=== PATIENT | female | born 1990 | race African-American/Black ===

== ENCOUNTER 2020-02-03 15:18 | Inpatient (IN) | payer BC ==
[2020-02-03] MEDS ORDERED: Lidocaine 1% 50 ML MDV INJECT PRN (15:54)
[2020-02-03] MEDS ORDERED: Water For Irrigation,Sterile 1,000 ML Container IRR PRN (15:54)
[2020-02-03] MEDS ORDERED: Tranexamic Acid 1,000 MG in Sodium Chloride 0.9% 100 ML IV PRN (15:54)
[2020-02-03] MEDS ORDERED: Nalbuphine 10 MG/1 ML Vial IVPUSH PRN (15:54)
[2020-02-03] MEDS ORDERED: Methylergonovine 0.2 MG/1 ML Amp IM PRN (15:54)
[2020-02-03] MEDS ORDERED: Misoprostol 200 MCG Tab PO PRN (15:54)
[2020-02-03] MEDS ORDERED: Sodium Chloride 0.9% 10 ML SDV IV PRN (15:54)
[2020-02-03] MEDS ORDERED: Sodium Chloride 0.9% 10 ML Syringe FLUSH PRN (15:54)
[2020-02-03] MEDS ORDERED: Sodium Chloride 0.9% 2.5 ML Syringe FLUSH PRN (15:54)
[2020-02-03] MEDS ORDERED: Butorphanol 1 MG/ML SDV IVPUSH PRN (15:54)
[2020-02-03] MEDS ORDERED: Carboprost Tromethamine 250 MCG/1 ML Amp IM PRN (15:54)
[2020-02-03] MEDS ORDERED: Oxytocin/0.9 % Sodium Chloride 30 UNIT/500 ML BAG IV SCH ×2 (16:00→21:00)
[2020-02-03] MEDS ORDERED: Lactated Ringers 1,000 ML IV SCH (16:00)
[2020-02-03] MEDS ORDERED: Bisacodyl 10 MG Supp RECTAL PRN ×2 (19:21→21:56)
[2020-02-03] MEDS ORDERED: oxyCODONE 5 MG Tab PO PRN ×2 (19:21→21:56)
[2020-02-03] MEDS ORDERED: Benzocaine/Menthol 20%-0.5% Spray 78 GM Cannister TOP PRN ×2 (19:21→21:56)
[2020-02-03] MEDS ORDERED: Acetaminophen 500 MG Tab PO PRN ×2 (19:21→21:56)
[2020-02-03] MEDS ORDERED: Docusate Sodium 100 MG Cap PO PRN ×2 (19:21→21:56)
[2020-02-03] MEDS ORDERED: Lanolin 100% Cream 7 GM Tube TOP PRN ×2 (19:21→21:56)
[2020-02-03] MEDS ORDERED: Witch Hazel Medicated Pads 40/Jar TOP PRN ×2 (19:21→21:56)
[2020-02-03] MEDS ORDERED: Ibuprofen 800 MG Tab PO PRN (19:21)
--- NOTE | 2020-02-03 22:00 | PCM.DEL ---
L & D Note - General Info Date of Service: 02/03/20 Mother's Due Date: 02/17/20 - Delivery Note Labor: Spontaneous Delivery Outcome: Livebirth Infant Delivery Method: Spontaneous Vaginal Delivery-Single Presentation: Vertex Nuchal Cord: None Anesthesia Type: None Amniotic Fluid Description: Clear Episiotomy Type: None Laceration: None Placenta: Intact, Spontaneous Cord: 3 Vessels : Bulb Syringe, Stimulated, [place] Used Score 1 min: 8 Score 5 min: 9 - General Info Date of Service: 02/03/20 - Patient Data Weight - Most Recent: 75.296 kg Lab Results Last 24 Hours: Laboratory Results - last 24 hr 02/03/20 02/03/20 Range/Units 17:08 17:08 WBC 8.67 (4.0-11.0) K/uL RBC 4.08 L (4.30-5.90) M/uL Hgb 11.6 L (12.0-16.0) g/dL Hct 35.8 L (36.0-46.0) % MCV 87.7 (80.0-98.0) fL MCH 28.4 (27.0-32.0) pg MCHC 32.4 (31.0-37.0) g/dL RDW Std Deviation 46.0 (28.0-62.0) fl RDW Coeff of Conchita 14 (11.0-15.0) % Plt Count 235 (150-400) K/uL MPV 12.00 (7.40-12.00) fL Nucleated RBC % 0.2 /100WBC Nucleated RBCs # 0 K/uL Blood Type A POSITIVE Antibody Screen NEGATIVE Med Orders - Current: Current Medications Acetaminophen (Tylenol Extra Strength) 1,000 mg PO Q6H PRN PRN Reason: Pain Benzocaine/Menthol (Dermoplast Pain Relief 20%-0.5% [place]) 78 gm TOP ASDIRECTED PRN PRN Reason: Perineal Comfort Measure Bisacodyl (Dulcolax) 10 mg RECTAL ONETIME PRN PRN Reason: Constipation Butorphanol Tartrate (Stadol) 1 mg IVPUSH Q1H PRN PRN Reason: Pain Last Admin: 02/03/20 21:14 Dose: 1 mg Carboprost Tromethamine (Hemabate Ds) 250 mcg IM ASDIRECTED PRN PRN Reason: Post Hemorrhage Docusate Sodium (Colace) 100 mg PO BID PRN PRN Reason: Constipation Emollient Ointment (Lansinoh Hpa) 0 gm TOP ASDIRECTED PRN PRN Reason: Sore Nipples Tranexamic Acid 1,000 mg/ (Sodium Chloride) 110 mls @ 660 mls/hr IV ONETIME PRN PRN Reason: Bleeding Lactated Ringer's (Ringers, Lactated) 1,000 mls @ 150 mls/hr IV ASDIRECTED MAE Oxytocin/Sodium Chloride (Oxytocin 30 Unit/500 Ml-Ns) 30 unit in 500 mls @ 500 mls/hr IV TITRATE MAE Last Admin: 02/03/20 21:48 Dose: 500 mls/hr Oxytocin/Sodium Chloride (Oxytocin 30 Unit/500 Ml-Ns) 30 unit in 500 mls @ 2 mls/hr IV TITRATE MAE; Protocol Ibuprofen (Motrin) 800 mg PO Q8H PRN PRN Reason: Pain Lidocaine HCl (Xylocaine 1%) 50 ml INJECT ONETIME PRN PRN Reason: Laceration repair Methylergonovine Maleate (Methergine) 0.2 mg IM ASDIRECTED PRN PRN Reason: Post Hemorrhage Misoprostol (Cytotec) 200 mcg PO ONETIME PRN PRN Reason: Post Hemorrhage Nalbuphine HCl (Nubain) 10 mg IVPUSH Q1H PRN PRN Reason: Pain (severe 7-10) Oxycodone HCl (Oxycodone) 5 mg PO Q2H PRN PRN Reason: Pain Sodium Chloride (Saline Flush) 10 ml FLUSH ASDIRECTED PRN PRN Reason: Keep Vein Open Sodium Chloride (Saline Flush) 2.5 ml FLUSH ASDIRECTED PRN PRN Reason: Keep Vein Open Sodium Chloride (Normal Saline) 10 ml IV ASDIRECTED PRN PRN Reason: IV Use Sterile Water (Sterile Water For Irrigation) 1,000 ml IRR ASDIRECTED PRN PRN Reason: delivery Last Admin: 02/03/20 21:48 Dose: 1,000 ml Witch Nayeli (Tucks) 1 pad TOP ASDIRECTED PRN PRN Reason: comfort care Discontinued Medications Acetaminophen (Tylenol Extra Strength) 1,000 mg PO Q6H PRN PRN Reason: Pain Benzocaine/Menthol (Dermoplast Pain Relief 20%-0.5% [place]) 78 gm TOP ASDIRECTED PRN PRN Reason: Perineal Comfort Measure Bisacodyl (Dulcolax) 10 mg RECTAL ONETIME PRN PRN Reason: Constipation Docusate Sodium (Colace) 100 mg PO BID PRN PRN Reason: Constipation Emollient Ointment (Lansinoh Hpa) 0 gm TOP ASDIRECTED PRN PRN Reason: Sore Nipples Ibuprofen (Motrin) 800 mg PO Q8H PRN PRN Reason: Pain Oxycodone HCl (Oxycodone) 5 mg PO Q2H PRN PRN Reason: Pain Witch Nayeli (Tucks) 1 pad TOP ASDIRECTED PRN PRN Reason: comfort care - Problem List & Annotations (1) Vaginal delivery SNOMED Code(s): 326122475 Code(s): O80 - ENCOUNTER FOR FULL-TERM UNCOMPLICATED DELIVERY Status: Acute Current Visit: Yes - Problem List Review Problem List Initiated/Reviewed/Updated: Yes - My Orders Last 24 Hours: My Active Orders 02/03/20 15:27 Up ad Jina [RC] ASDIRECTED Vital Signs [RC] PER UNIT ROUTINE Resuscitation Status Routine 02/03/20 15:54 Patient Status [ADT] Routine May Shower [RC] ASDIRECTED Notify Provider [RC] PRN Butorphanol [Stadol] 1 mg IVPUSH Q1H PRN Carboprost Tromethamine [Hemabate DS] 250 mcg IM ASDIRECTED PRN Lidocaine 1% [Xylocaine 1%] 50 ml INJECT ONETIME PRN Methylergonovine [Methergine] 0.2 mg IM ASDIRECTED PRN Nalbuphine [Nubain] 10 mg IVPUSH Q1H PRN Sodium Chloride 0.9% [Normal Saline] 10 ml IV ASDIRECTED PRN Sodium Chloride 0.9% [Saline Flush] 10 ml FLUSH ASDIRECTED PRN Sodium Chloride 0.9% [Saline Flush] 2.5 ml FLUSH ASDIRECTED PRN Tranexamic Acid [Cyklokapron] 1,000 mg Sodium Chloride 0.9% [Normal Saline] 100 ml IV ONETIME Water For Irrigation,Sterile [Sterile Water for Irrigation] 1,000 ml IRR ASDIRECTED PRN miSOPROStoL [Cytotec] 200 mcg PO ONETIME PRN Scalp Electrode [WOMSER] Per Unit Routine Peripheral IV Insertion Adult [OM.PC] Routine 02/03/20 16:00 Lactated Ringers [Ringers, Lactated] 1,000 ml IV ASDIRECTED Oxytocin/0.9 % Sodium Chloride [Oxytocin 30 Unit/500 ML-NS] 30 unit in 500 ml IV TITRATE 02/03/20 17:08 RPR (SYPHILIS SERO) W/ RFLX [REF] Routine 02/03/20 19:21 May Shower [RC] ASDIRECTED Notify Provider Vital Signs [RC] ASDIRECTED Up ad Jina [RC] ASDIRECTED Vital Signs [RC] PER UNIT ROUTINE 02/03/20 19:22 Cooling Warming Measures [RC] ASDIRECTED 02/03/20 21:00 Oxytocin/0.9 % Sodium Chloride [Oxytocin 30 Unit/500 ML-NS] 30 unit in 500 ml IV TITRATE 02/03/20 21:56 Patient Status [ADT] Routine Cooling Warming Measures [RC] ASDIRECTED May Shower [RC] ASDIRECTED Notify Provider Vital Signs [RC] ASDIRECTED Up ad Jina [RC] ASDIRECTED Vital Signs [RC] PER UNIT ROUTINE Acetaminophen [Tylenol Extra Strength] 1,000 mg PO Q6H PRN Benzocaine/Menthol [Dermoplast Pain Relief 20%-0.5% [place]] 78 gm TOP ASDIRECTED PRN Docusate Sodium [Colace] 100 mg PO BID PRN Ibuprofen [Motrin] 800 mg PO Q8H PRN Lanolin [Lansinoh HPA] See Dose Instructions TOP ASDIRECTED PRN bisacodyL [Dulcolax] 10 mg RECTAL ONETIME PRN oxyCODONE 5 mg PO Q2H PRN witch Nayeli [Tucks] 1 pad TOP ASDIRECTED PRN Assess Lochia [WOMSER] Per Unit Routine Assess Uterine Involution [WOMSER] Per Unit Routine Breast Pump [WOMSER] Per Unit Routine Ice Therapy [OM.PC] Per Unit Routine Perineal Care [OM.PC] Per Unit Routine Peripheral IV Discontinue [OM.PC] Routine Sitz Bath [OM.PC] Per Unit Routine 02/03/20 Dinner Clear Liquid Diet [DIET] Regular Diet [DIET] 02/04/20 05:11 HEMOGLOBIN/HEMATOCRIT,HH [HEME] Timed - Assessment Assessment:: 29yo s/p at 38w0d. - Plan Plan:: Admit to unit for routine care.
--- NOTE | 2020-02-03 22:59 | OR ---
SURGEON: Margot Dumont MD DATE OF PROCEDURE: 02/03/2020 PREOPERATIVE DIAGNOSES: 1. A 29-year-old G3, P2-0-0-2 at 38 weeks and 0 days' gestation. 2. Spontaneous rupture of membranes. 3. GBS negative. POSTOPERATIVE DIAGNOSES: 1. A 29-year-old G3, P2-0-0-2, status post spontaneous vaginal delivery at 38 weeks and 0 days' gestation. 2. GBS negative. PROCEDURE: Spontaneous vaginal delivery. PRIMARY SURGEON: Margot Dumont MD ANESTHESIA: None. FINDINGS: Live male in cephalic presentation. score of 8 and 9 at one and five minutes respectively. Weight pending. Placenta intact with three-vessel cord. No perineal lacerations. INDICATIONS: This is a 29-year-old G3, P2-0-0-2, who presented at 38 weeks and 0 days' gestation complaining of spontaneous rupture of membranes at roughly 2 p.m. Upon presentation, her cervix was found to be 1 cm dilated, but she was bud. She progressed to 3 cm dilated and remained for 3 hours. At this time, a decision was made to start Pitocin, however, before the Pitocin could be started, the patient progressed to 6 cm, and shortly thereafter became complete. I was called to the room. DESCRIPTION OF PROCEDURE: The patient progressed to complete cervical dilation. She began pushing. The head delivered, followed quickly by the shoulders and the remainder of the body. The infant was placed on the maternal abdomen. After approximately 60 seconds, the cord was clamped and cut. The placenta then delivered intact and with three- vessel cord via the Lei-Mulligan maneuver. The perineum was inspected and no lacerations were noted. Estimated blood loss was 200 mL. The fundus was firm with minimal lochia. The infant and the patient tolerated the delivery well. [id number] / MODL /[id number]
[2020-02-04] MEDS: Ibuprofen 800 MG Tab PO PRN ×2 (01:17→19:27)
--- NOTE | 2020-02-04 12:19 | PCM.PNPP ---
- General Info Date of Service: 02/04/20 Admission Dx/Problem (Free Text): Patient doing well. Minimal lochia. Pain controlled. Voiding, ambulating, and tolerating oral intake. going well. Functional Status: Reports: Pain Controlled, Tolerating Diet, Ambulating, Urinating - Review of Systems General: Reports: No Symptoms HEENT: Reports: No Symptoms Pulmonary: Reports: No Symptoms Cardiovascular: Reports: No Symptoms Gastrointestinal: Reports: No Symptoms Genitourinary: Reports: No Symptoms Musculoskeletal: Reports: No Symptoms Skin: Reports: No Symptoms Neurological: Reports: No Symptoms Psychiatric: Reports: No Symptoms - Patient Data Vital Signs - Most Recent: Last Vital Signs Temp 36.1 C 02/04/20 08:30 Pulse 73 02/04/20 08:30 Resp 16 02/04/20 08:30 BP 122/89 02/04/20 08:30 Pulse Ox 100 02/04/20 08:30 Weight - Most Recent: 75.296 kg Lab Results - Last 24 Hours: Laboratory Results - last 24 hr 02/03/20 02/03/20 02/04/20 Range/Units 17:08 17:08 05:55 WBC 8.67 (4.0-11.0) K/uL RBC 4.08 L (4.30-5.90) M/uL Hgb 11.6 L 11.4 L (12.0-16.0) g/dL Hct 35.8 L 35.3 L (36.0-46.0) % MCV 87.7 (80.0-98.0) fL MCH 28.4 (27.0-32.0) pg MCHC 32.4 (31.0-37.0) g/dL RDW Std Deviation 46.0 (28.0-62.0) fl RDW Coeff of Conchita 14 (11.0-15.0) % Plt Count 235 (150-400) K/uL MPV 12.00 (7.40-12.00) fL Nucleated RBC % 0.2 /100WBC Nucleated RBCs # 0 K/uL Blood Type A POSITIVE Antibody Screen NEGATIVE Med Orders - Current: Current Medications Acetaminophen (Tylenol Extra Strength) 1,000 mg PO Q6H PRN PRN Reason: Pain Last Admin: 02/04/20 08:38 Dose: 1,000 mg Benzocaine/Menthol (Dermoplast Pain Relief 20%-0.5% [place]) 78 gm TOP ASDIRECTED PRN PRN Reason: Perineal Comfort Measure Bisacodyl (Dulcolax) 10 mg RECTAL ONETIME PRN PRN Reason: Constipation Butorphanol Tartrate (Stadol) 1 mg IVPUSH Q1H PRN PRN Reason: Pain Last Admin: 02/03/20 21:14 Dose: 1 mg Carboprost Tromethamine (Hemabate Ds) 250 mcg IM ASDIRECTED PRN PRN Reason: Post Hemorrhage Docusate Sodium (Colace) 100 mg PO BID PRN PRN Reason: Constipation Last Admin: 02/04/20 08:37 Dose: 100 mg Emollient Ointment (Lansinoh Hpa) 0 gm TOP ASDIRECTED PRN PRN Reason: Sore Nipples Tranexamic Acid 1,000 mg/ (Sodium Chloride) 110 mls @ 660 mls/hr IV ONETIME PRN PRN Reason: Bleeding Lactated Ringer's (Ringers, Lactated) 1,000 mls @ 150 mls/hr IV ASDIRECTED MAE Oxytocin/Sodium Chloride (Oxytocin 30 Unit/500 Ml-Ns) 30 unit in 500 mls @ 500 mls/hr IV TITRATE MAE Last Admin: 02/03/20 21:48 Dose: 500 mls/hr Oxytocin/Sodium Chloride (Oxytocin 30 Unit/500 Ml-Ns) 30 unit in 500 mls @ 2 mls/hr IV TITRATE MAE; Protocol Ibuprofen (Motrin) 800 mg PO Q8H PRN PRN Reason: Pain Last Admin: 02/04/20 01:17 Dose: 800 mg Lidocaine HCl (Xylocaine 1%) 50 ml INJECT ONETIME PRN PRN Reason: Laceration repair Methylergonovine Maleate (Methergine) 0.2 mg IM ASDIRECTED PRN PRN Reason: Post Hemorrhage Misoprostol (Cytotec) 200 mcg PO ONETIME PRN PRN Reason: Post Hemorrhage Nalbuphine HCl (Nubain) 10 mg IVPUSH Q1H PRN PRN Reason: Pain (severe 7-10) Oxycodone HCl (Oxycodone) 5 mg PO Q2H PRN PRN Reason: Pain Sodium Chloride (Saline Flush) 10 ml FLUSH ASDIRECTED PRN PRN Reason: Keep Vein Open Sodium Chloride (Saline Flush) 2.5 ml FLUSH ASDIRECTED PRN PRN Reason: Keep Vein Open Sodium Chloride (Normal Saline) 10 ml IV ASDIRECTED PRN PRN Reason: IV Use Sterile Water (Sterile Water For Irrigation) 1,000 ml IRR ASDIRECTED PRN PRN Reason: delivery Last Admin: 02/03/20 21:48 Dose: 1,000 ml Witch Nayeli (Tucks) 1 pad TOP ASDIRECTED PRN PRN Reason: comfort care Discontinued Medications Acetaminophen (Tylenol Extra Strength) 1,000 mg PO Q6H PRN PRN Reason: Pain Benzocaine/Menthol (Dermoplast Pain Relief 20%-0.5% [place]) 78 gm TOP ASDIRECTED PRN PRN Reason: Perineal Comfort Measure Bisacodyl (Dulcolax) 10 mg RECTAL ONETIME PRN PRN Reason: Constipation Docusate Sodium (Colace) 100 mg PO BID PRN PRN Reason: Constipation Emollient Ointment (Lansinoh Hpa) 0 gm TOP ASDIRECTED PRN PRN Reason: Sore Nipples Ibuprofen (Motrin) 800 mg PO Q8H PRN PRN Reason: Pain Oxycodone HCl (Oxycodone) 5 mg PO Q2H PRN PRN Reason: Pain Witch Nayeli (Tucks) 1 pad TOP ASDIRECTED PRN PRN Reason: comfort care - Infant Interaction Disposition, : [place] to Nursery Feeding: Attempted ; Nursed Fair/Poor Support Person: - Recovery Exam Fundal Tone: Firm Fundal Level: 2 Fingerbreadths Below Umbilicus Fundal Placement: Midline Lochia Amount: Scant Lochia Color: Rubra/Red Bladder Status: Voiding Urinary Elimination: Voided - Exam General: Alert Neck: Supple Lungs: Clear to Auscultation, Normal Respiratory Effort Cardiovascular: Regular Rate, Regular Rhythm GI/Abdominal Exam: Soft, Non-Tender Extremities: Non-Tender, No Pedal Edema Skin: Warm, Dry, Intact Neurological: No New Focal Deficit Psy/Mental Status: Alert, Normal Affect, Normal Mood - Problem List & Annotations (1) Vaginal delivery SNOMED Code(s): 895037726 Code(s): O80 - ENCOUNTER FOR FULL-TERM UNCOMPLICATED DELIVERY Status: Acute Current Visit: Yes - Problem List Review Problem List Initiated/Reviewed/Updated: Yes - My Orders Last 24 Hours: My Active Orders 02/03/20 15:27 Vital Signs [RC] PER UNIT ROUTINE Resuscitation Status Routine 02/03/20 15:54 Patient Status [ADT] Routine Notify Provider [RC] PRN Butorphanol [Stadol] 1 mg IVPUSH Q1H PRN Carboprost Tromethamine [Hemabate DS] 250 mcg IM ASDIRECTED PRN Lidocaine 1% [Xylocaine 1%] 50 ml INJECT ONETIME PRN Methylergonovine [Methergine] 0.2 mg IM ASDIRECTED PRN Nalbuphine [Nubain] 10 mg IVPUSH Q1H PRN Sodium Chloride 0.9% [Normal Saline] 10 ml IV ASDIRECTED PRN Sodium Chloride 0.9% [Saline Flush] 10 ml FLUSH ASDIRECTED PRN Sodium Chloride 0.9% [Saline Flush] 2.5 ml FLUSH ASDIRECTED PRN Tranexamic Acid [Cyklokapron] 1,000 mg Sodium Chloride 0.9% [Normal Saline] 100 ml IV ONETIME Water For Irrigation,Sterile [Sterile Water for Irrigation] 1,000 ml IRR ASDIRECTED PRN miSOPROStoL [Cytotec] 200 mcg PO ONETIME PRN Scalp Electrode [WOMSER] Per Unit Routine Peripheral IV Insertion Adult [OM.PC] Routine 02/03/20 16:00 Lactated Ringers [Ringers, Lactated] 1,000 ml IV ASDIRECTED Oxytocin/0.9 % Sodium Chloride [Oxytocin 30 Unit/500 ML-NS] 30 unit in 500 ml IV TITRATE 02/03/20 17:08 RPR (SYPHILIS SERO) W/ RFLX [REF] Routine 02/03/20 19:21 May Shower [RC] ASDIRECTED Notify Provider Vital Signs [RC] ASDIRECTED Up ad Jina [RC] ASDIRECTED Vital Signs [RC] PER UNIT ROUTINE 02/03/20 19:22 Cooling Warming Measures [RC] ASDIRECTED 02/03/20 21:00 Oxytocin/0.9 % Sodium Chloride [Oxytocin 30 Unit/500 ML-NS] 30 unit in 500 ml IV TITRATE 02/03/20 21:56 Patient Status [ADT] Routine May Shower [RC] ASDIRECTED Notify Provider Vital Signs [RC] ASDIRECTED Up ad Jina [RC] ASDIRECTED Acetaminophen [Tylenol Extra Strength] 1,000 mg PO Q6H PRN Benzocaine/Menthol [Dermoplast Pain Relief 20%-0.5% [place]] 78 gm TOP ASDIRECTED PRN Docusate Sodium [Colace] 100 mg PO BID PRN Ibuprofen [Motrin] 800 mg PO Q8H PRN Lanolin [Lansinoh HPA] See Dose Instructions TOP ASDIRECTED PRN bisacodyL [Dulcolax] 10 mg RECTAL ONETIME PRN oxyCODONE 5 mg PO Q2H PRN witch Nayeli [Tucks] 1 pad TOP ASDIRECTED PRN Assess Lochia [WOMSER] Per Unit Routine Assess Uterine Involution [WOMSER] Per Unit Routine Breast Pump [WOMSER] Per Unit Routine Ice Therapy [OM.PC] Per Unit Routine Perineal Care [OM.PC] Per Unit Routine Peripheral IV Discontinue [OM.PC] Routine Sitz Bath [OM.PC] Per Unit Routine 02/03/20 Dinner Clear Liquid Diet [DIET] Regular Diet [DIET] 02/04/20 12:17 Ready for Discharge [RC] PER UNIT ROUTINE - Assessment Assessment:: 29yo s/p at 38w0d, PPD#1. - Plan Plan:: Patient desires discharge home today. Reviewed discharge instructions. All questions answered.
--- NOTE | 2020-02-05 07:26 | PCM.PNPP ---
- General Info Date of Service: 02/05/20 Admission Dx/Problem (Free Text): Patient doing well. Minimal lochia. Pain controlled. Voiding, ambulating, and tolerating oral intake. going well. Functional Status: Reports: Pain Controlled, Tolerating Diet, Ambulating, Urinating - Review of Systems General: Reports: No Symptoms HEENT: Reports: No Symptoms Pulmonary: Reports: No Symptoms Cardiovascular: Reports: No Symptoms Gastrointestinal: Reports: No Symptoms Genitourinary: Reports: No Symptoms Musculoskeletal: Reports: No Symptoms Skin: Reports: No Symptoms Neurological: Reports: No Symptoms Psychiatric: Reports: No Symptoms - Patient Data Vital Signs - Most Recent: Last Vital Signs Temp 36.6 C 02/05/20 04:22 Pulse 75 02/05/20 04:22 Resp 18 02/05/20 04:22 BP 112/73 02/05/20 04:22 Pulse Ox 98 02/05/20 04:22 Weight - Most Recent: 75.296 kg Med Orders - Current: Current Medications Acetaminophen (Tylenol Extra Strength) 1,000 mg PO Q6H PRN PRN Reason: Pain Last Admin: 02/04/20 08:38 Dose: 1,000 mg Benzocaine/Menthol (Dermoplast Pain Relief 20%-0.5% [place]) 78 gm TOP ASDIRECTED PRN PRN Reason: Perineal Comfort Measure Bisacodyl (Dulcolax) 10 mg RECTAL ONETIME PRN PRN Reason: Constipation Butorphanol Tartrate (Stadol) 1 mg IVPUSH Q1H PRN PRN Reason: Pain Last Admin: 02/03/20 21:14 Dose: 1 mg Carboprost Tromethamine (Hemabate Ds) 250 mcg IM ASDIRECTED PRN PRN Reason: Post Hemorrhage Docusate Sodium (Colace) 100 mg PO BID PRN PRN Reason: Constipation Last Admin: 02/04/20 08:37 Dose: 100 mg Emollient Ointment (Lansinoh Hpa) 0 gm TOP ASDIRECTED PRN PRN Reason: Sore Nipples Tranexamic Acid 1,000 mg/ (Sodium Chloride) 110 mls @ 660 mls/hr IV ONETIME PRN PRN Reason: Bleeding Lactated Ringer's (Ringers, Lactated) 1,000 mls @ 150 mls/hr IV ASDIRECTED MAE Oxytocin/Sodium Chloride (Oxytocin 30 Unit/500 Ml-Ns) 30 unit in 500 mls @ 500 mls/hr IV TITRATE MAE Last Admin: 02/03/20 21:48 Dose: 500 mls/hr Oxytocin/Sodium Chloride (Oxytocin 30 Unit/500 Ml-Ns) 30 unit in 500 mls @ 2 mls/hr IV TITRATE MAE; Protocol Ibuprofen (Motrin) 800 mg PO Q8H PRN PRN Reason: Pain Last Admin: 02/04/20 19:27 Dose: 800 mg Lidocaine HCl (Xylocaine 1%) 50 ml INJECT ONETIME PRN PRN Reason: Laceration repair Methylergonovine Maleate (Methergine) 0.2 mg IM ASDIRECTED PRN PRN Reason: Post Hemorrhage Misoprostol (Cytotec) 200 mcg PO ONETIME PRN PRN Reason: Post Hemorrhage Nalbuphine HCl (Nubain) 10 mg IVPUSH Q1H PRN PRN Reason: Pain (severe 7-10) Oxycodone HCl (Oxycodone) 5 mg PO Q2H PRN PRN Reason: Pain Sodium Chloride (Saline Flush) 10 ml FLUSH ASDIRECTED PRN PRN Reason: Keep Vein Open Sodium Chloride (Saline Flush) 2.5 ml FLUSH ASDIRECTED PRN PRN Reason: Keep Vein Open Sodium Chloride (Normal Saline) 10 ml IV ASDIRECTED PRN PRN Reason: IV Use Sterile Water (Sterile Water For Irrigation) 1,000 ml IRR ASDIRECTED PRN PRN Reason: delivery Last Admin: 02/03/20 21:48 Dose: 1,000 ml Witch Nayeli (Tucks) 1 pad TOP ASDIRECTED PRN PRN Reason: comfort care Discontinued Medications Acetaminophen (Tylenol Extra Strength) 1,000 mg PO Q6H PRN PRN Reason: Pain Benzocaine/Menthol (Dermoplast Pain Relief 20%-0.5% [place]) 78 gm TOP ASDIRECTED PRN PRN Reason: Perineal Comfort Measure Bisacodyl (Dulcolax) 10 mg RECTAL ONETIME PRN PRN Reason: Constipation Docusate Sodium (Colace) 100 mg PO BID PRN PRN Reason: Constipation Emollient Ointment (Lansinoh Hpa) 0 gm TOP ASDIRECTED PRN PRN Reason: Sore Nipples Ibuprofen (Motrin) 800 mg PO Q8H PRN PRN Reason: Pain Oxycodone HCl (Oxycodone) 5 mg PO Q2H PRN PRN Reason: Pain Witch Nayeli (Tucks) 1 pad TOP ASDIRECTED PRN PRN Reason: comfort care - Interaction Disposition, : [place] in Room with Family Infant Interaction: Holding Infant Infant Feeding: Attempted ; Nursed Fair/Poor Support Person: - Recovery Exam Fundal Tone: Firm Fundal Level: 2 Fingerbreadths Below Umbilicus Fundal Placement: Midline Lochia Amount: Scant Lochia Color: Rubra/Red Bladder Status: Voiding Urinary Elimination: Voided - Exam General: Alert, Oriented Neck: Supple Lungs: Clear to Auscultation, Normal Respiratory Effort Cardiovascular: Regular Rate, Regular Rhythm GI/Abdominal Exam: Soft, Non-Tender Extremities: Non-Tender Skin: Warm, Dry, Intact Neurological: No New Focal Deficit Psy/Mental Status: Alert, Normal Affect, Normal Mood - Problem List & Annotations (1) Vaginal delivery SNOMED Code(s): 922145900 Code(s): O80 - ENCOUNTER FOR FULL-TERM UNCOMPLICATED DELIVERY Status: Acute Current Visit: Yes - Problem List Review Problem List Initiated/Reviewed/Updated: Yes - My Orders Last 24 Hours: My Active Orders 02/04/20 12:17 Ready for Discharge [RC] PER UNIT ROUTINE 02/05/20 07:17 Ready for Discharge [RC] PER UNIT ROUTINE - Assessment Assessment:: 29yo s/p at 38w0d, PPD#2. - Plan Plan:: Patient desires discharge home today. Reviewed discharge instructions. All questions answered.
[2020-02-05 10:04] VITALS: BP 109/84; PULSE 90
== END 2020-02-05 11:55 | disposition home or self-care (01) | DRG 560 ==
LOC: MW.OBCHECK 15:18 → MW.OB 15:20 → MW.OBCHECK 15:54 → OBSVTOIN 19:21 → MW.OB 02-04 06:47
PROVIDERS: ADMIT Obstetrics & Gynecology; ATTEND Obstetrics & Gynecology
PROC: 10E0XZZ Delivery of Products of Conception, External Approach (ICD-10-PCS; principal; 2020-02-03)
DX: O76 Abnormality in fetal heart rate and rhythm complicating labor and delivery (principal); Z3A.38 38 weeks gestation of pregnancy; Z37.0 Single live birth
CPT/HCPCS: 36415; 59025; 59300; 59409; 84112; 85014; 85018; 85027; 86592; 86593; 86850; 86900; 86901; A9270-GY; J0595; J2590

== ENCOUNTER 2020-04-02 13:42 | Emergency (ER) | payer BC ==
--- NOTE | 2020-04-02 14:21 | EDM.PDOC ---
ED HPI GENERAL MEDICAL PROBLEM - General Chief Complaint: Back Pain or Injury Stated Complaint: BACK PAIN Time Seen by Provider: 04/02/20 13:57 Source of Information: Reports: Patient History Limitations: Reports: No Limitations - History of Present Illness INITIAL COMMENTS - FREE TEXT/NARRATIVE: Presents reporting right back pain just next to the spine. The patient states that she had the same pain in the ribs below the axilla a day or 2 ago but that went away. It had awoken her during the night as did this pain. The pain increases with a deep breath or cough. No dysuria, fever, shortness of breath, cough or injury. She did not take anything for it. She is otherwise healthy without chronic medical problems. Status post normal spontaneous vaginal delivery in early January and is nursing. Sexually active not on control. She does not smoke. Right Upper Back Pain Score (Numeric/FACES): 10 - Related Data Allergies Allergy/AdvReac Type Severity Reaction Status Date / Time No Known Allergies Allergy Verified 04/02/20 13:57 Home Meds: Home Meds Apixaban [Eliquis] 5 mg PO BID #74 tablet 04/02/20 [Rx] Past Medical History - Past Health History Medical/Surgical History: Denies Medical/Surgical History [employer] History: Reports: Social & Family History - Family History Family Medical History: Noncontributory - Tobacco Use Smoking Status *Q: Never Smoker Second Hand Smoke Exposure: No - Caffeine Use Caffeine Use: Reports: Soda - Recreational Drug Use Recreational Drug Use: No ED ROS GENERAL - Review of Systems Review Of Systems: Comprehensive ROS is negative, except as noted in HPI. ED EXAM, UPPER BACK/NECK PAIN - Physical Exam Exam: See Below Exam Limited By: No Limitations General Appearance: Alert, No Apparent Distress Ears Exam: Normal External Exam Nose Exam: Normal Inspection Throat/Mouth Exam: Normal Inspection Head Exam: Atraumatic, Normocephalic Neck Exam: Non-Tender, Full Range of Motion Cardiovascular/Respiratory: Regular Rate, Rhythm, Normal Breath Sounds, No Respiratory Distress Back Exam: Normal Inspection, Full Range of Motion, Other (Patient indicates pain at the costovertebral angle at T5-7). No: CVA Tenderness (L), Paraspinal Tenderness, Vertebral Tenderness Extremities: Normal Inspection Neurologic: No Motor/Sensory Deficits Psychiatric: Normal Affect, Normal Mood Skin Exam: Normal Color Course - Vital Signs Last Recorded V/S: Last Vital Signs Temp 36.6 C 04/02/20 13:57 Pulse 92 04/02/20 18:43 Resp 16 04/02/20 18:43 BP 137/93 H 04/02/20 18:43 Pulse Ox 97 04/02/20 18:43 - Orders/Labs/Meds Orders: Active Orders 24 hr Category Date Time Status EKG 12 Lead [EKG Documentation Completion] [RC] ROUTINE Care 04/02/20 16:45 Ordered Labs: Laboratory Tests 04/02/20 04/02/20 04/02/20 Range/Units 14:27 14:27 16:32 WBC (4.0-11.0) K/uL RBC (4.30-5.90) M/uL Hgb (12.0-16.0) g/dL Hct (36.0-46.0) % MCV (80.0-98.0) fL MCH (27.0-32.0) pg MCHC (31.0-37.0) g/dL RDW Std Deviation (28.0-62.0) fl RDW Coeff of Conchita (11.0-15.0) % Plt Count (150-400) K/uL MPV (7.40-12.00) fL Neut % (Auto) (48.0-80.0) % Lymph % (Auto) (16.0-40.0) % Roane % (Auto) (0.0-15.0) % Eos % (Auto) (0.0-7.0) % Baso % (Auto) (0.0-1.5) % Neut # (Auto) (1.4-5.7) K/uL Lymph # (Auto) (0.6-2.4) K/uL [place] # (Auto) (0.0-0.8) K/uL Eos # (Auto) (0.0-0.7) K/uL Baso # (Auto) (0.0-0.1) K/uL Nucleated RBC % /100WBC Nucleated RBCs # K/uL ESR 31 H (0-19) mm/hr D-Dimer, Quantitative (0.0-0.50) mg/L FEU Sodium (136-145) mmol/L Potassium (3.5-5.1) mmol/L Chloride (98-107) mmol/L Carbon Dioxide (21.0-32.0) mmol/L BUN (7.0-18.0) mg/dL Creatinine (0.6-1.0) mg/dL Est Cr Clr Drug Dosing mL/min Estimated GFR (MDRD) ml/min Glucose (74-106) mg/dL Calcium (8.5-10.1) mg/dL Total Bilirubin (0.2-1.0) mg/dL AST (15-37) IU/L ALT (14-63) IU/L Alkaline Phosphatase (46-116) U/L C-Reactive Protein (0.00-0.90) mg/dL Total Protein (6.4-8.2) g/dL Albumin (3.4-5.0) g/dL Globulin (2.6-4.0) g/dL Albumin/Globulin Ratio (0.9-1.6) Urine Color YELLOW Urine Appearance SLT CLOUDY Urine pH 6.0 (5.0-8.0) Ur Specific [place] >= 1.030 (1.001-1.035) Urine Protein 30 H (NEGATIVE) mg/dL Urine Glucose (UA) NEGATIVE (NEGATIVE) mg/dL Urine Ketones TRACE H (NEGATIVE) mg/dL Urine Occult Blood TRACE-INTACT H (NEGATIVE) Urine Nitrite NEGATIVE (NEGATIVE) Urine Bilirubin SMALL H (NEGATIVE) Urine Ictotest NEGATIVE Urine Urobilinogen 0.2 (<2.0) EU/dL Ur Leukocyte Esterase NEGATIVE (NEGATIVE) Urine RBC 0-2 (0-2/HPF) Urine WBC 0-2 (0-5/HPF) Ur Epithelial Cells MODERATE (NONE-FEW) Urine Bacteria FEW (NEGATIVE) Urine Mucus MODERATE (NONE-MOD) Urine HCG, Qual NEGATIVE (NEGATIVE) 04/02/20 04/02/20 04/02/20 Range/Units 16:32 16:32 16:32 WBC 9.54 (4.0-11.0) K/uL RBC 4.93 (4.30-5.90) M/uL Hgb 13.7 (12.0-16.0) g/dL Hct 42.6 (36.0-46.0) % MCV 86.4 (80.0-98.0) fL MCH 27.8 (27.0-32.0) pg MCHC 32.2 (31.0-37.0) g/dL RDW Std Deviation 43.8 (28.0-62.0) fl RDW Coeff of Conchita 14 (11.0-15.0) % Plt Count 435 H (150-400) K/uL MPV 10.40 (7.40-12.00) fL Neut % (Auto) 67.1 (48.0-80.0) % Lymph % (Auto) 24.4 (16.0-40.0) % Roane % (Auto) 6.6 (0.0-15.0) % Eos % (Auto) 1.6 (0.0-7.0) % Baso % (Auto) 0.3 (0.0-1.5) % Neut # (Auto) 6.4 H (1.4-5.7) K/uL Lymph # (Auto) 2.3 (0.6-2.4) K/uL [place] # (Auto) 0.6 (0.0-0.8) K/uL Eos # (Auto) 0.2 (0.0-0.7) K/uL Baso # (Auto) 0.0 (0.0-0.1) K/uL Nucleated RBC % 0.0 /100WBC Nucleated RBCs # 0 K/uL ESR (0-19) mm/hr D-Dimer, Quantitative 2.06 H (0.0-0.50) mg/L FEU Sodium 139 (136-145) mmol/L Potassium 3.8 (3.5-5.1) mmol/L Chloride 102 (98-107) mmol/L Carbon Dioxide 25.8 (21.0-32.0) mmol/L BUN 16 (7.0-18.0) mg/dL Creatinine 0.7 (0.6-1.0) mg/dL Est Cr Clr Drug Dosing 101.48 mL/min Estimated GFR (MDRD) > 60.0 ml/min Glucose 78 (74-106) mg/dL Calcium 9.4 (8.5-10.1) mg/dL Total Bilirubin 0.5 (0.2-1.0) mg/dL AST 17 (15-37) IU/L ALT 15 (14-63) IU/L Alkaline Phosphatase 107 (46-116) U/L C-Reactive Protein 15.70 H (0.00-0.90) mg/dL Total Protein 8.4 H (6.4-8.2) g/dL Albumin 3.9 (3.4-5.0) g/dL Globulin 4.5 H (2.6-4.0) g/dL Albumin/Globulin Ratio 0.9 (0.9-1.6) Urine Color Urine Appearance Urine pH (5.0-8.0) Ur Specific [place] (1.001-1.035) Urine Protein (NEGATIVE) mg/dL Urine Glucose (UA) (NEGATIVE) mg/dL Urine Ketones (NEGATIVE) mg/dL Urine Occult Blood (NEGATIVE) Urine Nitrite (NEGATIVE) Urine Bilirubin (NEGATIVE) Urine Ictotest Urine Urobilinogen (<2.0) EU/dL Ur Leukocyte Esterase (NEGATIVE) Urine RBC (0-2/HPF) Urine WBC (0-5/HPF) Ur Epithelial Cells (NONE-FEW) Urine Bacteria (NEGATIVE) Urine Mucus (NONE-MOD) Urine HCG, Qual (NEGATIVE) Meds: Medications Discontinued Medications Generic Name Dose Route Start Last Admin Trade Name Freq PRN Reason Stop Dose Admin Iopamidol 50 ml 04/02/20 18:20 04/02/20 18:20 Isovue Multipack-370 (76%) IVPUSH 04/02/20 18:21 50 ml ONETIME STA Administration - Re-Assessments/Exams Free Text/Narrative Re-Assessment/Exam: 04/02/20 19:36 Dr. Prieto was consulted regarding management of this patient. Departure - Departure Time of Disposition: 19:27 Disposition: Home, Self-Care 01 Condition: Good Clinical Impression: Pulmonary embolism - Discharge Information Prescriptions: Apixaban [Eliquis] 5 mg PO BID #74 tablet Referrals: PCP,None [Primary Care Provider] - Forms: ED Department Discharge Additional Instructions: The following information is given to patients seen in the emergency department who are being discharged to home. This information is to outline your options for follow-up care. We provide all patients seen in our emergency department with a follow-up referral. The need for follow-up, as well as the timing and circumstances, are variable depending upon the specifics of your emergency department visit. If you don't have a primary care physician on staff, we will provide you with a referral. We always advise you to contact your personal physician following an emergency department visit to inform them of the circumstance of the visit and for follow-up with them and/or the need for any referrals to a consulting specialist. The emergency department will also refer you to a specialist when appropriate. This referral assures that you have the opportunity for follow-up care with a specialist. All of these measure are taken in an effort to provide you with optimal care, which includes your follow-up. Under all circumstances we always encourage you to contact your private physician who remains a resource for coordinating your care. When calling for follow-up care, please make the office aware that this follow-up is from your recent emergency room visit. If for any reason you are refused follow-up, please contact the [facility] Emergency Department at and asked to speak to the emergency department charge nurse. 1. You must follow-up in primary care. You will get a phone call about your appointment. 2. Eliquis 5m tabs twice daily for 7 days then 1 tab twice daily. Start tonight. This is a blood thinner. 3. Return promptly for breathing problems. Sepsis Event Note - Evaluation Sepsis Screening Result: No Definite Risk - Focused Exam Vital Signs: Vital Signs Temp Pulse Resp BP Pulse Ox 04/02/20 18:43 92 16 137/93 H 97 04/02/20 17:18 144/98 H 04/02/20 15:51 101 H 16 134/98 H 98 04/02/20 13:57 36.6 C 120 H 16 143/110 H 98 Date Exam was Performed: 04/02/20 Time Exam was Performed: 19:25 - My Orders Last 24 Hours: My Active Orders 04/02/20 16:45 EKG 12 Lead [EKG Documentation Completion] [RC] ROUTINE - Assessment/Plan Last 24 Hours: My Active Orders 04/02/20 16:45 EKG 12 Lead [EKG Documentation Completion] [RC] ROUTINE
--- NOTE | 2020-04-02 15:56 | CR ---
Chest: 2 views of the chest were obtained. Comparison: No prior chest imaging is available. Heart is enlarged. Hazy density within both lung bases most likely due to small pleural effusions. Lungs otherwise are clear. Bony structures are unremarkable. Impression: 1. Cardiomegaly and probable small bilateral pleural effusions. Diagnostic code #3 This report was dictated in MDT
[2020-04-02 17:04] LABS: BLOOD UREA NITROGEN,BUN 16 mg/dL (7.0-18.0); CARBON DIOXIDE,CO2 25.8 mmol/L (21.0-32.0); CHLORIDE,CL 102 mmol/L (98-107); GLUCOSE RANDOM 78 mg/dL (74-106); POTASSIUM,K 3.8 mmol/L (3.5-5.1); SODIUM,NA 139 mmol/L (136-145)
[2020-04-02] MEDS ORDERED: Iopamidol 755 MG/ML 200 ML Multipack Bottle IVPUSH STA (18:20)
--- NOTE | 2020-04-02 19:17 | CT ---
INDICATION: Cardiomegaly. Right-sided chest pain near the costovertebral angle. Two months COMPARISON: A chest radiograph from April 02, 2020 TECHNIQUE: : CT examination of the chest was performed with the uneventful intravenous administration of 50 cc of Isovue 370 while thin axial sections were obtained from above the apices of the lungs to the lung bases. Please note that all CT scans at this facility use dose modulation, iterative reconstruction, and/or weight-based dosing when appropriate to reduce radiation dose to as low as reasonably achievable. FINDINGS: : HEART and MEDIASTINUM: The heart size is normal. There is no mediastinal or hilar adenopathy or mass. There is no pericardial effusion.The heart size is top normal. The right heart is somewhat prominent but there is no leftward septal shaft to suggest right heart strain. No mediastinal or hilar adenopathy or mass PULMONARY ARTERIAL CIRCULATION: Extensive embolization of the right lower lobe pulmonary arterial system. No definite embolus elsewhere LUNGS: Minimal atelectasis at the left base. Wedge-shaped consolidation at the right costophrenic angle consistent with a pulmonary infarct. PLEURAL SPACES: Trace right effusion VISUALIZED UPPER ABDOMEN: Hepatic steatosis OSSEOUS STRUCTURES: Age-appropriate appearance. No acute fracture or destructive process. TUBES and LINES: None. IMPRESSION: Extensive pulmonary embolus of the right lower lobe with associated pulmonary infarct at of the lateral basal and posterior basal segments. Small right effusion. No definite right heart strain. No definite embolization except to the right lower lobe. I discussed the above findings with Milvia Mendoza at 7:15 p.m. on April 02, [address] all [address] scans at this facility use dose modulation, iterative reconstruction, and/or weight-based dosing when appropriate to reduce radiation dose to as low as reasonably achievable. Dictated by Brent Jones MD @ Apr 02 2020 7:03PM Signed by Dr. Brent Jones @ Apr 02 2020 7:17PM
[2020-04-02 21:52] VITALS: BP 159/102; PULSE 103
== END 2020-04-02 20:00 | disposition home or self-care (01) ==
LOC: MW.ED 13:42
DX: I26.99 Other pulmonary embolism without acute cor pulmonale (principal); Z79.01 Long term (current) use of anticoagulants
CPT/HCPCS: 36415; 71046; 71275; 80053; 81001; 81025; 85025; 85379; 85652; 86140; 93005; 99284; Q9967

== ENCOUNTER 2020-11-07 08:59 | Day surgery (SDC) | payer MEDICAID ==
[~2020-11-07 08:59] MED LIST: Lactated Ringers 1,000 ML IV SCH; Sodium Chloride 0.9% 10 ML SDV IV PRN; Sodium Chloride 0.9% 10 ML Syringe FLUSH PRN; Sodium Chloride 0.9% 2.5 ML Syringe FLUSH PRN
--- NOTE | 2020-11-07 09:44 | PCM.PREANE ---
Preanesthetic Assessment - Anesthesia/Transfusion/Family Hx Anesthesia History: No Prior Anesthesia Family History of Anesthesia Reaction: No Transfusion History: No Prior Transfusion(s) Intubation History: Unknown - Review of Systems General: No Symptoms Pulmonary: No Symptoms Cardiovascular: No Symptoms Gastrointestinal: No Symptoms Neurological: No Symptoms Other: Reports: None - Physical Assessment Vital Signs: Last Vital Signs Temp 36.1 C 11/07/20 09:30 Pulse 116 H 11/07/20 09:30 Resp 16 11/07/20 09:30 BP 115/75 11/07/20 09:30 Pulse Ox 99 11/07/20 09:30 Height: 5 ft 4 in Weight: 73.028 kg ASA Class: 2 Mental Status: Alert & Oriented x3 Airway Class: Mallampati = 2 Dentition: Reports: Normal Dentition Thyro-Mental Finger Breadths: 3 Mouth Opening Finger Breadths: 3 ROM/Head Extension: Full Lungs: Clear to Auscultation, Normal Respiratory Effort Cardiovascular: Regular Rate, Regular Rhythm - Allergies Allergies/Adverse Reactions: Allergies Allergy/AdvReac Type Severity Reaction Status Date / Time No Known Allergies Allergy Verified 11/07/20 09:29 - Blood Blood Available: No - Anesthesia Plan Pre-Op Medication Ordered: None - Acknowledgements Anesthesia Type Planned: Spinal Pt an Appropriate Candidate for the Planned Anesthesia: Yes Alternatives and Risks of Anesthesia Discussed w Pt/Guardian: Yes Pt/Guardian Understands and Agrees with Anesthesia Plan: Yes PreAnesthesia Questionnaire - Past Health History Medical/Surgical History: Denies Medical/Surgical History HEENT History: Reports: None Cardiovascular History: Reports: Hypertension, Other (See Below) (cardiomegaly on CXR) Respiratory History: Reports: PE Other Respiratory History: 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) Musculoskeletal History: Reports: None Neurological History: Reports: None Psychiatric History: Reports: None Endocrine/Metabolic History: Reports: None Hematologic History: Reports: Anticoagulation Therapy Immunologic History: Reports: None Oncologic (Cancer) History: Reports: None Dermatologic History: Reports: None - Infectious Disease History Infectious Disease History: Reports: None - Past Surgical History Head Surgeries/Procedures: Reports: None HEENT Surgical History: Reports: None Cardiovascular Surgical History: Reports: None Respiratory Surgical History: Reports: None GI Surgical History: Reports: None Female Surgical History: Reports: None Endocrine Surgical History: Reports: None Neurological Surgical History: Reports: None Musculoskeletal Surgical History: Reports: None Oncologic Surgical History: Reports: None Dermatological Surgical History: Reports: None - SUBSTANCE USE Tobacco Use Status *Q: Never Tobacco User - HOME MEDS Home Medications: Home Meds Enoxaparin Sodium [Lovenox] 1 injection SUBCUT DAILY 11/01/20 [History] Pnv No.95/Ferrous Fum/Folic AC [ Vitamin Tablet] 1 tab PO DAILY 11/01/20 [History] - CURRENT (IN HOUSE) MEDS Current Meds: Current Medications Lactated Ringer's (Ringers, Lactated) 1,000 mls @ 125 mls/hr IV ASDIRECTED [facility]E Last Admin: 11/07/20 09:34 Dose: 125 mls/hr Documented by: Sodium Chloride (Saline Flush) 10 ml FLUSH ASDIRECTED PRN PRN Reason: Keep Vein Open Sodium Chloride (Saline Flush) 2.5 ml FLUSH ASDIRECTED PRN PRN Reason: Keep Vein Open Sodium Chloride (Normal Saline) 10 ml IV ASDIRECTED PRN PRN Reason: IV Use
[2020-11-07] MEDS ORDERED: Ondansetron 4 MG/2 ML SDV ONE (10:41)
--- NOTE | 2020-11-07 11:06 | PCM.OPNOTE ---
- General Post-Op/Procedure Note Date of Surgery/Procedure: 11/07/20 Operative Procedure(s): Woodson Cereclage Pre Op Diagnosis: Twin Short Cerviex. Post-Op Diagnosis: Same Anesthesia Technique: Spinal Primary Surgeon: Derick Loja EBL in mLs: 50 Complications: None Condition: Good
--- NOTE | 2020-11-07 11:07 | PCM.DCSUM1 ---
Discharge Summary - Hospital Course Diagnosis: Stroke: No - Discharge Data Discharge Date: 11/07/20 Discharge Disposition: Home, Self-Care 01 Condition: Good - Referral to Home Health Primary Care Physician: Juventino Westfall MD - Patient Summary/Data Operative Procedure(s) Performed: Woodson Cereclage - Patient Instructions Diet: Usual Diet as Tolerated - Discharge Plan Home Medications: Home Meds Enoxaparin Sodium [Lovenox] 1 injection SUBCUT DAILY 11/01/20 [History] Pnv No.95/Ferrous Fum/Folic AC [ Vitamin Tablet] 1 tab PO DAILY 11/01/20 [History] - Discharge Summary/Plan Comment DC Time >30 min.: Yes - General Info Date of Service: 11/07/20 Functional Status: Reports: Pain Controlled - Review of Systems General: Reports: No Symptoms HEENT: Reports: No Symptoms Pulmonary: Reports: No Symptoms Cardiovascular: Reports: No Symptoms Gastrointestinal: Reports: No Symptoms Genitourinary: Reports: No Symptoms Musculoskeletal: Reports: No Symptoms Skin: Reports: No Symptoms Neurological: Reports: No Symptoms Psychiatric: Reports: No Symptoms - Patient Data Vitals - Most Recent: Last Vital Signs Temp 36.2 C 11/07/20 10:58 Pulse 93 11/07/20 11:03 Resp 22 H 11/07/20 11:03 BP 101/60 11/07/20 11:03 Pulse Ox 100 11/07/20 11:03 Weight - Most Recent: 73.028 kg Med Orders - Current: Current Medications Lactated Ringer's (Ringers, Lactated) 1,000 mls @ 125 mls/hr IV ASDIRECTED [facility] Last Admin: 11/07/20 09:34 Dose: 125 mls/hr Documented by: Sodium Chloride (Saline Flush) 10 ml FLUSH ASDIRECTED PRN PRN Reason: Keep Vein Open Sodium Chloride (Saline Flush) 2.5 ml FLUSH ASDIRECTED PRN PRN Reason: Keep Vein Open Sodium Chloride (Normal Saline) 10 ml IV ASDIRECTED PRN PRN Reason: IV Use Discontinued Medications Ondansetron HCl (Zofran) Confirm Administered Dose 4 mg .ROUTE .STK-MED ONE Stop: 11/07/20 10:42 - Exam General: Reports: Alert, Oriented HEENT: Reports: Pupils Equal, Pupils Reactive, EOMI, Mucous Membr. Moist/[place] Neck: Reports: Supple Lungs: Reports: Clear to Auscultation, Normal Respiratory Effort Cardiovascular: Reports: Regular Rate, Regular Rhythm GI/Abdominal Exam: Normal Bowel Sounds, Soft, Non-Tender, No Organomegaly, No Distention, No Abnormal Bruit, No Mass, Pelvis Stable (Female) Exam: Normal External Exam, Normal Speculum Exam, Normal Bimanual Exam Rectal (Female) Exam: Normal Exam, Normal Rectal Tone Back Exam: Reports: Normal Inspection, Full Range of Motion Extremities: Normal Inspection, Normal Range of Motion, Non-Tender, No Pedal Edema, Normal Capillary Refill Skin: Reports: Warm, Dry, Intact Wound/Incisions: Reports: Healing Well Neurological: Reports: No New Focal Deficit Psy/Mental Status: Reports: Alert, Normal Affect, Normal Mood
--- NOTE | 2020-11-07 11:21 | PCM.POSTAN ---
POST ANESTHESIA ASSESSMENT - MENTAL STATUS Mental Status: Alert, Oriented - VITAL SIGNS Vital Signs: Last Vital Signs Temp 36.2 C 11/07/20 10:58 Pulse 101 H 11/07/20 11:14 Resp 25 H 11/07/20 11:14 BP 109/65 11/07/20 11:14 Pulse Ox 100 11/07/20 11:14 - RESPIRATORY Respiratory Status: Respiratory Rate WNL, Airway Patent, O2 Saturation Stable - CARDIOVASCULAR CV Status: Pulse Rate WNL, Blood Pressure Stable - GASTROINTESTINAL GI Status: No Symptoms - PAIN Pain Score: 0 - POST OP HYDRATION Hydration Status: Adequate & Stable - OBSERVATIONS Free Text/Narrative:: The patient has no complaints at this time. There were no apparent anesthetic complications at this time. Discharge from phase one per criteria.
--- NOTE | 2020-11-07 13:31 | OR ---
SURGEON: Derick Loja MD DATE OF PROCEDURE: 11/07/2020 PREOPERATIVE DIAGNOSES: Intrauterine , twin, 24 weeks, short cervix with funneling of the amniotic fluid. POSTOPERATIVE DIAGNOSES: Intrauterine , twin, 24 weeks, short cervix with funneling of the amniotic fluid. OPERATION PERFORMED: Woodson cerclage. PRIMARY SURGEON: Derick Loja MD. POLICEMAN: OR tech. ANESTHESIA: Spinal, Chava Pisano and Dr. Rudd. ESTIMATED BLOOD LOSS: Less than 50 mL. COMPLICATIONS: None. INDICATION FOR SURGERY: This patient is with twins. She is 24 weeks. During her anatomy ultrasound she was found to have a short cervix, measuring 1.8 to 1.9 with mild funneling of the amniotic fluid. The patient is at high risk for premature labor because of twin , and because of the short cervix and funneling, and after discussion with the patient explaining her options, she elected to have a Woodson cerclage. PROCEDURE IN DETAIL: The patient was brought to the OR, properly identified, and after adequate level of spinal anesthesia, straight catheter was used to empty the bladder and the patient was prepped and draped in sterile fashion as usual. Weighted speculum placed in the vagina. Two ring forceps applied to the anterior and posterior wall of the cervix, side retractor was used and then using Mersilene band a circular incision around the top of the cervix was done and tied with due amount of tension without strangulating the cervix. The patient tolerated the procedure well, and the instrument and sponge count was correct. The patient went to recovery room in stable general condition. BOONE / EB /[id number]
[2020-11-07] MEDS ORDERED: NIFEdipine 30 MG Tab.ER PO ONE (13:49)
--- NOTE | 2020-11-07 14:15 | PCM48HPAN ---
Post Anesthesia Note - EVALUATION WITHIN 48HRS OF ANESTHETIC Vital Signs in Normal Range: Yes Patient Participated in Evaluation: Yes Respiratory Function Stable: Yes Airway Patent: Yes Cardiovascular Function Stable: Yes Hydration Status Stable: Yes Pain Control Satisfactory: Yes Nausea and Vomiting Control Satisfactory: Yes Mental Status Recovered: Yes Vital Signs: Last Vital Signs Temp 36.2 C 11/07/20 10:58 Pulse 101 H 11/07/20 11:14 Resp 25 H 11/07/20 11:14 BP 112/64 11/07/20 14:02 Pulse Ox 100 11/07/20 11:14 - COMMENTS/OBSERVATIONS Free Text/Narrative:: The patient has no complaints other than "cramping" which is controlled by the medications. She wants to go home. There were no apparent anesthetic complications at this time. Discharge per criteria.
[2020-11-07 14:30] VITALS: BP 105/57; PULSE 97
== END 2020-11-07 14:35 | disposition home or self-care (01) ==
LOC: MW.SDS 08:59
PROVIDERS: ATTEND Obstetrics & Gynecology
DX: O26.872 Cervical shortening, second trimester (principal); I10 Essential (primary) hypertension; Z3A.24 24 weeks gestation of pregnancy; Z79.899 Other long term (current) drug therapy
CPT/HCPCS: 59320; A9270; J2405; J7120; 00948

== ENCOUNTER 2021-01-24 04:59 | Inpatient (IN) | payer MEDICAID ==
[2021-01-24] MEDS ORDERED: Lidocaine 1% 50 ML MDV INJECT PRN (05:34)
[2021-01-24] MEDS ORDERED: Sodium Chloride 0.9% 10 ML Syringe FLUSH PRN (05:34)
[2021-01-24] MEDS ORDERED: Misoprostol 200 MCG Tab PO PRN (05:34)
[2021-01-24] MEDS ORDERED: Sodium Chloride 0.9% 10 ML SDV IV PRN (05:34)
[2021-01-24] MEDS ORDERED: Ondansetron 4 MG/2 ML SDV IVPUSH PRN (05:34)
[2021-01-24] MEDS ORDERED: Butorphanol 1 MG/ML SDV IVPUSH PRN (05:34)
[2021-01-24] MEDS ORDERED: Sodium Chloride 0.9% 2.5 ML Syringe FLUSH PRN (05:34)
[2021-01-24] MEDS ORDERED: Nalbuphine 10 MG/1 ML Vial IVPUSH PRN (05:34)
[2021-01-24] MEDS ORDERED: Tranexamic Acid 1,000 MG in Sodium Chloride 0.9% 100 ML IV PRN (05:34)
[2021-01-24] MEDS ORDERED: Methylergonovine 0.2 MG/1 ML Amp IM PRN (05:34)
[2021-01-24] MEDS ORDERED: Water For Irrigation,Sterile 1,000 ML Container IRR PRN (05:34)
[2021-01-24] MEDS ORDERED: Carboprost Tromethamine 250 MCG/1 ML Amp IM PRN (05:34)
[2021-01-24] MEDS ORDERED: Oxytocin/0.9 % Sodium Chloride 30 UNIT/500 ML BAG IV SCH ×2 (05:45→10:45)
[2021-01-24] MEDS: Lactated Ringers 1,000 ML IV SCH ×3 (07:40→08:37)
--- NOTE | 2021-01-24 07:46 | PCM.LDHP ---
L&D History of Present Illness - General Date of Service: 01/24/21 Admit Problem/Dx: Patient Status Order with Admit Dx/Problem 01/24/21 05:34 Patient Status [ADT] Routine Admission Diagnosis/Problem Admission Diagnosis/Problem Twin 01/24/21 07:36 with dichorionic/diamniotic twin at 36 weeks ([place]: 02/21/21 by LMP and early ultrasound) presenting to L&D for removal of cerclage under epidural anesthesia. Cerclage placed on 11/07/20 due to short cervix (1.18cm) with funneling of membranes into cervical canal. She has been followed in our clinic, primarily by Dr. Loja. She has diet controlled gestational diabetes. For the last month, she has had weekly BPP with NST. A+, Rubella immune, GBS negative. Most recent BPP on 01/22/21 noted 8/8 scoring for both twins. She was instructed to discontinue Lovenox 24 hrs prior to presenting to L&D for procedure. Source of Information: Patient History Limitations: Reports: No Limitations - Related Data Allergies/Adverse Reactions: Allergies Allergy/AdvReac Type Severity Reaction Status Date / Time No Known Allergies Allergy Verified 01/23/21 11:06 Home Medications: Home Meds Enoxaparin Sodium [Lovenox] 1 injection SUBCUT BEDTIME 11/01/20 [History] Pnv No.95/Ferrous Fum/Folic AC [ Vitamin Tablet] 1 tab PO BEDTIME 11/01/20 [History] Past Medical History - Past Health History Medical/Surgical History: Denies Medical/Surgical History HEENT History: Reports: None Cardiovascular History: Reports: Hypertension, Other (See Below) (cardiomegaly on CXR) Respiratory History: Reports: PE Other Respiratory History: 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) Musculoskeletal History: Reports: None Neurological History: Reports: None Psychiatric History: Reports: None Endocrine/Metabolic History: Reports: None Hematologic History: Reports: Anticoagulation Therapy Immunologic History: Reports: None Oncologic (Cancer) History: Reports: None Dermatologic History: Reports: None - Infectious Disease History Infectious Disease History: Reports: None - Past Surgical History Head Surgeries/Procedures: Reports: None HEENT Surgical History: Reports: None Cardiovascular Surgical History: Reports: None Respiratory Surgical History: Reports: None GI Surgical History: Reports: None Female Surgical History: Reports: None Endocrine Surgical History: Reports: None Neurological Surgical History: Reports: None Musculoskeletal Surgical History: Reports: None Oncologic Surgical History: Reports: None Dermatological Surgical History: Reports: None Social & Family History - Family History Family Medical History: No Pertinent Family History - Caffeine Use Caffeine Use: Reports: Soda H&P Review of Systems - Review of Systems: Review Of Systems: See Below General: Reports: No Symptoms HEENT: Reports: No Symptoms Pulmonary: Reports: No Symptoms Cardiovascular: Reports: No Symptoms Gastrointestinal: Reports: No Symptoms Genitourinary: Reports: No Symptoms Musculoskeletal: Reports: No Symptoms Skin: Reports: No Symptoms Psychiatric: Reports: No Symptoms Neurological: Reports: No Symptoms Hematologic/Lymphatic: Reports: No Symptoms Immunologic: Reports: No Symptoms L&D Exam - Exam Exam: See Below - Vital Signs Weight: 160 lb 6.4 oz - OB Specific Movement: Active Heart Tones: Present - Exam General: Alert, Oriented, Cooperative Lungs: Normal Respiratory Effort Cardiovascular: Regular Rate, Regular Rhythm GI/Abdominal Exam: Soft, Non-Tender Rectal Exam: Deferred Genitourinary: Deferred Back Exam: Normal Inspection, Full Range of Motion Extremities: Normal Inspection, Normal Range of Motion, Non-Tender, Normal Capillary Refill Skin: Warm, Dry, Intact Neurological: Strength Equal Bilateral, Normal Speech, Normal Tone, Sensation Intact Psychiatric: Alert, Normal Affect, Normal Mood - Patient Data Lab Results Last 24 hrs: Laboratory Results - last 24 hr 01/24/21 01/24/21 Range/Units 06:00 06:00 WBC 6.79 (4.0-11.0) K/uL RBC 3.75 L (4.30-5.90) M/uL Hgb 10.0 L (12.0-16.0) g/dL Hct 32.0 L (36.0-46.0) % MCV 85.3 (80.0-98.0) fL MCH 26.7 L (27.0-32.0) pg MCHC 31.3 (31.0-37.0) g/dL RDW Std Deviation 48.6 (28.0-62.0) fl RDW Coeff of Conchita 16 H (11.0-15.0) % Plt Count 192 (150-400) K/uL MPV 12.10 H (7.40-12.00) fL Nucleated RBC % 1.5 /100WBC Nucleated RBCs # 0 K/uL Blood Type A POSITIVE Antibody Screen NEGATIVE Result Diagrams: 01/24/21 06:00 - Problem List (1) Twin , dichorionic/diamniotic, third trimester SNOMED Code(s): 243766771 ICD Code: O30.043 - TWIN , DICHORIONIC/DIAMNIOTIC, THIRD TRIMESTER Status: Acute Priority: High Current Visit: Yes (2) Cervical cerclage suture present SNOMED Code(s): 53516402 ICD Code: O34.30 - MATERNAL CARE FOR CERVICAL INCOMPETENCE, UNSP TRIMESTER Status: Acute Priority: High Current Visit: Yes Qualifiers: Trimester: third trimester Qualified Code(s): O34.33 - Maternal care for cervical incompetence, third trimester Problem List Initiated/Reviewed/Updated: Yes Orders Last 24hrs: Active Orders 24 hr Category Date Time Status Patient Status [ADT] Routine ADT 01/24/21 05:34 Active Heart Tones [RC] CONTINUOUS Care 01/24/21 05:34 Active Non Stress Test [RC] PER UNIT ROUTINE Care 01/24/21 05:34 Active May Shower [RC] ASDIRECTED Care 01/24/21 05:34 Active Notify Provider [RC] PRN Care 01/24/21 05:34 Active Up ad Jina [RC] ASDIRECTED Care 01/24/21 05:34 Active Vaginal Exam [RC] PRN Care 01/24/21 05:34 Active Vital Signs [RC] PER UNIT ROUTINE Care 01/24/21 05:34 Active RPR (SYPHILIS SERO) W/ RFLX [REF] Routine Lab 01/24/21 06:00 Received Butorphanol [Stadol] Med 01/24/21 05:34 Active 1 mg IVPUSH Q1H PRN Carboprost Tromethamine [Hemabate DS] Med 01/24/21 05:34 Active 250 mcg IM ASDIRECTED PRN Lactated Ringers [Ringers, Lactated] 1,000 ml Med 01/24/21 05:45 Active IV ASDIRECTED Lidocaine 1% [Xylocaine 1%] Med 01/24/21 05:34 Active 50 ml INJECT ONETIME PRN Methylergonovine [Methergine] Med 01/24/21 05:34 Active 0.2 mg IM ASDIRECTED PRN Nalbuphine [Nubain] Med 01/24/21 05:34 Active 10 mg IVPUSH Q1H PRN Ondansetron [Zofran] Med 01/24/21 05:34 Active 4 mg IVPUSH Q6H PRN Oxytocin/0.9 % Sodium Chloride [Oxytocin 30 Unit/500 ML Med 01/24/21 05:45 Active -NS] 30 unit in 500 ml IV TITRATE Sodium Chloride 0.9% [Normal Saline] Med 01/24/21 05:34 Active 10 ml IV ASDIRECTED PRN Sodium Chloride 0.9% [Saline Flush] Med 01/24/21 05:34 Active 10 ml FLUSH ASDIRECTED PRN Sodium Chloride 0.9% [Saline Flush] Med 01/24/21 05:34 Active 2.5 ml FLUSH ASDIRECTED PRN Tranexamic Acid [Cyklokapron] 1,000 mg Med 01/24/21 05:34 Active Sodium Chloride 0.9% [Normal Saline] 100 ml IV ONETIME Water For Irrigation,Sterile [Sterile Water for Med 01/24/21 05:34 Active Irrigation] 1,000 ml IRR ASDIRECTED PRN miSOPROStoL [Cytotec] Med 01/24/21 05:34 Active 200 mcg PO ONETIME PRN Scalp Electrode [WOMSER] Per Unit Routine Oth 01/24/21 05:34 Ordered Peripheral IV Insertion Adult [OM.PC] Routine Oth 01/24/21 05:34 Ordered Resuscitation Status Routine Resus Stat 01/24/21 05:34 Ordered Medication Orders Butorphanol Tartrate (Stadol) 1 mg IVPUSH Q1H PRN PRN Reason: Pain Carboprost Tromethamine (Hemabate Ds) 250 mcg IM ASDIRECTED PRN PRN Reason: Post Hemorrhage Oxytocin/Sodium Chloride (Oxytocin 30 Unit/500 Ml-Ns) 30 unit in 500 mls @ 500 mls/hr IV TITRATE MAE Tranexamic Acid 1,000 mg/ (Sodium Chloride) 110 mls @ 660 mls/hr IV ONETIME PRN PRN Reason: Bleeding Lactated Ringer's (Ringers, Lactated) 1,000 mls @ 150 mls/hr IV ASDIRECTED MAE Lidocaine HCl (Xylocaine 1%) 50 ml INJECT ONETIME PRN PRN Reason: Laceration repair Methylergonovine Maleate (Methergine) 0.2 mg IM ASDIRECTED PRN PRN Reason: Post Hemorrhage Misoprostol (Cytotec) 200 mcg PO ONETIME PRN PRN Reason: Post Hemorrhage Nalbuphine HCl (Nubain) 10 mg IVPUSH Q1H PRN PRN Reason: Pain (severe 7-10) Ondansetron HCl (Zofran) 4 mg IVPUSH Q6H PRN PRN Reason: Nausea/Vomiting Sodium Chloride (Saline Flush) 10 ml FLUSH ASDIRECTED PRN PRN Reason: Keep Vein Open Sodium Chloride (Saline Flush) 2.5 ml FLUSH ASDIRECTED PRN PRN Reason: Keep Vein Open Sodium Chloride (Normal Saline) 10 ml IV ASDIRECTED PRN PRN Reason: IV Use Sterile Water (Sterile Water For Irrigation) 1,000 ml IRR ASDIRECTED PRN PRN Reason: delivery Assessment/Plan Comment:: Admit A: with dichorionic/diamniotic twin at 36 weeks ([place]: 02/21/21 by LMP and early ultrasound) presenting to L&D for removal of cerclage under epidural anesthesia. Cerclage placed on 11/07/20 due to short cervix (1.18cm) with funneling of membranes into cervical canal. She has been followed in our clinic, primarily by Dr. Loja. She has diet controlled gestational diabetes. For the last month, she has had weekly BPP with NST. A+, Rubella immune, GBS negative. Most recent BPP on 01/22/21 noted 8/8 scoring for both twins. She was instructed to discontinue Lovenox 24 hrs prior to presenting to L&D for procedure. P: Plan for removal of cervical cerclage by Dr. Loja under epidural anesthesia. Anticipate .
[2021-01-24] MEDS ORDERED: fentaNYL 100 MCG/2 ML SDV ONE (07:53)
[2021-01-24] MEDS ORDERED: Ropivacaine HCl/PF 100 ML ONE (07:53)
--- NOTE | 2021-01-24 08:24 | PCM.PREANE ---
Preanesthetic Assessment - Anesthesia/Transfusion/Family Hx Anesthesia History: Prior Anesthesia Without Reaction Family History of Anesthesia Reaction: No Transfusion History: No Prior Transfusion(s) Intubation History: Unknown - Review of Systems General: No Symptoms Pulmonary: Other (HX PE. Patient was on Lovenox. This was stopped 01/22/21) - Physical Assessment NPO Status Date: 01/24/21 NPO Status Time: 00:05 Height: 1.6 m Weight: 72.756 kg ASA Class: 2 - Lab Values: Laboratory Last Values WBC 6.79 K/uL (4.0-11.0) 01/24/21 06:00 RBC 3.75 M/uL (4.30-5.90) L 01/24/21 06:00 Hgb 10.0 g/dL (12.0-16.0) L 01/24/21 06:00 Hct 32.0 % (36.0-46.0) L 01/24/21 06:00 MCV 85.3 fL (80.0-98.0) 01/24/21 06:00 MCH 26.7 pg (27.0-32.0) L 01/24/21 06:00 MCHC 31.3 g/dL (31.0-37.0) 01/24/21 06:00 RDW Std Deviation 48.6 fl (28.0-62.0) 01/24/21 06:00 RDW Coeff of Conchita 16 % (11.0-15.0) H 01/24/21 06:00 Plt Count 192 K/uL (150-400) 01/24/21 06:00 MPV 12.10 fL (7.40-12.00) H 01/24/21 06:00 Nucleated RBC % 1.5 /100WBC 01/24/21 06:00 Nucleated RBCs # 0 K/uL 01/24/21 06:00 Blood Type A POSITIVE 01/24/21 06:00 Antibody Screen NEGATIVE 01/24/21 06:00 - Allergies Allergies/Adverse Reactions: Allergies Allergy/AdvReac Type Severity Reaction Status Date / Time No Known Allergies Allergy Verified 01/23/21 11:06 - Acknowledgements Anesthesia Type Planned: Epidural Pt an Appropriate Candidate for the Planned Anesthesia: Yes Alternatives and Risks of Anesthesia Discussed w Pt/Guardian: Yes Pt/Guardian Understands and Agrees with Anesthesia Plan: Yes PreAnesthesia Questionnaire - Past Health History Medical/Surgical History: Denies Medical/Surgical History HEENT History: Reports: None Cardiovascular History: Reports: Hypertension, Other (See Below) (cardiomegaly on CXR) Respiratory History: Reports: PE Other Respiratory History: 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) Musculoskeletal History: Reports: None Neurological History: Reports: None Psychiatric History: Reports: None Endocrine/Metabolic History: Reports: None Hematologic History: Reports: Anticoagulation Therapy Immunologic History: Reports: None Oncologic (Cancer) History: Reports: None Dermatologic History: Reports: None - Infectious Disease History Infectious Disease History: Reports: None - Past Surgical History Head Surgeries/Procedures: Reports: None HEENT Surgical History: Reports: None Cardiovascular Surgical History: Reports: None Respiratory Surgical History: Reports: None GI Surgical History: Reports: None Female Surgical History: Reports: None Endocrine Surgical History: Reports: None Neurological Surgical History: Reports: None Musculoskeletal Surgical History: Reports: None Oncologic Surgical History: Reports: None Dermatological Surgical History: Reports: None - HOME MEDS Home Medications: Home Meds Enoxaparin Sodium [Lovenox] 1 injection SUBCUT BEDTIME 11/01/20 [History] Pnv No.95/Ferrous Fum/Folic AC [ Vitamin Tablet] 1 tab PO BEDTIME 11/01/20 [History] - CURRENT (IN HOUSE) MEDS Current Meds: Current Medications Butorphanol Tartrate (Stadol) 1 mg IVPUSH Q1H PRN PRN Reason: Pain Carboprost Tromethamine (Hemabate Ds) 250 mcg IM ASDIRECTED PRN PRN Reason: Post Hemorrhage Oxytocin/Sodium Chloride (Oxytocin 30 Unit/500 Ml-Ns) 30 unit in 500 mls @ 500 mls/hr IV TITRATE MAE Tranexamic Acid 1,000 mg/ (Sodium Chloride) 110 mls @ 660 mls/hr IV ONETIME PRN PRN Reason: Bleeding Lactated Ringer's (Ringers, Lactated) 1,000 mls @ 150 mls/hr IV ASDIRECTED [facility] Lidocaine HCl (Xylocaine 1%) 50 ml INJECT ONETIME PRN PRN Reason: Laceration repair Methylergonovine Maleate (Methergine) 0.2 mg IM ASDIRECTED PRN PRN Reason: Post Hemorrhage Misoprostol (Cytotec) 200 mcg PO ONETIME PRN PRN Reason: Post Hemorrhage Nalbuphine HCl (Nubain) 10 mg IVPUSH Q1H PRN PRN Reason: Pain (severe 7-10) Ondansetron HCl (Zofran) 4 mg IVPUSH Q6H PRN PRN Reason: Nausea/Vomiting Sodium Chloride (Saline Flush) 10 ml FLUSH ASDIRECTED PRN PRN Reason: Keep Vein Open Sodium Chloride (Saline Flush) 2.5 ml FLUSH ASDIRECTED PRN PRN Reason: Keep Vein Open Sodium Chloride (Normal Saline) 10 ml IV ASDIRECTED PRN PRN Reason: IV Use Sterile Water (Sterile Water For Irrigation) 1,000 ml IRR ASDIRECTED PRN PRN Reason: delivery Discontinued Medications Fentanyl (Sublimaze) Confirm Administered Dose 100 mcg .ROUTE .STK-MED ONE Stop: 01/24/21 07:54 Ropivacaine (Naropin 0.2%) Confirm Administered Dose 100 mls @ as directed .ROUTE .STK-MED ONE Stop: 01/24/21 07:54
--- NOTE | 2021-01-24 08:29 | PCM.PRNOTE ---
- Free Text/Narrative Note: Anes Note Patient requests epidural for L&D. Sitting Position, level L3-L4 midline approach. Sterile technique. Chloraprep scrub to lumbar area. Sterile fenestrated drape applied. Epidural space easily achieved single attempt with ease using ZAID technique. ZAID at 3 cm. Cath threaded 5 cm with ease. Cath secured at skin using sterile clear adhesive dressing. Test 0812 3 cc 1.5% lido with epi negative. 0815 LOad 10 cc 0.2% ropiviciane with 1 mcg cc fentanyl in slow divided doses. 020 Pumps started wtih 90 cc same solution. Rate is 8 cc hr with 6 cc q 20 min prn bolus. Kelly well. Time with amador [id number] Josue Emerson NET LEAD DEVELOPER
--- NOTE | 2021-01-24 10:07 | US ---
INDICATION: Check position of twins TECHNIQUE: Ultrasound OB pelvis transabdominal. Real-time waters-scale imaging of the fetus was performed without stress testing. COMPARISON: Biophysical profile January 22, 2021 FINDINGS: Sonographic imaging demonstrates a living twin gestation. Fetus a demonstrates a heart rate of 118 beats per minute. heart rate of fetus B is 139 beats per minute. Fetus a is cephalic and maternal right. Fetus B is maternal left and slightly anterior. IMPRESSION: Demonstration of live twin gestation with both fetuses in cephalic position as described above. Dictated by Olivier Vaughn MD @ Jan 24 2021 10:03AM Signed by Dr. Olivier Vaughn @ Jan 24 2021 10:05AM
--- NOTE | 2021-01-24 15:05 | US ---
INDICATION: Check position of twins TECHNIQUE: Ultrasound OB pelvis transabdominal. Real-time waters-scale imaging of the fetus was performed without stress testing. COMPARISON: Biophysical profile January 22, 2021 FINDINGS: Sonographic imaging demonstrates a living twin gestation. Fetus a demonstrates a heart rate of 118 beats per minute. heart rate of fetus B is 139 beats per minute. Fetus a is cephalic and maternal right. Fetus B is maternal left and slightly anterior. IMPRESSION: Demonstration of live twin gestation with both fetuses in cephalic position as described above. Dictated by Olivier Vaughn MD @ Jan 24 2021 10:03AM Signed by: Olivier Vaughn MD @01/24/2021 10:05:54 AM (Electronic Signature) [email or web address]
[2021-01-24] MEDS ORDERED: Lanolin 100% Cream 7 GM Tube TOP PRN (15:14)
[2021-01-24] MEDS ORDERED: Acetaminophen 500 MG Tab PO PRN (15:14)
[2021-01-24] MEDS ORDERED: Witch Hazel Medicated Pads 40/Jar TOP PRN (15:14)
[2021-01-24] MEDS ORDERED: Ibuprofen 400 MG Tab PO PRN (15:14)
[2021-01-24] MEDS ORDERED: oxyCODONE 5 MG Tab PO PRN (15:14)
[2021-01-24] MEDS ORDERED: Benzocaine/Menthol 20%-0.5% Spray 78 GM Cannister TOP PRN (15:14)
[2021-01-24] MEDS ORDERED: Docusate Sodium 100 MG Cap PO PRN (15:14)
[2021-01-24] MEDS ORDERED: Bisacodyl 10 MG Supp RECTAL PRN (15:14)
[2021-01-24] MEDS: Ibuprofen 800 MG Tab PO PRN (17:10)
--- NOTE | 2021-01-24 17:39 | PCM.DEL ---
L & D Note - General Info Date of Service: 01/24/21 Mother's Due Date: 02/21/21 - Delivery Note Labor: Augmented by ARM, Augmented by Oxytocin, Induced by ARM Delivery Outcome: Livebirth Infant Delivery Method: Spontaneous Vaginal Delivery-Twins Infant Delivery Mode: Spontaneous Presentation: Vertex (Baby A: GUILLE. Baby B: AMARILIS) Nuchal Cord: None (Baby B: no nuchal present), Present (Baby A: loose nuchal x1) Anesthesia Type: Epidural Amniotic Fluid Description: Clear Episiotomy Type: None Laceration: None Placenta: Intact, Spontaneous (Placenta x2 delivered Harper, intact, 3VC. ) Cord: 3 Vessels Estimated Blood Loss: 300 Resuscitation Needed: No Second Stage Interventions: Reports: Encouragement Given, Pushing Effectively, Pushing, Stirrups/Leg Supports, Other (see below) (Supine in OR, feet in leg supports) Delivery Comments (Free Text/Narrative):: Jami is a 30 yo at 36+0 weeks (MARLIN: 02/21/21 by LMP and early ultrasound) S/P of viable, pre-term twin di/di neonates S/P removal of cerclage with AROM (Baby A) at ~0850 epidural anesthesia. Adequate epidural analgesia. A pos, Ab neg, RI, GBS negative. setting in L&D OR with Dr. Loja, JAMSHID, OR staff, anesthesia staff, RT + lockstitch zipper setter on-call, Baby RN x2, maternal RN, radiology at bedside. Baby "A" confirmed vertex via TAUS and SVE prior to AROM and again immediately prior to . NBF "A" delivered GUILLE with body following closely with next push without complication, loose nuchal x1, somersaulted through. Warmed, dried, stimulated by RN with weak spontaneous cries. Umbilical cord clamped x 2, cut by CNM. NBF "A" brought to warmer for evaluation. Radiology at bedside to confirm vertex presentation of Baby "B". Gentle downward fundal pressure performed by Dr. Loja to guide Baby "B" into pelvis with cephalic presentation. AROM performed by CNVicky, clear moderate to large fluid. No prolapse of parts or umbilical cord noted by CNVicky and Dr. Loja via SVE. Baby "B" maintained vertex via TAUS and SVE. NBF "B" delivered AMARILIS with body following closely with next push without complication, no nuchal. Warmed, dried, stimulated by RN with weak spontaneous cries. Umbilical cord clamped x 2, cut by FOB. NBF "B" brought to warmer for evaluation. Pitoci n bolus commenced for active third stage management. Placenta x2 delivered intact, Meredith, 3VC. EBL 300. Uterus firm U+1, small rubra lochia, no clots. Perineum intact. Baby "A": Apgars: 8/9, Weight 5 lb 9 oz. Baby "B": Apgars: 7/9, Weight 5 lb 13 oz. Induction Criteria - Briggs Score Briggs Score Dilation: > 5 cm Briggs Score Effacement: >80% Briggs Score Infant's Station: -1 ,0 Briggs Score Consistency: Soft Briggs Score Cervix Position: Midposition Briggs Score Total: 11 Briggs Score Presenting Part: Reports: Cephalic - Induction Gestational Age >/= 39 wks: No Estimated Pelvis: Reports: Adequate - Augmentation Estimated Pelvis: Reports: Adequate Reassuring Monitoring Strip: Yes - General Info Date of Service: 01/24/21 Admission Dx/Problem (Free Text): Patient Status Order with Admit Dx/Problem 01/24/21 05:34 Patient Status [ADT] Routine Admission Diagnosis/Problem Admission Diagnosis/Problem Twin 01/24/21 07:36 with dichorionic/diamniotic twin at 36 weeks (MARLIN: 02/21/21 by LMP and early ultrasound) presenting to L&D for removal of cerclage under epidural anesthesia. Cerclage placed on 11/07/20 due to short cervix (1.18cm) with funneling of membranes into cervical canal. She has been followed in our clinic, primarily by Dr. Loja. She has diet controlled gestational diabetes. For the last month, she has had weekly BPP with NST. A+, Rubella immune, GBS negative. Most recent BPP on 01/22/21 noted 8/8 scoring for both twins. She was instructed to discontinue Lovenox 24 hrs prior to presenting to L&D for procedure. Functional Status: Reports: Pain Controlled - Review of Systems General: Reports: No Symptoms HEENT: Reports: No Symptoms Pulmonary: Reports: No Symptoms Cardiovascular: Reports: No Symptoms Gastrointestinal: Reports: No Symptoms Genitourinary: Reports: No Symptoms Musculoskeletal: Reports: No Symptoms Skin: Reports: No Symptoms Neurological: Reports: No Symptoms Psychiatric: Reports: No Symptoms - Patient Data Vitals - Most Recent: VSS, afebrile. See flowsheet. Weight - Most Recent: 160 lb 6.4 oz Lab Results Last 24 Hours: Laboratory Results - last 24 hr 01/24/21 01/24/21 Range/Units 06:00 06:00 WBC 6.79 (4.0-11.0) K/uL RBC 3.75 L (4.30-5.90) M/uL Hgb 10.0 L (12.0-16.0) g/dL Hct 32.0 L (36.0-46.0) % MCV 85.3 (80.0-98.0) fL MCH 26.7 L (27.0-32.0) pg MCHC 31.3 (31.0-37.0) g/dL RDW Std Deviation 48.6 (28.0-62.0) fl RDW Coeff of Conchita 16 H (11.0-15.0) % Plt Count 192 (150-400) K/uL MPV 12.10 H (7.40-12.00) fL Nucleated RBC % 1.5 /100WBC Nucleated RBCs # 0 K/uL Blood Type A POSITIVE Antibody Screen NEGATIVE Med Orders - Current: Current Medications Acetaminophen (Tylenol Extra Strength) 500 mg PO Q4H PRN PRN Reason: Pain Acetaminophen (Tylenol Extra Strength) 1,000 mg PO Q4H PRN PRN Reason: Pain Benzocaine/Menthol (Dermoplast Pain Relief 20%-0.5% [place]) 78 gm TOP ASDIRECTED PRN PRN Reason: Perineal Comfort Measure Bisacodyl (Dulcolax) 10 mg RECTAL ONETIME PRN PRN Reason: Constipation Docusate Sodium (Colace) 100 mg PO BID PRN PRN Reason: Constipation Emollient Ointment (Lansinoh Hpa) 0 gm TOP ASDIRECTED PRN PRN Reason: Sore Nipples Enoxaparin Sodium (Lovenox) 40 mg SUBCUT Q24H MAE Stop: 02/01/21 09:01 Ibuprofen (Motrin) 400 mg PO Q4H PRN PRN Reason: Pain Ibuprofen (Motrin) 800 mg PO Q6H PRN PRN Reason: Pain Last Admin: 01/24/21 17:10 Dose: 800 mg Documented by: Oxycodone HCl (Oxycodone) 5 mg PO Q2H PRN PRN Reason: Pain Polysaccharide Iron Complex (Ferrex 150) 150 mg PO DAILY [facility] Nilaykonstantin Tyler (Tucks) 1 pad TOP ASDIRECTED PRN PRN Reason: comfort care Discontinued Medications Butorphanol Tartrate (Stadol) 1 mg IVPUSH Q1H PRN PRN Reason: Pain Carboprost Tromethamine (Hemabate Ds) 250 mcg IM ASDIRECTED PRN PRN Reason: Post Hemorrhage Fentanyl (Sublimaze) Confirm Administered Dose 100 mcg .ROUTE .STK-MED ONE Stop: 01/24/21 07:54 Last Admin: 01/24/21 10:06 Dose: Not Given Documented by: Oxytocin/Sodium Chloride (Oxytocin 30 Unit/500 Ml-Ns) 30 unit in 500 mls @ 500 mls/hr IV TITRATE [facility] Tranexamic Acid 1,000 mg/ (Sodium Chloride) 110 mls @ 660 mls/hr IV ONETIME PRN PRN Reason: Bleeding Lactated Ringer's (Ringers, Lactated) 1,000 mls @ 150 mls/hr IV ASDIRECTED [facility] Last Admin: 01/24/21 08:37 Dose: 150 mls/hr Documented by: Ropivacaine (Naropin 0.2%) Confirm Administered Dose 100 mls @ as directed .ROU MIS .STK-MED ONE Stop: 01/24/21 07:54 Last Admin: 01/24/21 10:06 Dose: Not Given Documented by: Oxytocin/Sodium Chloride (Oxytocin 30 Unit/500 Ml-Ns) 30 unit in 500 mls @ 2 mls/hr IV TITRATE [facility]; Protocol Last Infusion: 01/24/21 13:35 Dose: 8 munits/min, 8 mls/hr Documented by: Lidocaine HCl (Xylocaine 1%) 50 ml INJECT ONETIME PRN PRN Reason: Laceration repair Methylergonovine Maleate (Methergine) 0.2 mg IM ASDIRECTED PRN PRN Reason: Post Hemorrhage Misoprostol (Cytotec) 200 mcg PO ONETIME PRN PRN Reason: Post Hemorrhage Nalbuphine HCl (Nubain) 10 mg IVPUSH Q1H PRN PRN Reason: Pain (severe 7-10) Ondansetron HCl (Zofran) 4 mg IVPUSH Q6H PRN PRN Reason: Nausea/Vomiting Sodium Chloride (Saline Flush) 10 ml FLUSH ASDIRECTED PRN PRN Reason: Keep Vein Open Sodium Chloride (Saline Flush) 2.5 ml FLUSH ASDIRECTED PRN PRN Reason: Keep Vein Open Sodium Chloride (Normal Saline) 10 ml IV ASDIRECTED PRN PRN Reason: IV Use Sterile Water (Sterile Water For Irrigation) 1,000 ml IRR ASDIRECTED PRN PRN Reason: delivery - Exam General: Alert, Oriented, Cooperative, No Acute Distress HEENT: Pupils Equal, Pupils Reactive Neck: Supple Lungs: Clear to Auscultation, Normal Respiratory Effort Cardiovascular: Regular Rate, Regular Rhythm GI/Abdominal Exam: Normal Bowel Sounds, Soft, Non-Tender, No Organomegaly, No Distention (Female) Exam: Normal External Exam Back Exam: Normal Inspection, Full Range of Motion Extremities: Normal Inspection, Normal Range of Motion, Non-Tender, No Pedal Edema, Normal Capillary Refill Skin: Warm, Dry, Intact Neurological: No New Focal Deficit (BLE epidural analgesia) Psy/Mental Status: Alert, Normal Affect, Normal Mood - Problem List & Annotations (1) Twin SNOMED Code(s): 89977980 Code(s): Z37.9 - OUTCOME OF DELIVERY, UNSPECIFIED Status: Acute Priority: High Current Visit: Yes (2) Dichorionic diamniotic twin gestation SNOMED Code(s): 913992091 Code(s): O30.049 - TWIN , DICHORIONIC/DIAMNIOTIC, UNSP TRIMESTER Status: Acute Priority: High Current Visit: Yes Qualifiers: Trimester: third trimester Qualified Code(s): O30.043 - Twin , dichorionic/diamniotic, third trimester (3) 36 weeks gestation of SNOMED Code(s): 43631905 Code(s): Z3A.36 - 36 WEEKS GESTATION OF Status: Acute Priority: High Current Visit: Yes - Problem List Review Problem List Initiated/Reviewed/Updated: Yes - My Orders Last 24 Hours: My Active Orders 01/24/21 15:14 Patient Status [ADT] Routine May Shower [RC] ASDIRECTED Up ad Jina [RC] ASDIRECTED Vital Signs [RC] PER UNIT ROUTINE Acetaminophen [Tylenol Extra Strength] 1,000 mg PO Q4H PRN Acetaminophen [Tylenol Extra Strength] 500 mg PO Q4H PRN Benzocaine/Menthol [Dermoplast Pain Relief 20%-0.5% [place]] 78 gm TOP ASDIRECTED PRN Docusate Sodium [Colace] 100 mg PO BID PRN Ibuprofen [Motrin] 400 mg PO Q4H PRN Ibuprofen [Motrin] 800 mg PO Q6H PRN Lanolin [Lansinoh HPA] See Dose Instructions TOP ASDIRECTED PRN bisacodyL [Dulcolax] 10 mg RECTAL ONETIME PRN oxyCODONE 5 mg PO Q2H PRN witch Lizzette [Tucks] 1 pad TOP ASDIRECTED PRN Assess Lochia [WOMSER] Per Unit Routine Assess Uterine Involution [WOMSER] Per Unit Routine Ice Therapy [OM.PC] Per Unit Routine Perineal Care [OM.PC] Per Unit Routine Peripheral IV Discontinue [OM.PC] Routine Sitz Bath [OM.PC] Per Unit Routine Resuscitation Status Routine 01/24/21 15:16 Cooling Warming Measures [RC] ASDIRECTED 01/24/21 Dinner Regular Diet [DIET] 01/25/21 05:11 HEMOGLOBIN/HEMATOCRIT,HH [HEME] Timed 01/25/21 09:00 Enoxaparin [Lovenox] 40 mg SUBCUT Q24H Iron Polysaccharides Complex [Ferrex 150] 150 mg PO DAILY - Plan Plan:: Admit to inpatient unit S/P of viable pre-term di/di twins (NBF x2) at 36+0 weeks gestation. D/C epidural now. May ambulate with assistance in 2-4 hours when desired. If patient has not voided within 6 hours , may I/O cath and notify provider. Start iron supplementation re: anemia in am. Start lovenox 40 mg subq in am to be administered q 24 hours x [address] Loja. Plan to monitor outpatient anticoagulant therapy with F/U in office 7 days . See new orders. Dr. Loja agreeable with POC.
[2021-01-24] MEDS: Acetaminophen 500 MG Tab PO PRN (20:48)
[2021-01-25] MEDS: Acetaminophen 500 MG Tab PO PRN (02:45)
[2021-01-25] MEDS: Iron Polysaccharides Complex 150 MG Cap PO SCH (09:18)
[2021-01-25] MEDS: Enoxaparin 40 MG/0.4 ML Syringe SUBCUT SCH (09:19)
[2021-01-25] MEDS: Ibuprofen 800 MG Tab PO PRN (09:24)
--- NOTE | 2021-01-25 10:16 | PCM48HPAN ---
Post Anesthesia Note - EVALUATION WITHIN 48HRS OF ANESTHETIC Vital Signs in Normal Range: Yes Patient Participated in Evaluation: Yes Respiratory Function Stable: Yes Airway Patent: Yes Cardiovascular Function Stable: Yes Hydration Status Stable: Yes Pain Control Satisfactory: Yes Nausea and Vomiting Control Satisfactory: Yes Mental Status Recovered: Yes Vital Signs: Last Vital Signs Temp 36.9 C 01/25/21 09:10 Pulse 80 01/25/21 09:10 Resp 20 01/25/21 09:10 BP 119/78 01/25/21 09:10 Pulse Ox 99 01/25/21 09:10
--- NOTE | 2021-01-25 10:32 | PCM.DCSUM1 ---
Discharge Summary - Hospital Course Free Text/Narrative:: Jami is a 30 yo s/p of viable, pre-term twin di/di neonates at 36+0 weeks ([place]LIN: 02/21/21 by LMP and early ultrasound) S/P removal of cerclage with AROM IOL. A pos, Ab neg, RI, GBS negative. Antibiotic prophylaxis not completed intrapartum. Patient denies any complaints or concerns at this time. VSS, afebrile. Bottle feeding, eating, hydrating, ambulating, and urinating independently and without issue. Uterus firm, U-2. Light to moderate rubra lochia, no clots. Mild to moderate uterine cramping somewhat relieved with ibuprofen. Patient expresses desire to be discharged home today. Hgb 9.3, continue iron supplementation daily x 4-12 weeks. D/C metformin now. warning S/Ss, when to call for help discussed. Patient has no questions or concerns at this time. - Discharge Data Discharge Disposition: Home, Self-Care 01 Condition: Good - Referral to Home Health Primary Care Physician: PCP None - Discharge Diagnosis/Problem(s) (1) Twin SNOMED Code(s): 56933176 ICD Code: Z37.9 - OUTCOME OF DELIVERY, UNSPECIFIED Status: Acute Priority: High Current Visit: Yes (2) Dichorionic diamniotic twin gestation SNOMED Code(s): 746330606 ICD Code: O30.049 - TWIN , DICHORIONIC/DIAMNIOTIC, UNSP TRIMESTER Status: Acute Priority: High Current Visit: Yes Qualifiers: Trimester: third trimester Qualified Code(s): O30.043 - Twin , dichorionic/diamniotic, third trimester (3) 36 weeks gestation of SNOMED Code(s): 66114095 ICD Code: Z3A.36 - 36 WEEKS GESTATION OF Status: Acute Priority: High Current Visit: Yes - Discharge Plan Home Medications: Home Meds Enoxaparin Sodium [Lovenox] 1 injection SUBCUT BEDTIME 11/01/20 [History] Pnv No.95/Ferrous Fum/Folic AC [ Vitamin Tablet] 1 tab PO BEDTIME 11/01/20 [History] - Patient Data Vitals - Most Recent: Last Vital Signs Temp 98.4 F 01/25/21 09:10 Pulse 80 01/25/21 09:10 Resp 20 01/25/21 09:10 BP 119/78 01/25/21 09:10 Pulse Ox 99 01/25/21 09:10 Weight - Most Recent: 160 lb 6.4 oz Lab Results - Last 24 hrs: Laboratory Results - last 24 hr 01/25/21 Range/Units 06:30 Hgb 9.3 L (12.0-16.0) g/dL Hct 29.4 L (36.0-46.0) % Med Orders - Current: Current Medications Acetaminophen (Tylenol Extra Strength) 500 mg PO Q4H PRN PRN Reason: Pain Acetaminophen (Tylenol Extra Strength) 1,000 mg PO Q4H PRN PRN Reason: Pain Last Admin: 01/25/21 02:45 Dose: 1,000 mg Documented by: Benzocaine/Menthol (Dermoplast Pain Relief 20%-0.5% [place]) 78 gm TOP ASDIRECTED PRN PRN Reason: Perineal Comfort Measure Bisacodyl (Dulcolax) 10 mg RECTAL ONETIME PRN PRN Reason: Constipation Docusate Sodium (Colace) 100 mg PO BID PRN PRN Reason: Constipation Emollient Ointment (Lansinoh Hpa) 0 gm TOP ASDIRECTED PRN PRN Reason: Sore Nipples Enoxaparin Sodium (Lovenox) 40 mg SUBCUT Q24H [facility] Stop: 02/01/21 09:01 Last Admin: 01/25/21 09:19 Dose: 40 mg Documented by: Ibuprofen (Motrin) 400 mg PO Q4H PRN PRN Reason: Pain Ibuprofen (Motrin) 800 mg PO Q6H PRN PRN Reason: Pain Last Admin: 01/25/21 09:24 Dose: 800 mg Documented by: Oxycodone HCl (Oxycodone) 5 mg PO Q2H PRN PRN Reason: Pain Polysaccharide Iron Complex (Ferrex 150) 150 mg PO DAILY [facility] Last Admin: 01/25/21 09:18 Dose: 150 mg Documented by: Mariel Moy) 1 pad TOP ASDIRECTED PRN PRN Reason: comfort care Discontinued Medications Butorphanol Tartrate (Stadol) 1 mg IVPUSH Q1H PRN PRN Reason: Pain Carboprost Tromethamine (Hemabate Ds) 250 mcg IM ASDIRECTED PRN PRN Reason: Post Hemorrhage Fentanyl (Sublimaze) Confirm Administered Dose 100 mcg .ROUTE .STK-[place] ONE Stop: 01/24/21 07:54 Last Admin: 01/24/21 10:06 Dose: Not Given Documented by: Oxytocin/Sodium Chloride (Oxytocin 30 Unit/500 Ml-Ns) 30 unit in 500 mls @ 500 mls/hr IV TITRATE MAE Tranexamic Acid 1,000 mg/ (Sodium Chloride) 110 mls @ 660 mls/hr IV ONETIME PRN PRN Reason: Bleeding Lactated Ringer's (Ringers, Lactated) 1,000 mls @ 150 mls/hr IV ASDIRECTED MAE Last Admin: 01/24/21 08:37 Dose: 150 mls/hr Documented by: Ropivacaine (Naropin 0.2%) Confirm Administered Dose 100 mls @ as directed .ROUTE .[employer] ONE Stop: 01/24/21 07:54 Last Admin: 01/24/21 10:06 Dose: Not Given Documented by: Oxytocin/Sodium Chloride (Oxytocin 30 Unit/500 Ml-Ns) 30 unit in 500 mls @ 2 mls/hr IV TITRATE MAE; Protocol Last Infusion: 01/24/21 13:35 Dose: 8 munits/min, 8 mls/hr Documented by: Lidocaine HCl (Xylocaine 1%) 50 ml INJECT ONETIME PRN PRN Reason: Laceration repair Methylergonovine Maleate (Methergine) 0.2 mg IM ASDIRECTED PRN PRN Reason: Post Hemorrhage Misoprostol (Cytotec) 200 mcg PO ONETIME PRN PRN Reason: Post Hemorrhage Nalbuphine HCl (Nubain) 10 mg IVPUSH Q1H PRN PRN Reason: Pain (severe 7-10) Ondansetron HCl (Zofran) 4 mg IVPUSH Q6H PRN PRN Reason: Nausea/Vomiting Sodium Chloride (Saline Flush) 10 ml FLUSH ASDIRECTED PRN PRN Reason: Keep Vein Open Sodium Chloride (Saline Flush) 2.5 ml FLUSH ASDIRECTED PRN PRN Reason: Keep Vein Open Sodium Chloride (Normal Saline) 10 ml IV ASDIRECTED PRN PRN Reason: IV Use Sterile Water (Sterile Water For Irrigation) 1,000 ml IRR ASDIRECTED PRN PRN Reason: delivery
--- NOTE | 2021-01-25 10:49 | PCM.PNPP ---
- General Info Date of Service: 01/25/21 Admission Dx/Problem (Free Text): Patient Status Order with Admit Dx/Problem 01/24/21 05:34 Patient Status [ADT] Routine Admission Diagnosis/Problem Admission Diagnosis/Problem Twin 01/24/21 07:36 Jami is a 30 yo s/p of viable, twin di/di neonates at 36+0 weeks (MARLIN(LMP) 02/21/21) S/P removal of cerclage with AROM IOL. A pos, Ab neg, RI, GBS negative. Antibiotic prophylaxis not completed intrapartum. Patient denies any complaints or concerns at this time. VSS, afebrile. Bottle feeding, eating, hydrating, ambulating, and urinating independently and without issue. Uterus firm, U-2. Light to moderate rubra lochia, no clots. Mild to moderate uterine cramping somewhat relieved with ibuprofen. Hx: h/o PE, A1GDM. Functional Status: Reports: Pain Controlled, Tolerating Diet, Ambulating, Urinating - Review of Systems General: Reports: No Symptoms HEENT: Reports: No Symptoms Pulmonary: Reports: No Symptoms Cardiovascular: Reports: No Symptoms Gastrointestinal: Reports: No Symptoms Genitourinary: Reports: No Symptoms Musculoskeletal: Reports: No Symptoms Skin: Reports: No Symptoms Neurological: Reports: No Symptoms Psychiatric: Reports: No Symptoms - General Info Date of Service: 01/25/21 - Patient Data Vital Signs - Most Recent: Last Vital Signs Temp 98.4 F 01/25/21 09:10 Pulse 80 01/25/21 09:10 Resp 20 01/25/21 09:10 BP 119/78 01/25/21 09:10 Pulse Ox 99 01/25/21 09:10 Weight - Most Recent: 160 lb 6.4 oz Lab Results - Last 24 Hours: Laboratory Results - last 24 hr 01/25/21 Range/Units 06:30 Hgb 9.3 L (12.0-16.0) g/dL Hct 29.4 L (36.0-46.0) % Med Orders - Current: Current Medications Acetaminophen (Tylenol Extra Strength) 500 mg PO Q4H PRN PRN Reason: Pain Acetaminophen (Tylenol Extra Strength) 1,000 mg PO Q4H PRN PRN Reason: Pain Last Admin: 01/25/21 02:45 Dose: 1,000 mg Documented by: Benzocaine/Menthol (Dermoplast Pain Relief 20%-0.5% [place]) 78 gm TOP ASDIRECTED PRN PRN Reason: Perineal Comfort Measure Bisacodyl (Dulcolax) 10 mg RECTAL ONETIME PRN PRN Reason: Constipation Docusate Sodium (Colace) 100 mg PO BID PRN PRN Reason: Constipation Emollient Ointment (Lansinoh Hpa) 0 gm TOP ASDIRECTED PRN PRN Reason: Sore Nipples Enoxaparin Sodium (Lovenox) 40 mg SUBCUT Q24H [facility] Stop: 02/01/21 09:01 Last Admin: 01/25/21 09:19 Dose: 40 mg Documented by: Ibuprofen (Motrin) 400 mg PO Q4H PRN PRN Reason: Pain Ibuprofen (Motrin) 800 mg PO Q6H PRN PRN Reason: Pain Last Admin: 01/25/21 09:24 Dose: 800 mg Documented by: Oxycodone HCl (Oxycodone) 5 mg PO Q2H PRN PRN Reason: Pain Polysaccharide Iron Complex (Ferrex 150) 150 mg PO DAILY [facility] Last Admin: 01/25/21 09:18 Dose: 150 mg Documented by: Mariel Moy) 1 pad TOP ASDIRECTED PRN PRN Reason: comfort care Discontinued Medications Butorphanol Tartrate (Stadol) 1 mg IVPUSH Q1H PRN PRN Reason: Pain Carboprost Tromethamine (Hemabate Ds) 250 mcg IM ASDIRECTED PRN PRN Reason: Post Hemorrhage Fentanyl (Sublimaze) Confirm Administered Dose 100 mcg .ROUTE .STK-MED ONE Stop: 01/24/21 07:54 Last Admin: 01/24/21 10:06 Dose: Not Given Documented by: Oxytocin/Sodium Chloride (Oxytocin 30 Unit/500 Ml-Ns) 30 unit in 500 mls @ 500 mls/hr IV TITRATE [facility] Tranexamic Acid 1,000 mg/ (Sodium Chloride) 110 mls @ 660 mls/hr IV ONETIME PRN PRN Reason: Bleeding Lactated Ringer's (Ringers, Lactated) 1,000 mls @ 150 mls/hr IV ASDIRECTED [facility] Last Admin: 01/24/21 08:37 Dose: 150 mls/hr Documented by: Ropivacaine (Naropin 0.2%) Confirm Administered Dose 100 mls @ as directed .ROUTE .STK-MED ONE Stop: 01/24/21 07:54 Last Admin: 01/24/21 10:06 Dose: Not Given Documented by: Oxytocin/Sodium Chloride (Oxytocin 30 Unit/500 Ml-Ns) 30 unit in 500 mls @ 2 mls/hr IV TITRATE [facility]; Protocol Last Infusion: 01/24/21 13:35 Dose: 8 munits/min, 8 mls/hr Documented by: Lidocaine HCl (Xylocaine 1%) 50 ml INJECT ONETIME PRN PRN Reason: Laceration repair Methylergonovine Maleate (Methergine) 0.2 mg IM ASDIRECTED PRN PRN Reason: Post Hemorrhage Misoprostol (Cytotec) 200 mcg PO ONETIME PRN PRN Reason: Post Hemorrhage Nalbuphine HCl (Nubain) 10 mg IVPUSH Q1H PRN PRN Reason: Pain (severe 7-10) Ondansetron HCl (Zofran) 4 mg IVPUSH Q6H PRN PRN Reason: Nausea/Vomiting Sodium Chloride (Saline Flush) 10 ml FLUSH ASDIRECTED PRN PRN Reason: Keep Vein Open Sodium Chloride (Saline Flush) 2.5 ml FLUSH ASDIRECTED PRN PRN Reason: Keep Vein Open Sodium Chloride (Normal Saline) 10 ml IV ASDIRECTED PRN PRN Reason: IV Use Sterile Water (Sterile Water For Irrigation) 1,000 ml IRR ASDIRECTED PRN PRN Reason: delivery - Infant Interaction Disposition, : at Bedside Interaction: Holding Feeding: Bottle Fed Infant Support Person: - Recovery Exam Fundal Tone: Firm Fundal Level: 2 Fingerbreadths Below Umbilicus Fundal Placement: Midline Lochia Amount: Small Lochia Color: Rubra/Red Perineum Description: Intact, Minimal Bruising/Swelling Episiotomy/Laceration: None Bladder Status: Voiding Urinary Elimination: Voided - Exam General: Alert, Oriented, Cooperative, No Acute Distress HEENT: Pupils Equal, Pupils Reactive, Mucous Membr. Moist/[place] Neck: Supple Lungs: Clear to Auscultation, Normal Respiratory Effort Cardiovascular: Regular Rate, Regular Rhythm GI/Abdominal Exam: Normal Bowel Sounds, Soft, Non-Tender, No Organomegaly, No Distention Extremities: Normal Inspection, Normal Range of Motion, Non-Tender, No Pedal Edema, Normal Capillary Refill Skin: Warm, Dry, Intact Neurological: No New Focal Deficit Psy/Mental Status: Alert, Normal Affect, Normal Mood - Problem List & Annotations (1) Twin SNOMED Code(s): 96300182 Code(s): Z37.9 - OUTCOME OF DELIVERY, UNSPECIFIED Status: Acute Priority: High Current Visit: Yes (2) Dichorionic diamniotic twin gestation SNOMED Code(s): 905100520 Code(s): O30.049 - TWIN , DICHORIONIC/DIAMNIOTIC, UNSP TRIMESTER Status: Acute Priority: High Current Visit: Yes Qualifiers: Trimester: third trimester Qualified Code(s): O30.043 - Twin , dichorionic/diamniotic, third trimester (3) 36 weeks gestation of SNOMED Code(s): 11856751 Code(s): Z3A.36 - 36 WEEKS GESTATION OF Status: Acute Priority: High Current Visit: Yes - Problem List Review Problem List Initiated/Reviewed/Updated: Yes - My Orders Last 24 Hours: My Active Orders 01/24/21 15:14 Patient Status [ADT] Routine May Shower [RC] ASDIRECTED Up ad Jina [RC] ASDIRECTED Vital Signs [RC] PER UNIT ROUTINE Acetaminophen [Tylenol Extra Strength] 1,000 mg PO Q4H PRN Acetaminophen [Tylenol Extra Strength] 500 mg PO Q4H PRN Benzocaine/Menthol [Dermoplast Pain Relief 20%-0.5% [place]] 78 gm TOP ASDIRECTED PRN Docusate Sodium [Colace] 100 mg PO BID PRN Ibuprofen [Motrin] 400 mg PO Q4H PRN Ibuprofen [Motrin] 800 mg PO Q6H PRN Lanolin [Lansinoh HPA] See Dose Instructions TOP ASDIRECTED PRN bisacodyL [Dulcolax] 10 mg RECTAL ONETIME PRN oxyCODONE 5 mg PO Q2H PRN witch Lizzette [Tucks] 1 pad TOP ASDIRECTED PRN Assess Lochia [WOMSER] Per Unit Routine Assess Uterine Involution [WOMSER] Per Unit Routine Ice Therapy [OM.PC] Per Unit Routine Perineal Care [OM.PC] Per Unit Routine Peripheral IV Discontinue [OM.PC] Routine Sitz Bath [OM.PC] Per Unit Routine Resuscitation Status Routine 01/24/21 Dinner Regular Diet [DIET] 01/25/21 09:00 Enoxaparin [Lovenox] 40 mg SUBCUT Q24H Iron Polysaccharides Complex [Ferrex 150] 150 mg PO DAILY - Plan Plan:: Continue inpatient unit S/P of viable pre-term di/di twins (NBF x2) at 36+0 weeks gestation. Continue ambulation 3-5 times daily. Continue independently eating, hydrating, voiding, and bottle feeding NBF x2. Hgb 9.3, continue daily iron supplementation daily x 4-12 weeks. Start lovenox 40 mg subq to be administered q 24 hours x [address] Loja. Plan to monitor outpatient anticoagulant therapy with F/U in office 7 days . See new orders. Dr. Loja agreeable with POC.
--- NOTE | 2021-01-26 08:29 | PCM.DCSUM1 ---
Discharge Summary - Hospital Course Free Text/Narrative:: Jami is a 30 yo PPD 2 s/p of viable, twin di/di neonates at 36+0 weeks ([facility](LMP) 02/21/21) S/P removal of cerclage with AROM IOL. A pos, Ab neg, RI, GBS negative. Antibiotic prophylaxis not completed intrapartum. Patient denies any complaints or concerns at this time. VSS, afebrile. Bottle feeding, eating, hydrating, ambulating, and urinating independently and without issue. Uterus firm, U-2. Moderate rubra lochia, no clots. Mild to moderate uterine cramping somewhat relieved with acetaminophen. Hx: h/o PE, A1GDM. Diagnosis: Stroke: No - Discharge Data Discharge Date: 01/26/21 Discharge Disposition: Home, Self-Care 01 Condition: Good - Referral to Home Health Primary Care Physician: PCP None - Discharge Diagnosis/Problem(s) (1) Twin SNOMED Code(s): 37178790 ICD Code: Z37.9 - OUTCOME OF DELIVERY, UNSPECIFIED Status: Acute Priority: High Current Visit: Yes (2) Dichorionic diamniotic twin gestation SNOMED Code(s): 243673375 ICD Code: O30.049 - TWIN , DICHORIONIC/DIAMNIOTIC, UNSP TRIMESTER Status: Acute Priority: High Current Visit: Yes Qualifiers: Trimester: third trimester Qualified Code(s): O30.043 - Twin , dichorionic/diamniotic, third trimester (3) 36 weeks gestation of SNOMED Code(s): 95235013 ICD Code: Z3A.36 - 36 WEEKS GESTATION OF Status: Acute Priority: High Current Visit: Yes - Patient Instructions Diet: Usual Diet as Tolerated, Regular Diet as Tolerated, Drink 8-10+ Glasses/Day, No Alcoholic Beverages Activity: As Tolerated, No Strenuous Activities, Rest and Relax Today Driving: May Drive Today Showering/Bathing: May Shower Showering/Bathing, Other: May sitz bath for perineal comfort Notify Provider of: Fever, Increased Pain, Swelling and Redness, Drainage, Nausea and/or Vomiting - Discharge Plan *PRESCRIPTION DRUG MONITORING PROGRAM REVIEWED*: No *COPY OF PRESCRIPTION DRUG MONITORING REPORT IN PATIENT MADELYN: No Prescriptions/Med Rec: Docusate Sodium [Colace] 100 mg PO BID PRN #60 cap PRN Reason: Constipation Iron Polysaccharides Complex [Ferrex 150] 150 mg PO DAILY #30 cap Enoxaparin [Lovenox] 40 mg SUBCUT Q24H #5 syringe Acetaminophen [Tylenol Extra Strength] 1,000 mg PO Q6H PRN #60 tablet PRN Reason: Pain Home Medications: Home Meds Pnv No.95/Ferrous Fum/Folic AC [ Vitamin Tablet] 1 tab PO BEDTIME 11/01/20 [History] Acetaminophen [Tylenol Extra Strength] 1,000 mg PO Q6H PRN #60 tablet 01/26/21 [Rx] Docusate Sodium [Colace] 100 mg PO BID PRN #60 cap 01/26/21 [Rx] Enoxaparin [Lovenox] 40 mg SUBCUT Q24H #5 syringe 01/26/21 [Rx] Iron Polysaccharides Complex [Ferrex 150] 150 mg PO DAILY #30 cap 01/26/21 [Rx] Oxygen Therapy Mode: Room Air - Discharge Summary/Plan Comment DC Time >30 min.: Yes Discharge Summary/Plan Comment: Plan to D/C home today. Continue 40 mg lovenox subq q24 hrs x 5 days (last dose 01/31/2021), then plan to return to oral anticoagulant therapy thereafter. Hgb 9.3, may continue daily iron supplementation if desired. Continue bottle-feeding. Warning S/Ss, when to call for help discussed, no questions or concerns at this time. Office staff will call patient this week with F/U appointment day and time. - General Info Date of Service: 01/26/21 Admission Dx/Problem (Free Text: Patient Status Order with Admit Dx/Problem 01/24/21 05:34 Patient Status [ADT] Routine Admission Diagnosis/Problem Admission Diagnosis/Problem Twin 01/24/21 07:36 Jami is a 30 yo s/p of viable, twin di/di neonates at 36+0 weeks ([facility](LMP) 02/21/21) S/P removal of cerclage with AROM IOL. A pos, Ab neg, RI, GBS negative. Antibiotic prophylaxis not completed intrapartum. Patient denies any complaints or concerns at this time. VSS, afebrile. Bottle feeding, eating, hydrating, ambulating, and urinating independently and without issue. Uterus firm, U-2. Light to moderate rubra lochia, no clots. Mild to moderate uterine cramping somewhat relieved with ibuprofen. Hx: h/o PE, A1GDM. Functional Status: Reports: Pain Controlled, Tolerating Diet, Ambulating, Urinating - Review of Systems General: Reports: No Symptoms HEENT: Reports: No Symptoms Pulmonary: Reports: No Symptoms Cardiovascular: Reports: No Symptoms Gastrointestinal: Reports: No Symptoms Genitourinary: Reports: No Symptoms Musculoskeletal: Reports: No Symptoms Skin: Reports: No Symptoms Neurological: Reports: No Symptoms Psychiatric: Reports: No Symptoms - Patient Data Vitals - Most Recent: Last Vital Signs Temp 97.4 F 01/26/21 04:00 Pulse 71 01/26/21 04:00 Resp 16 01/26/21 04:00 BP 134/87 01/26/21 04:00 Pulse Ox 99 01/26/21 04:00 Weight - Most Recent: 160 lb 6.4 oz Med Orders - Current: Current Medications Acetaminophen (Tylenol Extra Strength) 500 mg PO Q4H PRN PRN Reason: Pain Acetaminophen (Tylenol Extra Strength) 1,000 mg PO Q4H PRN PRN Reason: Pain Last Admin: 01/25/21 02:45 Dose: 1,000 mg Documented by: Benzocaine/Menthol (Dermoplast Pain Relief 20%-0.5% [place]) 78 gm TOP ASDIRECTED PRN PRN Reason: Perineal Comfort Measure Bisacodyl (Dulcolax) 10 mg RECTAL ONETIME PRN PRN Reason: Constipation Docusate Sodium (Colace) 100 mg PO BID PRN PRN Reason: Constipation Emollient Ointment (Lansinoh Hpa) 0 gm TOP ASDIRECTED PRN PRN Reason: Sore Nipples Enoxaparin Sodium (Lovenox) 40 mg SUBCUT Q24H [facility] Stop: 02/01/21 09:01 Last Admin: 01/25/21 09:19 Dose: 40 mg Documented by: Ibuprofen (Motrin) 400 mg PO Q4H PRN PRN Reason: Pain Ibuprofen (Motrin) 800 mg PO Q6H PRN PRN Reason: Pain Last Admin: 01/25/21 09:24 Dose: 800 mg Documented by: Oxycodone HCl (Oxycodone) 5 mg PO Q2H PRN PRN Reason: Pain Polysaccharide Iron Complex (Ferrex 150) 150 mg PO DAILY [facility] Last Admin: 01/25/21 09:18 Dose: 150 mg Documented by: Mariel Porter) 1 pad TOP ASDIRECTED PRN PRN Reason: comfort care Discontinued Medications Butorphanol Tartrate (Stadol) 1 mg IVPUSH Q1H PRN PRN Reason: Pain Carboprost Tromethamine (Hemabate Ds) 250 mcg IM ASDIRECTED PRN PRN Reason: Post Hemorrhage Fentanyl (Sublimaze) Confirm Administered Dose 100 mcg .ROUTE .[facility] ONE Stop: 01/24/21 07:54 Last Admin: 01/24/21 10:06 Dose: Not Given Documented by: Oxytocin/Sodium Chloride (Oxytocin 30 Unit/500 Ml-Ns) 30 unit in 500 mls @ 500 mls/hr IV TITRATE [facility] Tranexamic Acid 1,000 mg/ (Sodium Chloride) 110 mls @ 660 mls/hr IV ONETIME PRN PRN Reason: Bleeding Lactated Ringer's (Ringers, Lactated) 1,000 mls @ 150 mls/hr IV ASDIRECTED [facility] Last Admin: 01/24/21 08:37 Dose: 150 mls/hr Documented by: Ropivacaine (Naropin 0.2%) Confirm Administered Dose 100 mls @ as directed [facility] Stop: 01/24/21 07:54 Last Admin: 01/24/21 10:06 Dose: Not Given Documented by: Oxytocin/Sodium Chloride (Oxytocin 30 Unit/500 Ml-Ns) 30 unit in 500 mls @ 2 mls/hr IV TITRATE [facility]; Protocol Last Infusion: 01/24/21 13:35 Dose: 8 munits/min, 8 mls/hr Documented by: Lidocaine HCl (Xylocaine 1%) 50 ml INJECT ONETIME PRN PRN Reason: Laceration repair Methylergonovine Maleate (Methergine) 0.2 mg IM ASDIRECTED PRN PRN Reason: Post Hemorrhage Misoprostol (Cytotec) 200 mcg PO ONETIME PRN PRN Reason: Post Hemorrhage Nalbuphine HCl (Nubain) 10 mg IVPUSH Q1H PRN PRN Reason: Pain (severe 7-10) Ondansetron HCl (Zofran) 4 mg IVPUSH Q6H PRN PRN Reason: Nausea/Vomiting Sodium Chloride (Saline Flush) 10 ml FLUSH ASDIRECTED PRN PRN Reason: Keep Vein Open Sodium Chloride (Saline Flush) 2.5 ml FLUSH ASDIRECTED PRN PRN Reason: Keep Vein Open Sodium Chloride (Normal Saline) 10 ml IV ASDIRECTED PRN PRN Reason: IV Use Sterile Water (Sterile Water For Irrigation) 1,000 ml IRR ASDIRECTED PRN PRN Reason: delivery - Exam General: Reports: Alert, Oriented, Cooperative, No Acute Distress HEENT: Reports: Pupils Equal, Pupils Reactive, Mucous Membr. Moist/[place] Neck: Reports: Supple Lungs: Reports: Clear to Auscultation, Normal Respiratory Effort Cardiovascular: Reports: Regular Rate, Regular Rhythm GI/Abdominal Exam: Normal Bowel Sounds, Soft, Non-Tender, No Organomegaly, No Distention (Female) Exam: Normal External Exam, Enlarged Uterus ( uterus, firm U-2), Vaginal Bleeding ( Moderate rubra lochia, no clots.) Rectal (Female) Exam: Deferred Back Exam: Reports: Normal Inspection, Full Range of Motion Extremities: Normal Inspection, Normal Range of Motion, Non-Tender, No Pedal Edema, Normal Capillary Refill Skin: Reports: Warm, Dry, Intact Neurological: Reports: No New Focal Deficit Psy/Mental Status: Reports: Alert, Normal Affect, Normal Mood
[2021-01-26] MEDS: Iron Polysaccharides Complex 150 MG Cap PO SCH (09:03)
[2021-01-26] MEDS: Enoxaparin 40 MG/0.4 ML Syringe SUBCUT SCH (09:03)
[2021-01-26 09:43] VITALS: BP 122/72; PULSE 81
== END 2021-01-26 13:10 | disposition home or self-care (01) | DRG 805 ==
LOC: MW.OB 04:59 → OBSVTOIN 05:34 → MW.OB 05:34
PROVIDERS: ADMIT Obstetrics & Gynecology; ATTEND Obstetrics & Gynecology
PROC: 10E0XZZ Delivery of Products of Conception, External Approach (ICD-10-PCS; principal; 2021-01-24)
PROC: 10907ZC Drainage of Amniotic Fluid, Therapeutic from Products of Conception, Via Natural or Artificial Opening (ICD-10-PCS; 2021-01-24)
PROC: 3E0R3BZ Introduction of Anesthetic Agent into Spinal Canal, Percutaneous Approach (ICD-10-PCS; 2021-01-24)
DX: O30.043 Twin pregnancy, dichorionic/diamniotic, third trimester (principal); O34.33 Maternal care for cervical incompetence, third trimester; Z37.2 Twins, both liveborn; Z3A.36 36 weeks gestation of pregnancy; O24.420 Gestational diabetes mellitus in childbirth, diet controlled; O69.81X1 Labor and delivery complicated by cord around neck, without compression, fetus 1
CPT/HCPCS: 36415; 59025; 59409; 76815; 76815-26; 76816; 76998; 85014; 85018; 85027; 86592; 86850; 86900; 86901; A9270-GY; J1650; J2590; J7120

== ENCOUNTER 2021-01-29 16:44 | Observation (INO) | payer MEDICAID ==
[2021-01-29] MEDS ORDERED: Sodium Chloride 0.9% 2.5 ML Syringe FLUSH PRN (17:20)
[2021-01-29] MEDS ORDERED: Sodium Chloride 0.9% 10 ML Syringe FLUSH PRN (17:20)
--- NOTE | 2021-01-29 17:54 | EDM.PDOC ---
<Henok Quinn - Last Filed: 01/29/21 19:09> ED HPI GENERAL MEDICAL PROBLEM - General Chief Complaint: Respiratory Problem Stated Complaint: BACK PAIN, SHORT OF BREATH Time Seen by Provider: 01/29/21 17:12 Source of Information: Reports: Patient History Limitations: Reports: No Limitations - History of Present Illness INITIAL COMMENTS - FREE TEXT/NARRATIVE: 30-year-old female history of pulmonary embolism, status post twin 01/24 presents with her pleuritic dyspnea and upper back pain that started today. She denies hemoptysis, fever, chills, chest pain, vaginal bleeding or clots. She does admit to a dry cough. ROS: A 10-point review of systems, other than pertinent positives and negatives as stated per HPI, is otherwise negative Past medical history: No additional pertinent history Past Surgical history: No additional pertinent history Social history: No additional pertinent history Family history: No additional pertinent history PHYSICAL EXAM General: AOx4, GCS = 15, No distress HEENT: dry mucous membrane Neck: supple, no meningismus, no Kernig or Brudzinski Cardiac: S1S2 RRR Respiratory: CTAB, no crackles or rales, no wheezing Abdomen: Soft, nontender, no rebound or guarding, nondistended, no pulsatile mass. Back: nontender Musculoskeletal: NVI distally, no deformity Neuro: No focal deficits, CN 2 - 12 WNL. 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: Reports: Musculoskeletal History: Reports: None Neurological History: Reports: None Psychiatric History: Reports: None Endocrine/Metabolic History: Reports: Diabetes, Gestational Hematologic History: Reports: Anticoagulation Therapy Immunologic History: Reports: None Oncologic (Cancer) History: Reports: None Dermatologic History: Reports: None - Infectious Disease History Infectious Disease History: Reports: None - Past Surgical History Head Surgeries/Procedures: Reports: None HEENT Surgical History: Reports: None Cardiovascular Surgical History: Reports: None Respiratory Surgical History: Reports: None GI Surgical History: Reports: None Female Surgical History: Reports: None Endocrine Surgical History: Reports: None Neurological Surgical History: Reports: None Musculoskeletal Surgical History: Reports: None Oncologic Surgical History: Reports: None Dermatological Surgical History: Reports: None Social & Family History - Family History Family Medical History: No Pertinent Family History OBGYN: Reports: - Tobacco Use Tobacco Use Status *Q: Never Tobacco User - Caffeine Use Caffeine Use: Reports: None - Recreational Drug Use Recreational Drug Use: No ED ROS GENERAL - Review of Systems Review Of Systems: See Below (see dictation) ED EXAM, GENERAL - Physical Exam Exam: See Below (see dictation) #1 Interpretation EKG Interpretation Comments: Heart rate = 67 bpm, normal sinus rhythm, normal QRS interval, no STEMI. EKG and rhythm strip interpreted by me at 1739 Course - Re-Assessments/Exams Free Text/Narrative Re-Assessment/Exam: 01/29/21 19:10 Case signed out to Dr. Prater for ultimate disposition. Departure - Departure Disposition: Refer to Observation Clinical Impression: Cardiomegaly - Discharge Information Sepsis Event Note (ED) - Evaluation Sepsis Screening Result: No Definite Risk <Reed Prater - Last Filed: 01/30/21 02:46> ED HPI GENERAL MEDICAL PROBLEM - History of Present Illness INITIAL COMMENTS - FREE TEXT/NARRATIVE: Patient was signed out to me by Dr. Quinn pending CT angiogram at 7PM I did reevaluate the patient and patient continued to remain stable. Her vitals were normal on my evaluation. Labs reviewed which did reveal a CBC with a normocytic anemia with a hemoglobin of 10.6 hematocrit of 33.8 which is up from prior at 9.3 and 29.4. INR is normal. CMP reveals hypokalemia at 3.4 mild elevation in alkaline phosphatase 184 and hypoalbuminemia 2.7. Troponin x2 is negative. BN P is elevated at 218. Urinalysis did show large blood with small leukocyte esterase. There is trace proteinuria. The radiological images were viewed by myself along with reading the report from the radiologist. CT a of the chest reveals poor opacification in the right lower lobe pulmonary arterial tree with apparent stenosis of the proximal and distal branches. This appearance is favored to be secondary to residual chronic thrombus from prior occlusive right lower lobe thromboembolus. Cannot exclude superimposed small pulmonary emboli. The remainder of the pulmonary tree is patent. There is an irregular nodular opacity in the posterior and lateral right costophrenic angle this is decreased in size since prior and may represent residual changes from prior pulmonary infarct 10 months ago. There is stable cardiomegaly with bilateral small pleural effusions Given that the patient is recently and is hypertensive there is still concern for preeclampsia versus cardiomyopathy given the small effusions and cardiomegaly on CTA. I did have a discussion with the patient at this time regarding admission. She was amenable to this plan. I contacted Dr. Bowman who accepted the patient for admission. DISPOSITION: Patient was admitted to telemetry in stable condition CONDITION: Fair PROCEDURES: None FINAL IMPRESSION(S)/DIAGNOSES: 1. Acute right-sided pleuritic chest pain likely secondary to resolving pulmonary infarct 2. Acute bilateral small pleural effusions, possible cardiomyopathy 3. Acute hypertension, possible preeclampsia Reed Prater M.D. Course - Vital Signs Last Recorded V/S: Last Vital Signs Temp 36.1 C 01/29/21 21:12 Pulse 70 01/30/21 00:38 Resp 16 01/30/21 00:38 BP 132/78 01/30/21 00:38 Pulse Ox 99 01/30/21 00:38 - Orders/Labs/Meds Orders: Active Orders 24 hr Category Date Time Status Cardiac Monitoring [RC] . DIRECTED Care 01/29/21 17:20 Active EKG Documentation Completion [RC] STAT Care 01/29/21 17:21 Active CULTURE URINE [RM] Stat Lab 01/29/21 20:46 Received Sodium Chloride 0.9% [Saline Flush] Med 01/29/21 17:20 Active 10 ml FLUSH ASDIRECTED PRN Sodium Chloride 0.9% [Saline Flush] Med 01/29/21 17:20 Active 2.5 ml FLUSH ASDIRECTED PRN Saline Lock Insert [OM.PC] Stat Oth 01/29/21 17:20 Ordered Medication Orders Acetaminophen (Tylenol) 650 mg PO Q4H PRN PRN Reason: Pain (Mild 1-3)/fever Albuterol/Ipratropium (Duoneb 3.0-0.5 Mg/3 Ml) 3 ml NEB Q4HRRT PRN PRN Reason: Shortness Of Breath/wheezing Enoxaparin Sodium (Lovenox) 40 mg SUBCUT Q24H [facility] Last Admin: 01/29/21 22:44 Dose: 40 mg Documented by: DAYANA Ceftriaxone Sodium/Dextrose 1 (gm/ Premix) 50 mls @ 100 mls/hr IV Q24H [facility] Last Admin: 01/30/21 01:51 Dose: 100 mls/hr Documented by: LOUIE Polysaccharide Iron Complex (Ferrex 150) 150 mg PO DAILY [facility] Sodium Chloride (Saline Flush) 10 ml FLUSH ASDIRECTED PRN PRN Reason: Keep Vein Open Last Admin: 01/29/21 17:39 Dose: 10 ml Documented by: SUSAN Sodium Chloride (Saline Flush) 2.5 ml FLUSH ASDIRECTED PRN PRN Reason: Keep Vein Open Last Admin: 01/29/21 17:39 Dose: 2.5 ml Documented by: SUSAN Labs: Laboratory Tests 01/29/21 01/29/21 01/29/21 Range/Units 03:36 03:36 17:20 WBC 10.10 (4.0-11.0) K/uL RBC 3.97 L (4.30-5.90) M/uL Hgb 10.6 L (12.0-16.0) g/dL Hct 33.8 L (36.0-46.0) % MCV 85.1 (80.0-98.0) fL MCH 26.7 L (27.0-32.0) pg MCHC 31.4 (31.0-37.0) g/dL RDW Std Deviation 50.0 (28.0-62.0) fl RDW Coeff of Conchita 16 H (11.0-15.0) % Plt Count 327 (150-400) K/uL MPV 10.30 (7.40-12.00) fL Neut % (Auto) 63.7 (48.0-80.0) % Lymph % (Auto) 25.2 (16.0-40.0) % [place] % (Auto) 9.2 (0.0-15.0) % Eos % (Auto) 1.5 (0.0-7.0) % Baso % (Auto) 0.4 (0.0-1.5) % Neut # (Auto) 6.4 H (1.4-5.7) K/uL Lymph # (Auto) 2.6 H (0.6-2.4) K/uL [place] # (Auto) 0.9 H (0.0-0.8) K/uL Eos # (Auto) 0.2 (0.0-0.7) K/uL Baso # (Auto) 0.0 (0.0-0.1) K/uL Nucleated RBC % 0.7 /100WBC Nucleated RBCs # 0 K/uL INR Sodium (136-145) mmol/L Potassium (3.5-5.1) mmol/L Chloride (98-107) mmol/L Carbon Dioxide (21.0-32.0) mmol/L BUN (7.0-18.0) mg/dL Creatinine (0.6-1.0) mg/dL Est Cr Clr Drug Dosing mL/min Estimated GFR (MDRD) ml/min Glucose (74-106) mg/dL Hemoglobin A1c 5.5 (4.5 - 6.2) % Calcium (8.5-10.1) mg/dL Iron (50-175) ug/dL TIBC (250-450) ug/dL % Saturation (20-55) % Total Bilirubin (0.2-1.0) mg/dL AST (15-37) IU/L ALT (14-63) IU/L Alkaline Phosphatase (46-116) U/L Troponin I < 0.050 (0.000-0.056) ng/mL B-Natriuretic Peptide (<100) PG/ML Total Protein (6.4-8.2) g/dL Albumin (3.4-5.0) g/dL Globulin (2.6-4.0) g/dL Albumin/Globulin Ratio (0.9-1.6) Urine Color Urine Appearance Urine pH (5.0-8.0) Ur Specific Dana (1.001-1.035) Urine Protein (NEGATIVE) mg/dL Urine Glucose (UA) (NEGATIVE) mg/dL Urine Ketones (NEGATIVE) mg/dL Urine Occult Blood (NEGATIVE) Urine Nitrite (NEGATIVE) Urine Bilirubin (NEGATIVE) Urine Urobilinogen (<2.0) EU/dL Ur Leukocyte Esterase (NEGATIVE) Urine RBC (0-2/HPF) Urine WBC (0-5/HPF) Ur Epithelial Cells (NONE-FEW) Urine Bacteria (NEGATIVE) SARS-CoV-2 RNA (SUNSHINE) (NEGATIVE) 01/29/21 01/29/21 01/29/21 Range/Units 17:20 17:20 17:20 WBC (4.0-11.0) K/uL RBC (4.30-5.90) M/uL Hgb (12.0-16.0) g/dL Hct (36.0-46.0) % MCV (80.0-98.0) fL MCH (27.0-32.0) pg MCHC (31.0-37.0) g/dL RDW Std Deviation (28.0-62.0) fl RDW Coeff of Conchita (11.0-15.0) % Plt Count (150-400) K/uL MPV (7.40-12.00) fL Neut % (Auto) (48.0-80.0) % Lymph % (Auto) (16.0-40.0) % [place] % (Auto) (0.0-15.0) % Eos % (Auto) (0.0-7.0) % Baso % (Auto) (0.0-1.5) % Neut # (Auto) (1.4-5.7) K/uL Lymph # (Auto) (0.6-2.4) K/uL [place] # (Auto) (0.0-0.8) K/uL Eos # (Auto) (0.0-0.7) K/uL Baso # (Auto) (0.0-0.1) K/uL Nucleated RBC % /100WBC Nucleated RBCs # K/uL INR 0.94 Sodium 143 (136-145) mmol/L Potassium 3.4 L (3.5-5.1) mmol/L Chloride 107 (98-107) mmol/L Carbon Dioxide 22.2 (21.0-32.0) mmol/L BUN 11 (7.0-18.0) mg/dL Creatinine 0.7 (0.6-1.0) mg/dL Est Cr Clr Drug Dosing 100.55 mL/min Estimated GFR (MDRD) > 60.0 ml/min Glucose 79 (74-106) mg/dL Hemoglobin A1c (4.5 - 6.2) % Calcium 8.5 (8.5-10.1) mg/dL Iron (50-175) ug/dL TIBC (250-450) ug/dL % Saturation (20-55) % Total Bilirubin 0.3 (0.2-1.0) mg/dL AST 18 (15-37) IU/L ALT 26 (14-63) IU/L Alkaline Phosphatase 184 H (46-116) U/L Troponin I < 0.050 (0.000-0.056) ng/mL B-Natriuretic Peptide 218 H (<100) PG/ML Total Protein 6.9 (6.4-8.2) g/dL Albumin 2.7 L (3.4-5.0) g/dL Globulin 4.2 H (2.6-4.0) g/dL Albumin/Globulin Ratio 0.6 L (0.9-1.6) Urine Color Urine Appearance Urine pH (5.0-8.0) Ur Specific Dana (1.001-1.035) Urine Protein (NEGATIVE) mg/dL Urine Glucose (UA) (NEGATIVE) mg/dL Urine Ketones (NEGATIVE) mg/dL Urine Occult Blood (NEGATIVE) Urine Nitrite (NEGATIVE) Urine Bilirubin (NEGATIVE) Urine Urobilinogen (<2.0) EU/dL Ur Leukocyte Esterase (NEGATIVE) Urine RBC (0-2/HPF) Urine WBC (0-5/HPF) Ur Epithelial Cells (NONE-FEW) Urine Bacteria (NEGATIVE) SARS-CoV-2 RNA (SUNSHINE) (NEGATIVE) 01/29/21 01/29/21 01/29/21 Range/Units 17:20 20:05 20:33 WBC (4.0-11.0) K/uL RBC (4.30-5.90) M/uL Hgb (12.0-16.0) g/dL Hct (36.0-46.0) % MCV (80.0-98.0) fL MCH (27.0-32.0) pg MCHC (31.0-37.0) g/dL RDW Std Deviation (28.0-62.0) fl RDW Coeff of Conchita (11.0-15.0) % Plt Count (150-400) K/uL MPV (7.40-12.00) fL Neut % (Auto) (48.0-80.0) % Lymph % (Auto) (16.0-40.0) % [place] % (Auto) (0.0-15.0) % Eos % (Auto) (0.0-7.0) % Baso % (Auto) (0.0-1.5) % Neut # (Auto) (1.4-5.7) K/uL Lymph # (Auto) (0.6-2.4) K/uL [place] # (Auto) (0.0-0.8) K/uL Eos # (Auto) (0.0-0.7) K/uL Baso # (Auto) (0.0-0.1) K/uL Nucleated RBC % /100WBC Nucleated RBCs # K/uL INR Sodium (136-145) mmol/L Potassium (3.5-5.1) mmol/L Chloride (98-107) mmol/L Carbon Dioxide (21.0-32.0) mmol/L BUN (7.0-18.0) mg/dL Creatinine (0.6-1.0) mg/dL Est Cr Clr Drug Dosing mL/min Estimated GFR (MDRD) ml/min Glucose (74-106) mg/dL Hemoglobin A1c (4.5 - 6.2) % Calcium (8.5-10.1) mg/dL Iron 37 L (50-175) ug/dL TIBC 478 H (250-450) ug/dL % Saturation 7.74 L (20-55) % Total Bilirubin (0.2-1.0) mg/dL AST (15-37) IU/L ALT (14-63) IU/L Alkaline Phosphatase (46-116) U/L Troponin I < 0.050 (0.000-0.056) ng/mL B-Natriuretic Peptide (<100) PG/ML Total Protein (6.4-8.2) g/dL Albumin (3.4-5.0) g/dL Globulin (2.6-4.0) g/dL Albumin/Globulin Ratio (0.9-1.6) Urine Color Urine Appearance Urine pH (5.0-8.0) Ur Specific [place] (1.001-1.035) Urine Protein (NEGATIVE) mg/dL Urine Glucose (UA) (NEGATIVE) mg/dL Urine Ketones (NEGATIVE) mg/dL Urine Occult Blood (NEGATIVE) Urine Nitrite (NEGATIVE) Urine Bilirubin (NEGATIVE) Urine Urobilinogen (<2.0) EU/dL Ur Leukocyte Esterase (NEGATIVE) Urine RBC (0-2/HPF) Urine WBC (0-5/HPF) Ur Epithelial Cells (NONE-FEW) Urine Bacteria (NEGATIVE) SARS-CoV-2 RNA (SUNSHINE) NEGATIVE (NEGATIVE) 01/29/21 Range/Units 20:46 WBC (4.0-11.0) K/uL RBC (4.30-5.90) M/uL Hgb (12.0-16.0) g/dL Hct (36.0-46.0) % MCV (80.0-98.0) fL MCH (27.0-32.0) pg MCHC (31.0-37.0) g/dL RDW Std Deviation (28.0-62.0) fl RDW Coeff of Conchita (11.0-15.0) % Plt Count (150-400) K/uL MPV (7.40-12.00) fL Neut % (Auto) (48.0-80.0) % Lymph % (Auto) (16.0-40.0) % [place] % (Auto) (0.0-15.0) % Eos % (Auto) (0.0-7.0) % Baso % (Auto) (0.0-1.5) % Neut # (Auto) (1.4-5.7) K/uL Lymph # (Auto) (0.6-2.4) K/uL [place] # (Auto) (0.0-0.8) K/uL Eos # (Auto) (0.0-0.7) K/uL Baso # (Auto) (0.0-0.1) K/uL Nucleated RBC % /100WBC Nucleated RBCs # K/uL INR Sodium (136-145) mmol/L Potassium (3.5-5.1) mmol/L Chloride (98-107) mmol/L Carbon Dioxide (21.0-32.0) mmol/L BUN (7.0-18.0) mg/dL Creatinine (0.6-1.0) mg/dL Est Cr Clr Drug Dosing mL/min Estimated GFR (MDRD) ml/min Glucose (74-106) mg/dL Hemoglobin A1c (4.5 - 6.2) % Calcium (8.5-10.1) mg/dL Iron (50-175) ug/dL TIBC (250-450) ug/dL % Saturation (20-55) % Total Bilirubin (0.2-1.0) mg/dL AST (15-37) IU/L ALT (14-63) IU/L Alkaline Phosphatase (46-116) U/L Troponin I (0.000-0.056) ng/mL B-Natriuretic Peptide (<100) PG/ML Total Protein (6.4-8.2) g/dL Albumin (3.4-5.0) g/dL Globulin (2.6-4.0) g/dL Albumin/Globulin Ratio (0.9-1.6) Urine Color YELLOW Urine Appearance HAZY Urine pH 6.0 (5.0-8.0) Ur Specific [place] 1.015 (1.001-1.035) Urine Protein TRACE H (NEGATIVE) mg/dL Urine Glucose (UA) NEGATIVE (NEGATIVE) mg/dL Urine Ketones TRACE H (NEGATIVE) mg/dL Urine Occult Blood LARGE H (NEGATIVE) Urine Nitrite NEGATIVE (NEGATIVE) Urine Bilirubin NEGATIVE (NEGATIVE) Urine Urobilinogen 1.0 (<2.0) EU/dL Ur Leukocyte Esterase SMALL H (NEGATIVE) Urine RBC 50-60 (0-2/HPF) Urine WBC 10-15 (0-5/HPF) Ur Epithelial Cells OCCASIONAL (NONE-FEW) Urine Bacteria FEW (NEGATIVE) SARS-CoV-2 RNA (SUNSHINE) (NEGATIVE) Meds: Medications Generic Name Dose Route Start Last Admin Trade Name Freq PRN Reason Stop Dose Admin Acetaminophen 650 mg 01/29/21 22:28 Tylenol PO Q4H PRN Pain (Mild 1-3)/fever Albuterol/Ipratropium 3 ml 01/29/21 22:28 Duoneb 3.0-0.5 Mg/3 Ml NEB Q4HRRT PRN Shortness Of Breath/wheezing Enoxaparin Sodium 40 mg 01/29/21 22:30 01/29/21 22:44 Lovenox SUBCUT 40 mg Q24H [facility] Administration Ceftriaxone Sodium/Dextrose 1 50 mls @ 100 mls/hr 01/30/21 00:30 01/30/21 01:51 gm/ Premix IV 100 mls/hr Q24H [facility] Administration Polysaccharide Iron Complex 150 mg 01/30/21 09:00 Ferrex 150 PO DAILY [facility] Sodium Chloride 10 ml 01/29/21 17:20 01/29/21 17:39 Saline Flush FLUSH 10 ml ASDIRECTED PRN Administration Keep Vein Open Sodium Chloride 2.5 ml 01/29/21 17:20 01/29/21 17:39 Saline Flush FLUSH 2.5 ml ASDIRECTED PRN Administration Keep Vein Open Discontinued Medications Generic Name Dose Route Start Last Admin Trade Name Herbq PRN Reason Stop Dose Admin Furosemide 20 mg 01/29/21 22:34 01/29/21 22:46 Lasix IVPUSH 01/29/21 22:35 20 mg ONETIME ONE Administration Iopamidol 50 ml 01/29/21 19:10 01/29/21 19:11 Isovue-370 (76%) IVPUSH 01/29/21 19:11 50 ml ONETIME STA Administration Potassium Chloride 40 meq 01/29/21 22:37 01/29/21 22:44 Klor-Con M20 PO 01/29/21 22:38 40 meq ONETIME ONE Administration Departure - Departure Time of Disposition: 21:08 Condition: Fair Sepsis Event Note (ED) - Focused Exam Vital Signs: Vital Signs Temp Pulse Resp BP Pulse Ox 01/29/21 17:14 36.4 C 77 17 147/89 H 99 - My Orders Last 24 Hours: My Active Orders 01/29/21 20:46 CULTURE URINE [RM] Stat - Assessment/Plan Last 24 Hours: My Active Orders 01/29/21 20:46 CULTURE URINE [RM] Stat
[2021-01-29 18:19] LABS: BLOOD UREA NITROGEN,BUN 11 mg/dL (7.0-18.0); CARBON DIOXIDE,CO2 22.2 mmol/L (21.0-32.0); CHLORIDE,CL 107 mmol/L (98-107); GLUCOSE RANDOM 79 mg/dL (74-106); POTASSIUM,K 3.4 mmol/L (3.5-5.1); SODIUM,NA 143 mmol/L (136-145)
[2021-01-29] MEDS ORDERED: Iopamidol 755 Mg/ML 100 ML Bottle IVPUSH STA (19:10)
--- NOTE | 2021-01-29 19:44 | CT ---
INDICATION: Dyspnea, right-sided chest pain, status post vaginal delivery, history of PE TECHNIQUE: Contrast enhanced axial CT imaging through the chest, optimized for assessment of the pulmonary arterial tree. 50 mL Isovue 370 contrast agent was administered intravenously. Sagittal and coronal reconstructions are provided. COMPARISON: CTA chest PE protocol 04/02/2020 FINDINGS: There is adequate opacification of the pulmonary arterial tree. There is poor opacification of the right lower lobe pulmonary arterial tree, with apparent stenosis of the proximal and distal branches due to peripheral opacities. There are no central filling defects. Remainder of the pulmonary arterial tree is widely patent. There is stable mild enlargement of the main pulmonary artery, similar to prior. There is irregular subpleural nodular opacity in the right lateral and posterior costophrenic angle. The right upper lobe and left lung are clear. Very small pleural effusions are present bilaterally, slightly worse on the right. There is stable cardiomegaly. There is no pericardial effusion. The thoracic aorta is normal in caliber. There is no mediastinal lymphadenopathy. The thoracic osseous structures are unremarkable. No significant abnormality is demonstrated in the visualized upper abdomen. IMPRESSION: 1. Poor opacification the right lower lobe pulmonary arterial tree with apparent stenosis of the proximal and distal branches. This appearance is favored to be secondary to residual chronic thrombus from prior occlusive right lower lobe thromboembolus. However, superimposed small pulmonary emboli cannot be excluded. Remainder of the pulmonary arterial tree is patent. 2. Irregular nodular opacity in the posterior and lateral right costophrenic angle. This is decreased since prior and may represent residual changes from pulmonary infarct 10 months ago. However, superimposed acute pulmonary infarct cannot be excluded. 6-12 months follow-up chest CT is recommended to monitor resolution. 3. Stable cardiomegaly. Bilateral very small pleural effusions. Please note that all CT scans at this facility use dose modulation, iterative reconstruction, and/or weight-based dosing when appropriate to reduce radiation dose to as low as reasonably achievable. Dictated by Jarod Larson MD @ Jan 29 2021 7:41PM Signed by Dr. Jarod Larson @ Jan 29 2021 7:41PM
[2021-01-29] MEDS ORDERED: Acetaminophen 325 MG Tab PO PRN (22:28)
[2021-01-29] MEDS ORDERED: Albuterol/Ipratropium 3.0-0.5 MG/3 ML Neb Soln NEB PRN (22:28)
[2021-01-29] MEDS ORDERED: Enoxaparin 40 MG/0.4 ML Syringe SUBCUT SCH (22:30)
[2021-01-29] MEDS ORDERED: Furosemide 20 MG/2 ML VIAL IVPUSH ONE (22:34)
[2021-01-29] MEDS ORDERED: Potassium Chloride 20 MEQ Tab.ER PO ONE (22:37)
--- NOTE | 2021-01-29 22:38 | PCM.HP.2 ---
H&P History of Present Illness - General Date of Service: 01/29/21 Admit Problem/Dx: Admission Diagnosis/Problem Admission Diagnosis/Problem Cardiomegaly - History of Present Illness Initial Comments - Free Text/Narative: 30-year-old female history of pulmonary embolism diagnosed on january 2020 on lovenox, HTN, Cardiomegaly, Diet controlled gestational DM, Twin s/p on 01/24, anemia comes in to the ER with pleuritic dyspnea and upper back pain that started today. She denies hemoptysis, fever, chills, chest pain, vaginal bleeding or clots. She does admit to a dry cough. Labs were grossly unremarkable , except for high BNP, elevated Alk phos, and anemia. 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 6-[address] was recommended by radiology b/l small pleural effusions, stable cardiomegaly. Troponin was negative, Patient was admitted for further work up. 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: Musculoskeletal History: Reports: None Neurological History: Reports: None Psychiatric History: Reports: None Endocrine/Metabolic History: Reports: Diabetes, Gestational Hematologic History: Reports: Anticoagulation Therapy Immunologic History: Reports: None Oncologic (Cancer) History: Reports: None Dermatologic History: Reports: None - Infectious Disease History Infectious Disease History: Reports: None - Past Surgical History Head Surgeries/Procedures: Reports: None HEENT Surgical History: Reports: None Cardiovascular Surgical History: Reports: None Respiratory Surgical History: Reports: None GI Surgical History: Reports: None Female Surgical History: Reports: None Endocrine Surgical History: Reports: None Neurological Surgical History: Reports: None Musculoskeletal Surgical History: Reports: None Oncologic Surgical History: Reports: None Dermatological Surgical History: Reports: None Social & Family History - Family History Family Medical History: No Pertinent Family History OBGYN: Reports: - Tobacco Use Tobacco Use Status *Q: Never Tobacco User - Caffeine Use Caffeine Use: Reports: None - Recreational Drug Use Recreational Drug Use: No H&P Review of Systems - Review of Systems: Review Of Systems: See Below General: Denies: Fever, Chills, Malaise Cardiovascular: Reports: Chest Pain. Denies: Palpitations, Dyspnea on Exertion Gastrointestinal: Denies: Abdominal Pain, Anorexia, Black Stool, Bloody Stool Genitourinary: Denies: Dysuria, Frequency, Burning Musculoskeletal: Reports: Back Pain. Denies: Neck Pain, Shoulder Pain, Arm Pain Skin: Denies: Cyanosis, Jaundice, Mottled, Pallor Psychiatric: Denies: Confusion, Depression Neurological: Denies: Confusion, Dizziness, Headache Exam - Exam Exam: See Below - Vital Signs Vital Signs: Last Vital Signs Temp 36.1 C 01/29/21 21:12 Pulse 69 01/29/21 21:12 Resp 16 01/29/21 21:12 BP 138/85 01/29/21 21:12 Pulse Ox 98 01/29/21 21:12 Weight: 67.132 kg - Exam Quality Assessment: Supplemental Oxygen General: Alert Neck: Supple Cardiovascular: Regular Rate, Regular Rhythm GI/Abdominal Exam: Normal Bowel Sounds, Soft Back Exam: Normal Inspection, Full Range of Motion. No: CVA Tenderness (L), CVA Tenderness (R) Extremities: Normal Inspection, Normal Range of Motion, Non-Tender, No Pedal Edema - Patient Data Lab Results Last 24 hrs: Laboratory Results - last 24 hr 01/29/21 01/29/21 01/29/21 Range/Units 17:20 17:20 17:20 WBC 10.10 (4.0-11.0) K/uL RBC 3.97 L (4.30-5.90) M/uL Hgb 10.6 L (12.0-16.0) g/dL Hct 33.8 L (36.0-46.0) % MCV 85.1 (80.0-98.0) fL MCH 26.7 L (27.0-32.0) pg MCHC 31.4 (31.0-37.0) g/dL RDW Std Deviation 50.0 (28.0-62.0) fl RDW Coeff of Conchita 16 H (11.0-15.0) % Plt Count 327 (150-400) K/uL MPV 10.30 (7.40-12.00) fL Neut % (Auto) 63.7 (48.0-80.0) % Lymph % (Auto) 25.2 (16.0-40.0) % [place] % (Auto) 9.2 (0.0-15.0) % Eos % (Auto) 1.5 (0.0-7.0) % Baso % (Auto) 0.4 (0.0-1.5) % Neut # (Auto) 6.4 H (1.4-5.7) K/uL Lymph # (Auto) 2.6 H (0.6-2.4) K/uL [place] # (Auto) 0.9 H (0.0-0.8) K/uL Eos # (Auto) 0.2 (0.0-0.7) K/uL Baso # (Auto) 0.0 (0.0-0.1) K/uL Nucleated RBC % 0.7 /100WBC Nucleated RBCs # 0 K/uL INR 0.94 Sodium 143 (136-145) mmol/L Potassium 3.4 L (3.5-5.1) mmol/L Chloride 107 (98-107) mmol/L Carbon Dioxide 22.2 (21.0-32.0) mmol/L BUN 11 (7.0-18.0) mg/dL Creatinine 0.7 (0.6-1.0) mg/dL Est Cr Clr Drug Dosing 100.55 mL/min Estimated GFR (MDRD) > 60.0 ml/min Glucose 79 (74-106) mg/dL Calcium 8.5 (8.5-10.1) mg/dL Total Bilirubin 0.3 (0.2-1.0) mg/dL AST 18 (15-37) IU/L ALT 26 (14-63) IU/L Alkaline Phosphatase 184 H (46-116) U/L Troponin I < 0.050 (0.000-0.056) ng/mL B-Natriuretic Peptide (<100) PG/ML Total Protein 6.9 (6.4-8.2) g/dL Albumin 2.7 L (3.4-5.0) g/dL Globulin 4.2 H (2.6-4.0) g/dL Albumin/Globulin Ratio 0.6 L (0.9-1.6) Urine Color Urine Appearance Urine pH (5.0-8.0) Ur Specific [place] (1.001-1.035) Urine Protein (NEGATIVE) mg/dL Urine Glucose (UA) (NEGATIVE) mg/dL Urine Ketones (NEGATIVE) mg/dL Urine Occult Blood (NEGATIVE) Urine Nitrite (NEGATIVE) Urine Bilirubin (NEGATIVE) Urine Urobilinogen (<2.0) EU/dL Ur Leukocyte Esterase (NEGATIVE) Urine RBC (0-2/HPF) Urine WBC (0-5/HPF) Ur Epithelial Cells (NONE-FEW) Urine Bacteria (NEGATIVE) SARS-CoV-2 RNA (SUNSHINE) (NEGATIVE) 01/29/21 01/29/21 01/29/21 Range/Units 17:20 20:05 20:33 WBC (4.0-11.0) K/uL RBC (4.30-5.90) M/uL Hgb (12.0-16.0) g/dL Hct (36.0-46.0) % MCV (80.0-98.0) fL MCH (27.0-32.0) pg MCHC (31.0-37.0) g/dL RDW Std Deviation (28.0-62.0) fl RDW Coeff of [place]chita (11.0-15.0) % Plt Count (150-400) K/uL MPV (7.40-12.00) fL Neut % (Auto) (48.0-80.0) % Lymph % (Auto) (16.0-40.0) % [place] % (Auto) (0.0-15.0) % Eos % (Auto) (0.0-7.0) % Baso % (Auto) (0.0-1.5) % Neut # (Auto) (1.4-5.7) K/uL Lymph # (Auto) (0.6-2.4) K/uL [place] # (Auto) (0.0-0.8) K/uL Eos # (Auto) (0.0-0.7) K/uL Baso # (Auto) (0.0-0.1) K/uL Nucleated RBC % /100WBC Nucleated RBCs # K/uL INR Sodium (136-145) mmol/L Potassium (3.5-5.1) mmol/L Chloride (98-107) mmol/L Carbon Dioxide (21.0-32.0) mmol/L BUN (7.0-18.0) mg/dL Creatinine (0.6-1.0) mg/dL Est Cr Clr Drug Dosing mL/min Estimated GFR (MDRD) ml/min Glucose (74-106) mg/dL Calcium (8.5-10.1) mg/dL Total Bilirubin (0.2-1.0) mg/dL AST (15-37) IU/L ALT (14-63) IU/L Alkaline Phosphatase (46-116) U/L Troponin I < 0.050 (0.000-0.056) ng/mL B-Natriuretic Peptide 218 H (<100) PG/ML Total Protein (6.4-8.2) g/dL Albumin (3.4-5.0) g/dL Globulin (2.6-4.0) g/dL Albumin/Globulin Ratio (0.9-1.6) Urine Color Urine Appearance Urine pH (5.0-8.0) Ur Specific [place] (1.001-1.035) Urine Protein (NEGATIVE) mg/dL Urine Glucose (UA) (NEGATIVE) mg/dL Urine Ketones (NEGATIVE) mg/dL Urine Occult Blood (NEGATIVE) Urine Nitrite (NEGATIVE) Urine Bilirubin (NEGATIVE) Urine Urobilinogen (<2.0) EU/dL Ur Leukocyte Esterase (NEGATIVE) Urine RBC (0-2/HPF) Urine WBC (0-5/HPF) Ur Epithelial Cells (NONE-FEW) Urine Bacteria (NEGATIVE) SARS-CoV-2 RNA (SUNSHINE) NEGATIVE (NEGATIVE) 01/29/21 Range/Units 20:46 WBC (4.0-11.0) K/uL RBC (4.30-5.90) M/uL Hgb (12.0-16.0) g/dL Hct (36.0-46.0) % MCV (80.0-98.0) fL MCH (27.0-32.0) pg MCHC (31.0-37.0) g/dL RDW Std Deviation (28.0-62.0) fl RDW Coeff of Conchita (11.0-15.0) % Plt Count (150-400) K/uL MPV (7.40-12.00) fL Neut % (Auto) (48.0-80.0) % Lymph % (Auto) (16.0-40.0) % [place] % (Auto) (0.0-15.0) % Eos % (Auto) (0.0-7.0) % Baso % (Auto) (0.0-1.5) % Neut # (Auto) (1.4-5.7) K/uL Lymph # (Auto) (0.6-2.4) K/uL [place] # (Auto) (0.0-0.8) K/uL Eos # (Auto) (0.0-0.7) K/uL Baso # (Auto) (0.0-0.1) K/uL Nucleated RBC % /100WBC Nucleated RBCs # K/uL INR Sodium (136-145) mmol/L Potassium (3.5-5.1) mmol/L Chloride (98-107) mmol/L Carbon Dioxide (21.0-32.0) mmol/L BUN (7.0-18.0) mg/dL Creatinine (0.6-1.0) mg/dL Est Cr Clr Drug Dosing mL/min Estimated GFR (MDRD) ml/min Glucose (74-106) mg/dL Calcium (8.5-10.1) mg/dL Total Bilirubin (0.2-1.0) mg/dL AST (15-37) IU/L ALT (14-63) IU/L Alkaline Phosphatase (46-116) U/L Troponin I (0.000-0.056) ng/mL B-Natriuretic Peptide (<100) PG/ML Total Protein (6.4-8.2) g/dL Albumin (3.4-5.0) g/dL Globulin (2.6-4.0) g/dL Albumin/Globulin Ratio (0.9-1.6) Urine Color YELLOW Urine Appearance HAZY Urine pH 6.0 (5.0-8.0) Ur Specific [place] 1.015 (1.001-1.035) Urine Protein TRACE H (NEGATIVE) mg/dL Urine Glucose (UA) NEGATIVE (NEGATIVE) mg/dL Urine Ketones TRACE H (NEGATIVE) mg/dL Urine Occult Blood LARGE H (NEGATIVE) Urine Nitrite NEGATIVE (NEGATIVE) Urine Bilirubin NEGATIVE (NEGATIVE) Urine Urobilinogen 1.0 (<2.0) EU/dL Ur Leukocyte Esterase SMALL H (NEGATIVE) Urine RBC 50-60 (0-2/HPF) Urine WBC 10-15 (0-5/HPF) Ur Epithelial Cells OCCASIONAL (NONE-FEW) Urine Bacteria FEW (NEGATIVE) SARS-CoV-2 RNA (SUNSHINE) (NEGATIVE) Result Diagrams: 01/29/21 17:20 01/29/21 17:20 Sepsis Event Note - Evaluation Sepsis Screening Result: No Definite Risk - Focused Exam Vital Signs: Vital Signs Temp Pulse Resp BP Pulse Ox 01/29/21 21:12 36.1 C 69 16 138/85 98 01/29/21 17:14 36.4 C 77 17 147/89 H 99 - Problem List (1) Chest pain SNOMED Code(s): 05379091 ICD Code: R07.9 - CHEST PAIN, UNSPECIFIED Status: Acute Current Visit: Yes (2) Pulmonary embolism SNOMED Code(s): 89515494 ICD Code: I26.99 - OTHER PULMONARY EMBOLISM WITHOUT ACUTE COR PULMONALE Status: Acute Current Visit: No (3) Twin , dichorionic/diamniotic, third trimester SNOMED Code(s): 297297629 ICD Code: O30.043 - TWIN , DICHORIONIC/DIAMNIOTIC, THIRD TRIMESTER Status: Acute Priority: High Current Visit: No (4) Anemia SNOMED Code(s): 255096575 ICD Code: D64.9 - ANEMIA, UNSPECIFIED Status: Resolved Current Visit: Yes Problem List Initiated/Reviewed/Updated: Yes Orders Last 24hrs: Active Orders 24 hr Category Date Time Status Admission Status [Patient Status] [ADT] Stat ADT 01/29/21 21:08 Active Ambulate [RC] ASDIRECTED Care 01/29/21 22:28 Active Cardiac Monitoring [RC] . DIRECTED Care 01/29/21 17:20 Active EKG Documentation Completion [RC] STAT Care 01/29/21 17:21 Active Oxygen Therapy [RC] PRN Care 01/29/21 22:29 Active Pulse Oximetry [RC] PRN Care 01/29/21 22:29 Active RT Aerosol Therapy [RC] ASDIRECTED Care 01/29/21 22:30 Active VTE/DVT Education [RC] PER UNIT ROUTINE Care 01/29/21 22:29 Active Vital Signs [RC] Q4H Care 01/29/21 22:29 Active Heart Healthy Diet [DIET] Diet 01/30/21 Breakfast Active Echo Comp wo Cont [US] Routine Exams 01/29/21 22:34 Ordered CULTURE URINE [RM] Stat Lab 01/29/21 20:46 Received GLYCOSYLATED HEMOGLOBIN,HGBA1C [CHEM] Routine Lab 01/29/21 22:36 Ordered IRON/TIBC [CHEM] Routine Lab 01/29/21 22:31 Ordered TROPONIN I [CHEM] Routine Lab 01/29/21 23:30 Ordered Acetaminophen [TylenoL] Med 01/29/21 22:28 Active 650 mg PO Q4H PRN Albuterol/Ipratropium [DuoNeb 3.0-0.5 MG/3 ML] Med 01/29/21 22:28 Active 3 ml NEB Q4HRRT PRN Enoxaparin [Lovenox] Med 01/29/21 22:30 Active 40 mg SUBCUT Q24H Sodium Chloride 0.9% [Saline Flush] Med 01/29/21 17:20 Active 10 ml FLUSH ASDIRECTED PRN Sodium Chloride 0.9% [Saline Flush] Med 01/29/21 17:20 Active 2.5 ml FLUSH ASDIRECTED PRN Saline Lock Insert [OM.PC] Stat Oth 01/29/21 17:20 Ordered Resuscitation Status Routine Resus Stat 01/29/21 22:28 Ordered Medication Orders Acetaminophen (Tylenol) 650 mg PO Q4H PRN PRN Reason: Pain (Mild 1-3)/fever Albuterol/Ipratropium (Duoneb 3.0-0.5 Mg/3 Ml) 3 ml NEB Q4HRRT PRN PRN Reason: Shortness Of Breath/wheezing Enoxaparin Sodium (Lovenox) 40 mg SUBCUT Q24H MAE Sodium Chloride (Saline Flush) 10 ml FLUSH ASDIRECTED PRN PRN Reason: Keep Vein Open Last Admin: 01/29/21 17:39 Dose: 10 ml Documented by: SUSAN Sodium Chloride (Saline Flush) 2.5 ml FLUSH ASDIRECTED PRN PRN Reason: Keep Vein Open Last Admin: 01/29/21 17:39 Dose: 2.5 ml Documented by: SUSAN Assessment/Plan Comment:: 30 y/o F admitted for chest pain CTA noted Trend troponin Check HbA1c given h/o gestational DM Check Iron profile secondary to anemia 20 mg Lasix IV given small effusion, cardiomegaly and high BNP Cardiac diet Resume Lovenox obtain 2D ECHO UA noted, IV Rocephin, f/u on culture
[2021-01-29 23:50] LABS: HEMOGLOBIN A1C 5.5 %
[2021-01-30] MEDS ORDERED: cefTRIAXone 1 GM in Premix Bag 1 BAG IV SCH (00:30)
[2021-01-30 06:52] LABS: BLOOD UREA NITROGEN,BUN 10 mg/dL (7.0-18.0); CARBON DIOXIDE,CO2 23.5 mmol/L (21.0-32.0); CHLORIDE,CL 106 mmol/L (98-107); GLUCOSE RANDOM 67 mg/dL (74-106); POTASSIUM,K 3.5 mmol/L (3.5-5.1); SODIUM,NA 142 mmol/L (136-145)
[2021-01-30 07:58] VITALS: BP 120/87; PULSE 74
[2021-01-30] MEDS ORDERED: Iron Polysaccharides Complex 150 MG Cap PO SCH (09:00)
--- NOTE | 2021-01-30 10:34 | PCM.DCSUM1 ---
Discharge Summary - Hospital Course Brief History: 30-year-old female history of pulmonary embolism diagnosed on january 2020 on lovenox, HTN, Cardiomegaly, Diet controlled gestational DM, Twin s/p on 01/24, anemia comes in to the ER with pleuritic dyspnea and upper back pain that started today. She denies hemoptysis, fever, chills, chest pain, vaginal bleeding or clots. She does admit to a dry cough. Labs were grossly unremarkable , except for high BNP, elevated Alk phos, and anemia. CT angiogram was obtained given patient h/o PE and presentation, study showed poor opacification of right lower lobe pulmonary artery favoring RESIDUAL CHRONIC THROMBUS from prior occlusive PE, however superimposed small PE couldn't be excluded, there was also irregular nodular opacity in posterior and right CP angle decreased from prior may represent residual changes fro PE. 6-[address] was recommended by radiology b/l small pleural effusions, stable cardiomegaly. Troponin was negative, Patient was admitted for further work up. Diagnosis: Stroke: No - Discharge Data Discharge Date: 01/30/21 Discharge Disposition: Home, Self-Care 01 Condition: Good - Referral to Home Health Primary Care Physician: Juventino Westfall MD - Discharge Diagnosis/Problem(s) (1) Cardiomegaly SNOMED Code(s): 5402344 ICD Code: I51.7 - CARDIOMEGALY Status: Acute (2) Chest pain SNOMED Code(s): 54740253 ICD Code: R07.9 - CHEST PAIN, UNSPECIFIED Status: Acute (3) Pulmonary embolism SNOMED Code(s): 34857759 ICD Code: I26.99 - OTHER PULMONARY EMBOLISM WITHOUT ACUTE COR PULMONALE Status: Acute - Patient Summary/Data Hospital Course: Admission diagnoses Pleuritic chest pain Cardiomegaly History of PE with possible new PE Discharge diagnoses Pleuritic chest pain Cardiomegaly History of PE with possible new PE Jami was admitted secondary to some pleuritic chest pain. Telemetry was monitored along with troponins which remained negative. Today she is feeling much better she does have some mild right upper back flank pain which could be residual pain and inflammation from chronic PE which is healing. CTA showed chronic residual PE along with possibility of new PE. She has been on Lovenox since giving to her twins on 01/24/2021. She is not breast feeding. She is okay with transitioning back to Eliquis like she was on prior to becoming . We initially ordered Eliquis to be started but pharmacy and her insurance rejected this. We will start her on Xarelto 15 mg twice daily for 21 days and then 20 mg daily after that. PCP and cardiology can determine length of treatment, at this point she may need lifelong treatment. Echo returned after patient was discharged. EF noted at 65 to 70% normal left ventricular systolic function no evidence of left ventricular hypertrophy. Normal pattern of LV diastolic filling normal right ventricular systolic function mild mitral valve regurgitation trace aortic valve regurgitation mild tricuspid valve regurgitation mild to moderate pulmonary valve regurgitation. The right ventricular systolic pressure is normal at 25.3 and no regional wall abnormalities were noted. Will fax this to cardiology as well as PCP further review as well as informing patient. Patient had been discharged prior to rejection of Eliquis prescription. She was telephoned and instructed on Xarelto dosing along with why we had to change the medication. She was appreciative and verbalized understanding of this change. She is to continue follow-up as previous. UTI was noted on admission treated with Rocephin. She will continue with 4 more days of Keflex. She is return to the ER clinic if concerns should arise sooner than follow-up appointments. - Patient Instructions Diet: Regular Diet as Tolerated Activity: No Strenuous Activities Driving: Do Not Drive Showering/Bathing: May Shower Notify Provider of: Fever, Increased Pain, Swelling and Redness, Drainage, Nausea and/or Vomiting - Discharge Plan *PRESCRIPTION DRUG MONITORING PROGRAM REVIEWED*: Not Applicable *COPY OF PRESCRIPTION DRUG MONITORING REPORT IN PATIENT MADELYN: Not Applicable Prescriptions/Med Rec: cephALEXin [Keflex] 500 mg PO Q12H #8 cap Rivaroxaban [Xarelto] 15 mg PO BID #42 tab Rivaroxaban [Xarelto] 20 mg PO DAILY #30 tablet Home Medications: Home Meds Iron Polysaccharides Complex [Ferrex 150] 150 mg PO DAILY #30 cap 01/26/21 [Rx] Rivaroxaban [Xarelto] 15 mg PO BID #42 tab 01/30/21 [Rx] Rivaroxaban [Xarelto] 20 mg PO DAILY #30 tablet 01/30/21 [Rx] cephALEXin [Keflex] 500 mg PO Q12H #8 cap 01/30/21 [Rx] Oxygen Therapy Mode: Room Air Patient Handouts: Nonspecific Chest Pain, Adult, [id number], Cephalexin Tablets or Capsules, Apixaban oral tablets Referrals: Rayne Alcantar MD [Physician] - 04/01/21 3:00 pm Juventino Westfall MD [Primary Care Provider] - 02/10/21 1:00 pm - Discharge Summary/Plan Comment DC Time >30 min.: No - Patient Data Vitals - Most Recent: Last Vital Signs Temp 97.7 F 01/30/21 07:57 Pulse 74 01/30/21 07:57 Resp 15 01/30/21 07:57 BP 120/87 01/30/21 07:57 Pulse Ox 99 01/30/21 07:57 Weight - Most Recent: 65.091 kg I&O - Last 24 hours: Intake & Output 01/29/21 01/30/21 01/30/21 22:59 06:59 14:59 Intake Total 100 Output Total 0 Balance 100 Lab Results - Last 24 hrs: Laboratory Results - last 24 hr 01/29/21 01/29/21 01/29/21 Range/Units 03:36 03:36 17:20 WBC 10.10 (4.0-11.0) K/uL RBC 3.97 L (4.30-5.90) M/uL Hgb 10.6 L (12.0-16.0) g/dL Hct 33.8 L (36.0-46.0) % MCV 85.1 (80.0-98.0) fL MCH 26.7 L (27.0-32.0) pg MCHC 31.4 (31.0-37.0) g/dL RDW Std Deviation 50.0 (28.0-62.0) fl RDW Coeff of Conchita 16 H (11.0-15.0) % Plt Count 327 (150-400) K/uL MPV 10.30 (7.40-12.00) fL Neut % (Auto) 63.7 (48.0-80.0) % Lymph % (Auto) 25.2 (16.0-40.0) % [place] % (Auto) 9.2 (0.0-15.0) % Eos % (Auto) 1.5 (0.0-7.0) % Baso % (Auto) 0.4 (0.0-1.5) % Neut # (Auto) 6.4 H (1.4-5.7) K/uL Lymph # (Auto) 2.6 H (0.6-2.4) K/uL [place] # (Auto) 0.9 H (0.0-0.8) K/uL Eos # (Auto) 0.2 (0.0-0.7) K/uL Baso # (Auto) 0.0 (0.0-0.1) K/uL Nucleated RBC % 0.7 /100WBC Nucleated RBCs # 0 K/uL INR Sodium (136-145) mmol/L Potassium (3.5-5.1) mmol/L Chloride (98-107) mmol/L Carbon Dioxide (21.0-32.0) mmol/L BUN (7.0-18.0) mg/dL Creatinine (0.6-1.0) mg/dL Est Cr Clr Drug Dosing mL/min Estimated GFR (MDRD) ml/min Glucose (74-106) mg/dL Hemoglobin A1c 5.5 (4.5 - 6.2) % Calcium (8.5-10.1) mg/dL Iron (50-175) ug/dL TIBC (250-450) ug/dL % Saturation (20-55) % Total Bilirubin (0.2-1.0) mg/dL AST (15-37) IU/L ALT (14-63) IU/L Alkaline Phosphatase (46-116) U/L Troponin I < 0.050 (0.000-0.056) ng/mL B-Natriuretic Peptide (<100) PG/ML Total Protein (6.4-8.2) g/dL Albumin (3.4-5.0) g/dL Globulin (2.6-4.0) g/dL Albumin/Globulin Ratio (0.9-1.6) Urine Color Urine Appearance Urine pH (5.0-8.0) Ur Specific [place] (1.001-1.035) Urine Protein (NEGATIVE) mg/dL Urine Glucose (UA) (NEGATIVE) mg/dL Urine Ketones (NEGATIVE) mg/dL Urine Occult Blood (NEGATIVE) Urine Nitrite (NEGATIVE) Urine Bilirubin (NEGATIVE) Urine Urobilinogen (<2.0) EU/dL Ur Leukocyte Esterase (NEGATIVE) Urine RBC (0-2/HPF) Urine WBC (0-5/HPF) Ur Epithelial Cells (NONE-FEW) Urine Bacteria (NEGATIVE) SARS-CoV-2 RNA (SUNSHINE) (NEGATIVE) 01/29/21 01/29/21 01/29/21 Range/Units 17:20 17:20 17:20 WBC (4.0-11.0) K/uL RBC (4.30-5.90) M/uL Hgb (12.0-16.0) g/dL Hct (36.0-46.0) % MCV (80.0-98.0) fL MCH (27.0-32.0) pg MCHC (31.0-37.0) g/dL RDW Std Deviation (28.0-62.0) fl RDW Coeff of Conchita (11.0-15.0) % Plt Count (150-400) K/uL MPV (7.40-12.00) fL Neut % (Auto) (48.0-80.0) % Lymph % (Auto) (16.0-40.0) % [place] % (Auto) (0.0-15.0) % Eos % (Auto) (0.0-7.0) % Baso % (Auto) (0.0-1.5) % Neut # (Auto) (1.4-5.7) K/uL Lymph # (Auto) (0.6-2.4) K/uL [place] # (Auto) (0.0-0.8) K/uL Eos # (Auto) (0.0-0.7) K/uL Baso # (Auto) (0.0-0.1) K/uL Nucleated RBC % /100WBC Nucleated RBCs # K/uL INR 0.94 Sodium 143 (136-145) mmol/L Potassium 3.4 L (3.5-5.1) mmol/L Chloride 107 (98-107) mmol/L Carbon Dioxide 22.2 (21.0-32.0) mmol/L BUN 11 (7.0-18.0) mg/dL Creatinine 0.7 (0.6-1.0) mg/dL Est Cr Clr Drug Dosing 100.55 mL/min Estimated GFR (MDRD) > 60.0 ml/min Glucose 79 (74-106) mg/dL Hemoglobin A1c (4.5 - 6.2) % Calcium 8.5 (8.5-10.1) mg/dL Iron (50-175) ug/dL TIBC (250-450) ug/dL % Saturation (20-55) % Total Bilirubin 0.3 (0.2-1.0) mg/dL AST 18 (15-37) IU/L ALT 26 (14-63) IU/L Alkaline Phosphatase 184 H (46-116) U/L Troponin I < 0.050 (0.000-0.056) ng/mL B-Natriuretic Peptide 218 H (<100) PG/ML Total Protein 6.9 (6.4-8.2) g/dL Albumin 2.7 L (3.4-5.0) g/dL Globulin 4.2 H (2.6-4.0) g/dL Albumin/Globulin Ratio 0.6 L (0.9-1.6) Urine Color Urine Appearance Urine pH (5.0-8.0) Ur Specific [place] (1.001-1.035) Urine Protein (NEGATIVE) mg/dL Urine Glucose (UA) (NEGATIVE) mg/dL Urine Ketones (NEGATIVE) mg/dL Urine Occult Blood (NEGATIVE) Urine Nitrite (NEGATIVE) Urine Bilirubin (NEGATIVE) Urine Urobilinogen (<2.0) EU/dL Ur Leukocyte Esterase (NEGATIVE) Urine RBC (0-2/HPF) Urine WBC (0-5/HPF) Ur Epithelial Cells (NONE-FEW) Urine Bacteria (NEGATIVE) SARS-CoV-2 RNA (SUNSHINE) (NEGATIVE) 01/29/21 01/29/21 01/29/21 Range/Units 17:20 20:05 20:33 WBC (4.0-11.0) K/uL RBC (4.30-5.90) M/uL Hgb (12.0-16.0) g/dL Hct (36.0-46.0) % MCV (80.0-98.0) fL MCH (27.0-32.0) pg MCHC (31.0-37.0) g/dL RDW Std Deviation (28.0-62.0) fl RDW Coeff of Conchita (11.0-15.0) % Plt Count (150-400) K/uL MPV (7.40-12.00) fL Neut % (Auto) (48.0-80.0) % Lymph % (Auto) (16.0-40.0) % [place] % (Auto) (0.0-15.0) % Eos % (Auto) (0.0-7.0) % Baso % (Auto) (0.0-1.5) % Neut # (Auto) (1.4-5.7) K/uL Lymph # (Auto) (0.6-2.4) K/uL [place] # (Auto) (0.0-0.8) K/uL Eos # (Auto) (0.0-0.7) K/uL Baso # (Auto) (0.0-0.1) K/uL Nucleated RBC % /100WBC Nucleated RBCs # K/uL INR Sodium (136-145) mmol/L Potassium (3.5-5.1) mmol/L Chloride (98-107) mmol/L Carbon Dioxide (21.0-32.0) mmol/L BUN (7.0-18.0) mg/dL Creatinine (0.6-1.0) mg/dL Est Cr Clr Drug Dosing mL/min Estimated GFR (MDRD) ml/min Glucose (74-106) mg/dL Hemoglobin A1c (4.5 - 6.2) % Calcium (8.5-10.1) mg/dL Iron 37 L (50-175) ug/dL TIBC 478 H (250-450) ug/dL % Saturation 7.74 L (20-55) % Total Bilirubin (0.2-1.0) mg/dL AST (15-37) IU/L ALT (14-63) IU/L Alkaline Phosphatase (46-116) U/L Troponin I < 0.050 (0.000-0.056) ng/mL B-Natriuretic Peptide (<100) PG/ML Total Protein (6.4-8.2) g/dL Albumin (3.4-5.0) g/dL Globulin (2.6-4.0) g/dL Albumin/Globulin Ratio (0.9-1.6) Urine Color Urine Appearance Urine pH (5.0-8.0) Ur Specific [place] (1.001-1.035) Urine Protein (NEGATIVE) mg/dL Urine Glucose (UA) (NEGATIVE) mg/dL Urine Ketones (NEGATIVE) mg/dL Urine Occult Blood (NEGATIVE) Urine Nitrite (NEGATIVE) Urine Bilirubin (NEGATIVE) Urine Urobilinogen (<2.0) EU/dL Ur Leukocyte Esterase (NEGATIVE) Urine RBC (0-2/HPF) Urine WBC (0-5/HPF) Ur Epithelial Cells (NONE-FEW) Urine Bacteria (NEGATIVE) SARS-CoV-2 RNA (SUNSHINE) NEGATIVE (NEGATIVE) 01/29/21 01/30/21 01/30/21 Range/Units 20:46 05:04 05:04 WBC 9.49 (4.0-11.0) K/uL RBC 4.04 L (4.30-5.90) M/uL Hgb 10.7 L (12.0-16.0) g/dL Hct 34.5 L (36.0-46.0) % MCV 85.4 (80.0-98.0) fL MCH 26.5 L (27.0-32.0) pg MCHC 31.0 (31.0-37.0) g/dL RDW Std Deviation 50.5 (28.0-62.0) fl RDW Coeff of Conchita 17 H (11.0-15.0) % Plt Count 363 (150-400) K/uL MPV 10.40 (7.40-12.00) fL Neut % (Auto) 60.6 (48.0-80.0) % Lymph % (Auto) 29.4 (16.0-40.0) % [place] % (Auto) 8.5 (0.0-15.0) % Eos % (Auto) 1.3 (0.0-7.0) % Baso % (Auto) 0.2 (0.0-1.5) % Neut # (Auto) 5.8 H (1.4-5.7) K/uL Lymph # (Auto) 2.8 H (0.6-2.4) K/uL [place] # (Auto) 0.8 (0.0-0.8) K/uL Eos # (Auto) 0.1 (0.0-0.7) K/uL Baso # (Auto) 0.0 (0.0-0.1) K/uL Nucleated RBC % 0.6 /100WBC Nucleated RBCs # 0 K/uL INR Sodium 142 (136-145) mmol/L Potassium 3.5 (3.5-5.1) mmol/L Chloride 106 (98-107) mmol/L Carbon Dioxide 23.5 (21.0-32.0) mmol/L BUN 10 (7.0-18.0) mg/dL Creatinine 0.7 (0.6-1.0) mg/dL Est Cr Clr Drug Dosing 100.55 mL/min Estimated GFR (MDRD) > 60.0 ml/min Glucose 67 L (74-106) mg/dL Hemoglobin A1c (4.5 - 6.2) % Calcium 8.5 (8.5-10.1) mg/dL Iron (50-175) ug/dL TIBC (250-450) ug/dL % Saturation (20-55) % Total Bilirubin (0.2-1.0) mg/dL AST (15-37) IU/L ALT (14-63) IU/L Alkaline Phosphatase (46-116) U/L Troponin I (0.000-0.056) ng/mL B-Natriuretic Peptide (<100) PG/ML Total Protein (6.4-8.2) g/dL Albumin (3.4-5.0) g/dL Globulin (2.6-4.0) g/dL Albumin/Globulin Ratio (0.9-1.6) Urine Color YELLOW Urine Appearance HAZY Urine pH 6.0 (5.0-8.0) Ur Specific [place] 1.015 (1.001-1.035) Urine Protein TRACE H (NEGATIVE) mg/dL Urine Glucose (UA) NEGATIVE (NEGATIVE) mg/dL Urine Ketones TRACE H (NEGATIVE) mg/dL Urine Occult Blood LARGE H (NEGATIVE) Urine Nitrite NEGATIVE (NEGATIVE) Urine Bilirubin NEGATIVE (NEGATIVE) Urine Urobilinogen 1.0 (<2.0) EU/dL Ur Leukocyte Esterase SMALL H (NEGATIVE) Urine RBC 50-60 (0-2/HPF) Urine WBC 10-15 (0-5/HPF) Ur Epithelial Cells OCCASIONAL (NONE-FEW) Urine Bacteria FEW (NEGATIVE) SARS-CoV-2 RNA (SUNSHINE) (NEGATIVE) Med Orders - Current: Current Medications Acetaminophen (Tylenol) 650 mg PO Q4H PRN PRN Reason: Pain (Mild 1-3)/fever Last Admin: 01/30/21 09:55 Dose: 650 mg Documented by: Albuterol/Ipratropium (Duoneb 3.0-0.5 Mg/3 Ml) 3 ml NEB Q4HRRT PRN PRN Reason: Shortness Of Breath/wheezing Enoxaparin Sodium (Lovenox) 40 mg SUBCUT Q24H [facility] Last Admin: 01/29/21 22:44 Dose: 40 mg Documented by: Ceftriaxone Sodium/Dextrose 1 (gm/ Premix) 50 mls @ 100 mls/hr IV Q24H [facility] Last Admin: 01/30/21 01:51 Dose: 100 mls/hr Documented by: Polysaccharide Iron Complex (Ferrex 150) 150 mg PO DAILY [facility] Last Admin: 01/30/21 09:55 Dose: 150 mg Documented by: Sodium Chloride (Saline Flush) 10 ml FLUSH ASDIRECTED PRN PRN Reason: Keep Vein Open Last Admin: 01/29/21 17:39 Dose: 10 ml Documented by: Sodium Chloride (Saline Flush) 2.5 ml FLUSH ASDIRECTED PRN PRN Reason: Keep Vein Open Last Admin: 01/29/21 17:39 Dose: 2.5 ml Documented by: Discontinued Medications Furosemide (Lasix) 20 mg IVPUSH ONETIME ONE Stop: 01/29/21 22:35 Last Admin: 01/29/21 22:46 Dose: 20 mg Documented by: Iopamidol (Isovue-370 (76%)) 50 ml IVPUSH ONETIME STA Stop: 01/29/21 19:11 Last Admin: 01/29/21 19:11 Dose: 50 ml Documented by: Potassium Chloride (Klor-Con M20) 40 meq PO ONETIME ONE Stop: 01/29/21 22:38 Last Admin: 01/29/21 22:44 Dose: 40 meq Documented by:
[2021-01-30] MEDS ORDERED: Apixaban 5 MG Tab PO ONE (10:45)
--- NOTE | 2021-01-31 15:05 | US ---
The ECHO report has been scanned into [facility] and can be seen in this patient's EMR (Electronic Medical Record) under the REPORTS section. The report has also been scanned into PACS. RAVINDER
== END 2021-01-30 11:01 | disposition home or self-care (01) ==
LOC: MW.ED 16:44 → MW.MS 21:08
PROVIDERS: ADMIT Student in an Organized Health Care Education/Training Program; ATTEND Student in an Organized Health Care Education/Training Program
DX: O99.893 Other specified diseases and conditions complicating puerperium (principal); R07.81 Pleurodynia; I51.7 Cardiomegaly; O10.93 Unspecified pre-existing hypertension complicating the puerperium; O90.81 Anemia of the puerperium; J90 Pleural effusion, not elsewhere classified; R91.8 Other nonspecific abnormal finding of lung field; Z86.711 Personal history of pulmonary embolism; Z20.822 Contact with and (suspected) exposure to COVID-19; Z79.01 Long term (current) use of anticoagulants; Z79.899 Other long term (current) drug therapy; Z98.890 Other specified postprocedural states
CPT/HCPCS: 36415; 71275; 80048; 80053; 81001; 83036; 83550; 83880; 84484; 85025; 85610; 87086; 87635; 93005; 93306; 96372; 96374; 99285; A9270; J0696; J1650; J1940; Q9967; 93010; 99217; 99219; 99284; U0002

== ENCOUNTER 2021-11-27 05:50 | Observation (INO) | payer MEDICAID ==
--- NOTE | 2021-11-27 06:16 | EDM.PDOC ---
<John Jimenez - Last Filed: 11/27/21 06:14> ED HPI GENERAL MEDICAL PROBLEM - General Chief Complaint: Genitourinary Problem Stated Complaint: SHARP ABDOMINAL PAIN Time Seen by Provider: 11/27/21 05:52 - History of Present Illness INITIAL COMMENTS - FREE TEXT/NARRATIVE: 31-year-old female with a history of pulmonary embolism currently on Xarelto presents with increased urinary frequency and nonradiating sharp suprapubic pain that started around 10 hours ago. Some chills but no documented fevers. No back or flank pain. No nausea or vomiting. Patient thought maybe she needed to have a bowel movement it was quite hard so she took a stool softener but it is not changed her symptoms. She denies vaginal bleeding or discharge her last menstrual period ended on November 09 and was normal for her. She denies dysuria or hematuria but endorses urinary frequency. 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: Musculoskeletal History: Reports: None Neurological History: Reports: None Psychiatric History: Reports: None Endocrine/Metabolic History: Reports: Diabetes, Gestational Hematologic History: Reports: Anticoagulation Therapy Immunologic History: Reports: None Oncologic (Cancer) History: Reports: None Dermatologic History: Reports: None - Infectious Disease History Infectious Disease History: Reports: None - Past Surgical History Head Surgeries/Procedures: Reports: None HEENT Surgical History: Reports: None Cardiovascular Surgical History: Reports: None Respiratory Surgical History: Reports: None GI Surgical History: Reports: None Female Surgical History: Reports: None Endocrine Surgical History: Reports: None Neurological Surgical History: Reports: None Musculoskeletal Surgical History: Reports: None Oncologic Surgical History: Reports: None Dermatological Surgical History: Reports: None Social & Family History - Family History Family Medical History: No Pertinent Family History OBGYN: Reports: - Caffeine Use Caffeine Use: Reports: Soda ED ROS GENERAL - Review of Systems Review Of Systems: See Below Free Text/Narrative/Comment: General: No fever. Skin: No rash. Eyes: No vision problems. ENT: No sore throat. Neck: No neck stiffness. Respiratory: No shortness of breath. Cardiac: No chest pain. Gastrointestinal: Per HPI Urinary: Per HPI Musculoskeletal: No myalgias/arthralgias. Neurologic: No headache. ED EXAM, GENERAL - Physical Exam Exam: See Below Free Text/Narrative:: General Appearance: No acute distress, appears comfortable HEENT: Normocephalic/atraumatic, sclera anicteric, mucous membranes moist Neck: Normal range of motion Chest and Lungs: Bilateral breath sounds, clear to auscultation Cardiovascular: Regular rate and rhythm Abdomen: Soft, mild suprapubic tenderness without guarding or rebound Musculoskeletal: No edema or tenderness Neurologic: Awake, alert, no obvious deficits, moving all extremities Psychiatric: Appropriate, cooperative Departure - Departure Disposition: Refer to Observation Clinical Impression: Internal bleeding, On rivaroxaban therapy, Ovarian mass - Discharge Information Referrals: Juventino Westfall MD [Primary Care Provider] - Forms: ED Department Discharge Sepsis Event Note (ED) - Evaluation Sepsis Screening Result: No Definite Risk - Assessment/Plan Assessment:: 31-year-old female presenting with signs and symptoms that are most consistent with a urinary tract infection. Patient is without periumbilical or right lower quadrant tenderness ovarian pathology considered but the pain is not severe and it is not unilateral so ovarian torsion is felt excluded. There is no vaginal bleeding or discharge that would suggest acute gynecologic infection. Urine and urinalysis are pending. If urinalysis is consistent with a UTI and I would not put the patient through additional testing at this point. She is young and otherwise well and would be appropriate for outpatient management. Post void residual is pending as well. If urinalysis is not consistent with UTI then could consider additional testing at that point. <Papa Cha - Last Filed: 11/27/21 13:00> Course - Vital Signs Last Recorded V/S: Last Vital Signs Temp 36.0 C L 11/27/21 06:08 Pulse 89 11/27/21 11:10 Resp 16 11/27/21 11:10 BP 128/77 11/27/21 11:10 Pulse Ox 100 11/27/21 11:10 - Orders/Labs/Meds Orders: Active Orders 24 hr Category Date Time Status Admission Status [Patient Status] [ADT] Stat ADT 11/27/21 12:55 Ordered Pelvis Non OB Ltd [US] Stat Exams 11/27/21 10:59 Taken Ondansetron [Zofran] Med 11/27/21 12:57 Once 4 mg IVPUSH ONETIME ONE Sodium Chloride 0.9% [Saline Flush] Med 11/27/21 09:33 Active 10 ml FLUSH ASDIRECTED PRN Sodium Chloride 0.9% [Saline Flush] Med 11/27/21 09:33 Active 2.5 ml FLUSH ASDIRECTED PRN fentaNYL Med 11/27/21 12:57 Once 50 mcg IVPUSH ONETIME ONE Saline Lock Insert [OM.PC] Stat Oth 11/27/21 09:33 Ordered Medication Orders Sodium Chloride (Sodium Chloride 0.9% 10 Ml Syringe) 10 ml FLUSH ASDIRECTED PRN PRN Reason: Keep Vein Open Last Admin: 11/27/21 09:41 Dose: 10 ml Documented by: CARLOS EDUARDO Sodium Chloride (Sodium Chloride 0.9% 2.5 Ml Syringe) 2.5 ml FLUSH ASDIRECTED PRN PRN Reason: Keep Vein Open Last Admin: 11/27/21 09:41 Dose: 2.5 ml Documented by: CARLOS EDUARDO Labs: Laboratory Tests 11/27/21 11/27/21 11/27/21 Range/Units 08:25 08:25 09:45 WBC 10.92 (4.0-11.0) K/uL RBC 4.30 (4.30-5.90) M/uL Hgb 12.0 (12.0-16.0) g/dL Hct 36.4 (36.0-46.0) % MCV 84.7 (80.0-98.0) fL MCH 27.9 (27.0-32.0) pg MCHC 33.0 (31.0-37.0) g/dL RDW Std Deviation 43.6 (28.0-62.0) fl RDW Coeff of Conchita 14 (11.0-15.0) % Plt Count 333 (150-400) K/uL MPV 10.50 (7.40-12.00) fL Add Manual Diff YES Neutrophils % (Manual) 70 (48.0-80.0) % Lymphocytes % (Manual) 27 (16.0-40.0) % Monocytes % (Manual) 3 (0.0-15.0) % Nucleated RBC % 0.0 /100WBC Absolute Seg Neuts 7.6 H (1.4-5.7) Lymphocytes # (Manual) 2.9 H (0.6-2.4) Monocytes # (Manual) 0.3 (0.0-0.8) Nucleated RBCs # 0 K/uL Sodium (136-145) mmol/L Potassium (3.5-5.1) mmol/L Chloride (98-107) mmol/L Carbon Dioxide (21.0-32.0) mmol/L BUN (7.0-18.0) mg/dL Creatinine (0.6-1.0) mg/dL Est Cr Clr Drug Dosing mL/min Estimated GFR (MDRD) ml/min Glucose (74-106) mg/dL Calcium (8.5-10.1) mg/dL Total Bilirubin (0.2-1.0) mg/dL AST (15-37) IU/L ALT (14-63) IU/L Alkaline Phosphatase (46-116) U/L Total Protein (6.4-8.2) g/dL Albumin (3.4-5.0) g/dL Globulin (2.6-4.0) g/dL Albumin/Globulin Ratio (0.9-1.6) Lipase (73-393) U/L Urine Color YELLOW Urine Appearance CLEAR Urine pH 5.5 (5.0-8.0) Ur Specific [place] >= 1.030 (1.001-1.035) Urine Protein NEGATIVE (NEGATIVE) mg/dL Urine Glucose (UA) NEGATIVE (NEGATIVE) mg/dL Urine Ketones NEGATIVE (NEGATIVE) mg/dL Urine Occult Blood NEGATIVE (NEGATIVE) Urine Nitrite NEGATIVE (NEGATIVE) Urine Bilirubin NEGATIVE (NEGATIVE) Urine Urobilinogen 0.2 (<2.0) EU/dL Ur Leukocyte Esterase NEGATIVE (NEGATIVE) Urine RBC NONE SEEN (0-2/HPF) Urine WBC NONE SEEN (0-5/HPF) Ur Epithelial Cells RARE (NONE-FEW) Amorphous Sediment MODERATE (NEGATIVE) Urine Bacteria RARE (NEGATIVE) Urine HCG, Qual NEGATIVE (NEGATIVE) SARS-CoV-2 RNA (SUNSHINE) (NEGATIVE) Blood Type Antibody Screen 11/27/21 11/27/21 11/27/21 Range/Units 09:45 11:12 11:39 WBC (4.0-11.0) K/uL RBC (4.30-5.90) M/uL Hgb (12.0-16.0) g/dL Hct (36.0-46.0) % MCV (80.0-98.0) fL MCH (27.0-32.0) pg MCHC (31.0-37.0) g/dL RDW Std Deviation (28.0-62.0) fl RDW Coeff of Conchita (11.0-15.0) % Plt Count (150-400) K/uL MPV (7.40-12.00) fL Add Manual Diff Neutrophils % (Manual) (48.0-80.0) % Lymphocytes % (Manual) (16.0-40.0) % Monocytes % (Manual) (0.0-15.0) % Nucleated RBC % /100WBC Absolute Seg Neuts (1.4-5.7) Lymphocytes # (Manual) (0.6-2.4) Monocytes # (Manual) (0.0-0.8) Nucleated RBCs # K/uL Sodium 135 L (136-145) mmol/L Potassium 4.0 (3.5-5.1) mmol/L Chloride 102 (98-107) mmol/L Carbon Dioxide 24.7 (21.0-32.0) mmol/L BUN 13 (7.0-18.0) mg/dL Creatinine 0.6 (0.6-1.0) mg/dL Est Cr Clr Drug Dosing 111.35 mL/min Estimated GFR (MDRD) > 60.0 ml/min Glucose 100 (74-106) mg/dL Calcium 9.1 (8.5-10.1) mg/dL Total Bilirubin 0.3 (0.2-1.0) mg/dL AST 18 (15-37) IU/L ALT 15 (14-63) IU/L Alkaline Phosphatase 69 (46-116) U/L Total Protein 7.7 (6.4-8.2) g/dL Albumin 3.9 (3.4-5.0) g/dL Globulin 3.8 (2.6-4.0) g/dL Albumin/Globulin Ratio 1.0 (0.9-1.6) Lipase 91 (73-393) U/L Urine Color Urine Appearance Urine pH (5.0-8.0) Ur Specific [place] (1.001-1.035) Urine Protein (NEGATIVE) mg/dL Urine Glucose (UA) (NEGATIVE) mg/dL Urine Ketones (NEGATIVE) mg/dL Urine Occult Blood (NEGATIVE) Urine Nitrite (NEGATIVE) Urine Bilirubin (NEGATIVE) Urine Urobilinogen (<2.0) EU/dL Ur Leukocyte Esterase (NEGATIVE) Urine RBC (0-2/HPF) Urine WBC (0-5/HPF) Ur Epithelial Cells (NONE-FEW) Amorphous Sediment (NEGATIVE) Urine Bacteria (NEGATIVE) Urine HCG, Qual (NEGATIVE) SARS-CoV-2 RNA (SUNSHINE) NEGATIVE (NEGATIVE) Blood Type A POSITIVE Antibody Screen NEGATIVE Meds: Medications Generic Name Dose Route Start Last Admin Trade Name Freq PRN Reason Stop Dose Admin Sodium Chloride 10 ml 11/27/21 09:33 11/27/21 09:41 Sodium Chloride 0.9% 10 Ml Syringe FLUSH 10 ml ASDIRECTED PRN Administration Keep Vein Open Sodium Chloride 2.5 ml 11/27/21 09:33 11/27/21 09:41 Sodium Chloride 0.9% 2.5 Ml Syringe FLUSH 2.5 ml ASDIRECTED PRN Administration Keep Vein Open Discontinued Medications Generic Name Dose Route Start Last Admin Trade Name Iqra PRN Reason Stop Dose Admin Sodium Chloride 1,000 mls @ 999 mls/hr 11/27/21 09:33 11/27/21 09:41 Normal Saline IV 11/27/21 10:33 999 mls/hr .Bolus ONE Administration Iopamidol 100 ml 11/27/21 10:18 11/27/21 10:19 Iopamidol 755 Mg/Ml 500 Ml Multipack Bottle IVPUSH 11/27/21 10:19 100 ml ONETIME STA Administration - Re-Assessments/Exams Free Text/Narrative Re-Assessment/Exam: 11/27/21 08:41 Patient turned over to me with likely cystitis. There are no complications. She is ambulatory to the bathroom. Since she was seen by my partner before the end of his shift she was unable to give us urine sample. By taking p.o. fluids she was able to give us a sample which was sent to the lab. hCG is negative. Patient tolerated fluids p.o. and did not vomit. She does not have any significant fever or back pain. 11/27/21 11:02 Dr. Jones from teleradiology called me and told me that she has a hemoperitoneum and a mass in her left ovary. She says she is on Xarelto for pulmonary embolus but she has not taken 1 today. Her last dose was yesterday morning. Patient instructed not to take it, ultrasound and type and screen ordered, further dictation will follow 11/27/21 11:10 Patient's last p.o. was 8:35 AM will be sent the urine. It was liquid only. 11/27/21 11:49 11/27/21 12:21 Ultrasound does document a mass in the adnexa however there was more blood than apparently on the CT. Patient appears stable and not orthostatic symptomatically. 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 11/27/21 12:[address] Ibarra for general surgery and he felt since there is no ovarian mass we should talk to [employer]IT [employer] CONDITIONING MECH[employer]IC. Discussed with Dr. Hudson and she agreed to place the patient on observation and will see the patient and be available to do an emergency intervention if necessary. Departure - Departure Time of Disposition: 13:00 Condition: Good Sepsis Event Note (ED) - Focused Exam Vital Signs: Vital Signs Temp Pulse Resp BP Pulse Ox 11/27/21 11:10 89 16 128/77 100 11/27/21 09:25 91 104/69 11/27/21 08:45 107 H 100/65 11/27/21 07:32 110 H 16 109/64 96 11/27/21 06:08 36.0 C L 120 H 17 119/86 98 - My Orders Last 24 Hours: My Active Orders 11/27/21 09:33 Sodium Chloride 0.9% [Saline Flush] 10 ml FLUSH ASDIRECTED PRN Sodium Chloride 0.9% [Saline Flush] 2.5 ml FLUSH ASDIRECTED PRN Saline Lock Insert [OM.PC] Stat 11/27/21 10:59 Pelvis Non OB Ltd [US] Stat 11/27/21 12:55 Admission Status [Patient Status] [ADT] Stat 11/27/21 12:57 Ondansetron [Zofran] 4 mg IVPUSH ONETIME ONE fentaNYL 50 mcg IVPUSH ONETIME ONE - Assessment/Plan Last 24 Hours: My Active Orders 11/27/21 09:33 Sodium Chloride 0.9% [Saline Flush] 10 ml FLUSH ASDIRECTED PRN Sodium Chloride 0.9% [Saline Flush] 2.5 ml FLUSH ASDIRECTED PRN Saline Lock Insert [OM.PC] Stat 11/27/21 10:59 Pelvis Non OB Ltd [US] Stat 11/27/21 12:55 Admission Status [Patient Status] [ADT] Stat 11/27/21 12:57 Ondansetron [Zofran] 4 mg IVPUSH ONETIME ONE fentaNYL 50 mcg IVPUSH ONETIME ONE
[2021-11-27] MEDS ORDERED: Sodium Chloride 0.9% 10 ML Syringe FLUSH PRN (09:33)
[2021-11-27] MEDS ORDERED: Sodium Chloride 0.9% 2.5 ML Syringe FLUSH PRN (09:33)
[2021-11-27] MEDS ORDERED: Sodium Chloride 0.9% 1,000 ML IV ONE (09:33)
[2021-11-27 10:10] LABS: BLOOD UREA NITROGEN,BUN 13 mg/dL (7.0-18.0); CARBON DIOXIDE,CO2 24.7 mmol/L (21.0-32.0); CHLORIDE,CL 102 mmol/L (98-107); GLUCOSE RANDOM 100 mg/dL (74-106); LIPASE 91 U/L (73-393); SODIUM,NA 135 mmol/L (136-145)
[2021-11-27] MEDS ORDERED: Iopamidol 755 MG/ML 500 ML Multipack Bottle IVPUSH STA (10:18)
--- NOTE | 2021-11-27 11:05 | CT ---
INDICATION: Suprapubic pain. COMPARISON: Lung base images from a November 24, 2021 CT of the chest. This included the upper abdomen. TECHNIQUE: CT examination of the abdomen and pelvis was performed following the uneventful intravenous administration of 100 cc of Omnipaque 350. Thin section axial images were obtained from the lung bases through the pubic symphysis. Oral contrast was not administered. Please note that all CT scans at this facility use dose modulation, iterative reconstruction, and/or weight-based dosing when appropriate to reduce radiation dose to as low as reasonably achievable. FINDINGS: LUNG BASES: Opacity at the right lung base probably scarring or a chronic pulmonary infarct as discussed in the 11/24/2021 study.Heart size stable at the lung bases. No pericardial effusion LIVER/BILIARY SYSTEM:Liver is normal in size. No focal mass or biliary ductal dilatation.The gall bladder appears normal. ADRENALS: Normal KIDNEYS, URETERS and BLADDER:The kidneys appear normal. No visible mass, calculus or hydronephrosis. The ureters and bladder as visualized appear normal. SPLEEN:Normal appearance. PANCREAS: Appears normal. RETROPERITONEUM and MESENTERY: There is no mass, adenopathy or aortic aneurysm. GASTROINTESTINAL SYSTEM: There is no evidence of diverticulitis, colitis, mechanical obstruction, or appendicitis. The small bowel as visualized appears normal. PELVIS: There is a left adnexal mass measuring about 6 centimeters. There is fluid within the abdomen and pelvis which likely represents a hemoperitoneum. This is hyperdense. There is seferino clot identified in the suprapubic area. The fluid is new at least in the upper abdomen as it was not present 11/24/2021. This could be due to left ovarian torsion, a ruptured left ovarian lesion, or a ruptured ectopic . It is also possible that the left adnexal finding is simply a blood clot. Sonography with Doppler is advised OSSEOUS STRUCTURES and ABDOMINAL WALL: There is an age-appropriate appearance of the osseous structures.No significant abdominal wall defect. OTHER: No free fluid or free air. IMPRESSION: 1. Moderate ascites which is new since 11/24/2021. This is hyperdense suggesting hemoperitoneum and there is seferino clot in the suprapubic area. There is a left adnexal mass measuring about 6 centimeters. This could be a ruptured ovarian lesion/ovarian cyst, a torsed ovary, a bleeding ovarian malignancy, a ruptured ectopic or other process. Recommend an ultrasound with Doppler for further assessment. 2. Other incidental nonacute appearing findings as discussed above. 3. I discussed the above findings with Dr. Cha at 11 a.m. on November 27, [address] Please note that all CT scans at this facility use dose modulation, iterative reconstruction, and/or weight-based dosing when appropriate to reduce radiation dose to as low as reasonably achievable. Dictated by Brent Jones MD @ 11/27/2021 11:04:24 AM (Electronically Signed)
[2021-11-27] MEDS ORDERED: Ondansetron 4 MG/2 ML SDV IVPUSH ONE (12:57)
[2021-11-27] MEDS ORDERED: fentaNYL 50 MCG/ML SDV IVPUSH ONE (12:57)
--- NOTE | 2021-11-27 13:21 | US ---
INDICATION: Pain. Source of hemoperitoneum. COMPARISON: CT of the abdomen and pelvis 11/27/2021. TECHNIQUE: 2D waters scale and color Doppler images were acquired of the pelvis using a transabdominal and transvaginal approach. FINDINGS: Sonographic images demonstrate a normal size and smooth outer contour of the uterus. The uterus is anteverted in position. The uterus measures 10.2 cm in length by 4.8 cm in AP diameter by 4.2 cm in transverse dimension. The myometrium has a normal uniform echotexture. The endometrial lining appears normal and measures 8 mm in composite thickness. The right ovary was not visualized. The left ovary measures 6.0 x 4.5 x 3.8 cm in size. The left ovary demonstrates normal arterial and venous blood flow on color Doppler analysis. There is a 2.2 x 1.4 x 2.7 cm complex thick-walled cystic lesion in the left ovary containing debris and internal septations. No internal vascularity. Large amount of complex free fluid in the pelvis compatible with blood products as seen on CT. IMPRESSION: 1. 2.7 cm complex thick-walled avascular cystic lesion in the left ovary most likely represents a hemorrhagic cyst. This could possibly represent the source of bleeding. Consider ultrasound follow-up in 6-12 weeks to ensure resolution. No evidence of left ovarian torsion. 2. Normal appearance of the uterus. The right ovary was not visualized. 3. Large amount of complex free fluid in the pelvis compatible with blood products as seen on CT. Dictated by Myrna Telles MD @ 11/27/2021 1:20:39 PM (Electronically Signed)
--- NOTE | 2021-11-27 15:23 | PCM.HP.2 ---
H&P History of Present Illness - General Date of Service: 11/27/21 Admit Problem/Dx: Admission Diagnosis/Problem Admission Diagnosis/Problem Abdominal pain Source of Information: Patient History Limitations: Reports: No Limitations - History of Present Illness Initial Comments - Free Text/Narative: 31 year old female presented to [facility] ED this morning at 0500 due to abdominal pain. States that her pain started last evening around 2100 and has increased since that time. Upon arrival to the hospital her pain was 8/10, currently 3/10 after receiving pain medication. UA, bHCG were negative in ED. Had a CT scan which should a 6cm right adnexal mass and free fluid within the pelvis. Ultrasound revealed a 2.7cm hemorrhagic cyst within the left ovary with free fluid in the posterior cul de sac. Right ovary not visualized on ultrasound. Patient's history is complicated by pulmonary embolism after the delivery of her last child in 2019. She has been on Xarelto since that time. Did not take the medication this morning. LMP 11/10/2021, reports regular monthly cycles. Has a history of constipation, last bowel movement this morning. Denies fever/chills, headache, dizziness, syncope, shortness of air, chest pain, nausea/vomiting, vaginal discharge or bleeding. 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 History: Reports: None [employer] History: Reports: Musculoskeletal History: Reports: None Neurological History: Reports: None Psychiatric History: Reports: None Endocrine/Metabolic History: Reports: Diabetes, Gestational Hematologic History: Reports: Anticoagulation Therapy Immunologic History: Reports: None Oncologic (Cancer) History: Reports: None Dermatologic History: Reports: None - Infectious Disease History Infectious Disease History: Reports: None - Past Surgical History Head Surgeries/Procedures: Reports: None HEENT Surgical History: Reports: None Cardiovascular Surgical History: Reports: None Respiratory Surgical History: Reports: None GI Surgical History: Reports: None Female Surgical History: Reports: None Endocrine Surgical History: Reports: None Neurological Surgical History: Reports: None Musculoskeletal Surgical History: Reports: None Oncologic Surgical History: Reports: None Dermatological Surgical History: Reports: None Social & Family History - Family History Family Medical History: No Pertinent Family History OBGYN: Reports: - Tobacco Use Tobacco Use Status *Q: Never Tobacco User Second Hand Smoke Exposure: No - Caffeine Use Caffeine Use: Reports: Energy Drinks, Soda, Tea - Recreational Drug Use Recreational Drug Use: No H&P Review of Systems - Review of Systems: Review Of Systems: See Below General: Reports: No Symptoms HEENT: Reports: No Symptoms Pulmonary: Reports: No Symptoms Cardiovascular: Reports: No Symptoms Gastrointestinal: Reports: Abdominal Pain, Constipation Genitourinary: Reports: Dysuria, Pain Musculoskeletal: Reports: No Symptoms Skin: Reports: No Symptoms Psychiatric: Reports: No Symptoms Neurological: Reports: No Symptoms Hematologic/Lymphatic: Reports: No Symptoms Immunologic: Reports: No Symptoms Exam - Exam Exam: See Below - Vital Signs Vital Signs: Last Vital Signs Temp 97.1 F 11/27/21 13:52 Pulse 81 11/27/21 13:56 Resp 16 11/27/21 13:56 BP 109/63 11/27/21 13:56 Pulse Ox 99 11/27/21 13:56 Weight: 160 lb 3.2 oz - Exam General: Alert Lungs: Clear to Auscultation, Normal Respiratory Effort Cardiovascular: Regular Rate, Regular Rhythm GI/Abdominal Exam: Soft, Distended (mild), Tender (mild, throughout) Back Exam: Normal Inspection, Full Range of Motion Extremities: Normal Inspection, Normal Range of Motion, Non-Tender, No Pedal Edema Skin: Warm, Dry, Intact Neurological: Cranial Nerves Intact Neuro Extensive - Mental Status: Normal Mood/Affect - Patient Data Lab Results Last 24 hrs: Laboratory Results - last 24 hr 11/27/21 11/27/21 11/27/21 Range/Units 08:25 08:25 09:45 WBC 10.92 (4.0-11.0) K/uL RBC 4.30 (4.30-5.90) M/uL Hgb 12.0 (12.0-16.0) g/dL Hct 36.4 (36.0-46.0) % MCV 84.7 (80.0-98.0) fL MCH 27.9 (27.0-32.0) pg MCHC 33.0 (31.0-37.0) g/dL RDW Std Deviation 43.6 (28.0-62.0) fl RDW Coeff of Conchita 14 (11.0-15.0) % Plt Count 333 (150-400) K/uL MPV 10.50 (7.40-12.00) fL Add Manual Diff YES Neutrophils % (Manual) 70 (48.0-80.0) % Lymphocytes % (Manual) 27 (16.0-40.0) % Monocytes % (Manual) 3 (0.0-15.0) % Nucleated RBC % 0.0 /100WBC Absolute Seg Neuts 7.6 H (1.4-5.7) Lymphocytes # (Manual) 2.9 H (0.6-2.4) Monocytes # (Manual) 0.3 (0.0-0.8) Nucleated RBCs # 0 K/uL Sodium (136-145) mmol/L Potassium (3.5-5.1) mmol/L Chloride (98-107) mmol/L Carbon Dioxide (21.0-32.0) mmol/L BUN (7.0-18.0) mg/dL Creatinine (0.6-1.0) mg/dL Est Cr Clr Drug Dosing mL/min Estimated GFR (MDRD) ml/min Glucose (74-106) mg/dL Calcium (8.5-10.1) mg/dL Total Bilirubin (0.2-1.0) mg/dL AST (15-37) IU/L ALT (14-63) IU/L Alkaline Phosphatase (46-116) U/L Total Protein (6.4-8.2) g/dL Albumin (3.4-5.0) g/dL Globulin (2.6-4.0) g/dL Albumin/Globulin Ratio (0.9-1.6) Lipase (73-393) U/L Urine Color YELLOW Urine Appearance CLEAR Urine pH 5.5 (5.0-8.0) Ur Specific [place] >= 1.030 (1.001-1.035) Urine Protein NEGATIVE (NEGATIVE) mg/dL Urine Glucose (UA) NEGATIVE (NEGATIVE) mg/dL Urine Ketones NEGATIVE (NEGATIVE) mg/dL Urine Occult Blood NEGATIVE (NEGATIVE) Urine Nitrite NEGATIVE (NEGATIVE) Urine Bilirubin NEGATIVE (NEGATIVE) Urine Urobilinogen 0.2 (<2.0) EU/dL Ur Leukocyte Esterase NEGATIVE (NEGATIVE) Urine RBC NONE SEEN (0-2/HPF) Urine WBC NONE SEEN (0-5/HPF) Ur Epithelial Cells RARE (NONE-FEW) Amorphous Sediment MODERATE (NEGATIVE) Urine Bacteria RARE (NEGATIVE) Urine HCG, Qual NEGATIVE (NEGATIVE) SARS-CoV-2 RNA (SUNSHINE) (NEGATIVE) Blood Type Antibody Screen 11/27/21 11/27/21 11/27/21 Range/Units 09:45 11:12 11:39 WBC (4.0-11.0) K/uL RBC (4.30-5.90) M/uL Hgb (12.0-16.0) g/dL Hct (36.0-46.0) % MCV (80.0-98.0) fL MCH (27.0-32.0) pg MCHC (31.0-37.0) g/dL RDW Std Deviation (28.0-62.0) fl RDW Coeff of [place] (11.0-15.0) % Plt Count (150-400) K/uL MPV (7.40-12.00) fL Add Manual Diff Neutrophils % (Manual) (48.0-80.0) % Lymphocytes % (Manual) (16.0-40.0) % Monocytes % (Manual) (0.0-15.0) % Nucleated RBC % /100WBC Absolute Seg Neuts (1.4-5.7) Lymphocytes # (Manual) (0.6-2.4) Monocytes # (Manual) (0.0-0.8) Nucleated RBCs # K/uL Sodium 135 L (136-145) mmol/L Potassium 4.0 (3.5-5.1) mmol/L Chloride 102 (98-107) mmol/L Carbon Dioxide 24.7 (21.0-32.0) mmol/L BUN 13 (7.0-18.0) mg/dL Creatinine 0.6 (0.6-1.0) mg/dL Est Cr Clr Drug Dosing 111.35 mL/min Estimated GFR (MDRD) > 60.0 ml/min Glucose 100 (74-106) mg/dL Calcium 9.1 (8.5-10.1) mg/dL Total Bilirubin 0.3 (0.2-1.0) mg/dL AST 18 (15-37) IU/L ALT 15 (14-63) IU/L Alkaline Phosphatase 69 (46-116) U/L Total Protein 7.7 (6.4-8.2) g/dL Albumin 3.9 (3.4-5.0) g/dL Globulin 3.8 (2.6-4.0) g/dL Albumin/Globulin Ratio 1.0 (0.9-1.6) Lipase 91 (73-393) U/L Urine Color Urine Appearance Urine pH (5.0-8.0) Ur Specific [place] (1.001-1.035) Urine Protein (NEGATIVE) mg/dL Urine Glucose (UA) (NEGATIVE) mg/dL Urine Ketones (NEGATIVE) mg/dL Urine Occult Blood (NEGATIVE) Urine Nitrite (NEGATIVE) Urine Bilirubin (NEGATIVE) Urine Urobilinogen (<2.0) EU/dL Ur Leukocyte Esterase (NEGATIVE) Urine RBC (0-2/HPF) Urine WBC (0-5/HPF) Ur Epithelial Cells (NONE-FEW) Amorphous Sediment (NEGATIVE) Urine Bacteria (NEGATIVE) Urine HCG, Qual (NEGATIVE) SARS-CoV-2 RNA (SUNSHINE) NEGATIVE (NEGATIVE) Blood Type A POSITIVE Antibody Screen NEGATIVE Result Diagrams: 11/27/21 09:45 11/27/21 09:45 Sepsis Event Note - Evaluation Sepsis Screening Result: No Definite Risk - Focused Exam Vital Signs: Vital Signs Temp Pulse Resp BP Pulse Ox 11/27/21 13:56 81 16 109/63 99 11/27/21 13:52 97.1 F 16 128/68 97 11/27/21 13:10 94 130/88 98 11/27/21 12:10 88 129/74 99 11/27/21 11:10 89 16 128/77 100 11/27/21 09:25 91 104/69 11/27/21 08:45 107 H 100/65 11/27/21 07:32 110 H 16 109/64 96 11/27/21 06:08 96.8 F L 120 H 17 119/86 98 Problem List Initiated/Reviewed/Updated: Yes Orders Last 24hrs: Active Orders 24 hr Category Date Time Status Admission Status [Patient Status] [ADT] Stat ADT 11/27/21 12:55 Active Telemetry Monitoring [Cardiac Monitoring] [RC] Q8H Care 11/27/21 13:53 Active Sodium Chloride 0.9% [Saline Flush] Med 11/27/21 09:33 Active 10 ml FLUSH ASDIRECTED PRN Sodium Chloride 0.9% [Saline Flush] Med 11/27/21 09:33 Active 2.5 ml FLUSH ASDIRECTED PRN Saline Lock Insert [OM.PC] Stat Oth 11/27/21 09:33 Ordered Medication Orders Sodium Chloride (Sodium Chloride 0.9% 10 Ml Syringe) 10 ml FLUSH ASDIRECTED PRN PRN Reason: Keep Vein Open Last Admin: 11/27/21 09:41 Dose: 10 ml Documented by: CARLOS EDUARDO Sodium Chloride (Sodium Chloride 0.9% 2.5 Ml Syringe) 2.5 ml FLUSH ASDIRECTED PRN PRN Reason: Keep Vein Open Last Admin: 11/27/21 09:41 Dose: 2.5 ml Documented by: CARLOS EDUARDO Assessment/Plan Comment:: 31 year old female with ruptured left ovarian cyst * Admit to Med/Surg for overnight observation * VSS, afebrile. Continue to monitor closely. * Hospitalist, Dr. Nicole, consulted due to history of PE and anticoagulation. * SCDs ordered, hold Xarelto * PO pain medications ordered PRN * Encourage ambulation and fluid intake * Type and screen ordered, Hgb 12. * COVID-19 test negative Dispo: stable. Continue to monitor closely overnight for decompensation due to bleeding from hemorrhagic cyst. Plan to discharge in AM if stable and have patient proceed with close follow up.
[2021-11-27] MEDS ORDERED: Acetaminophen 500 MG Tab PO PRN (16:37)
--- NOTE | 2021-11-27 17:53 | PCM.CONS ---
H&P History of Present Illness - General Date of Service: 11/27/21 Admit Problem/Dx: Admission Diagnosis/Problem Admission Diagnosis/Problem Abdominal pain - History of Present Illness Initial Comments - Free Text/Narative: 31 yo female with pmh of PE who presented with abdominal pain and found to have a hemorrhagic ovarian cyst. Patient last took her Xarelto yesterday. She was diagnosed with PE in January 2020 two months after delivering her first child. She had a repeat CT angio on December 2020 after delivering her second child for work up of pleuritic pain and shortness of breath which reported chronic PE. Repeat CT angio on 11/24/21 reported abnormal pulmonary arteries suggestive of chronic pulmonary emboli. She denies any symptoms of shortness of breath or chest pain. 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 History: Reports: None [employer]INCIPAL History: Reports: Musculoskeletal History: Reports: None Neurological History: Reports: None Psychiatric History: Reports: None Endocrine/Metabolic History: Reports: Diabetes, Gestational Hematologic History: Reports: Anticoagulation Therapy Immunologic History: Reports: None Oncologic (Cancer) History: Reports: None Dermatologic History: Reports: None - Infectious Disease History Infectious Disease History: Reports: None - Past Surgical History Head Surgeries/Procedures: Reports: None HEENT Surgical History: Reports: None Cardiovascular Surgical History: Reports: None Respiratory Surgical History: Reports: None GI Surgical History: Reports: None Female Surgical History: Reports: None Endocrine Surgical History: Reports: None Neurological Surgical History: Reports: None Musculoskeletal Surgical History: Reports: None Oncologic Surgical History: Reports: None Dermatological Surgical History: Reports: None Social & Family History - Family History Family Medical History: No Pertinent Family History OBGYN: Reports: - Tobacco Use Tobacco Use Status *Q: Never Tobacco User Second Hand Smoke Exposure: No - Caffeine Use Caffeine Use: Reports: Energy Drinks, Soda, Tea - Recreational Drug Use Recreational Drug Use: No H&P Review of Systems - Review of Systems: Review Of Systems: Comprehensive ROS is negative, except as noted in HPI. Exam - Exam Exam: See Below - Vital Signs Vital Signs: Last Vital Signs Temp 36.2 C 11/27/21 13:52 Pulse 81 11/27/21 13:56 Resp 16 11/27/21 13:56 BP 109/63 11/27/21 13:56 Pulse Ox 99 11/27/21 13:56 Weight: 72.665 kg - Exam General: Alert, Oriented HEENT: Mucosa Moist & [place] Lungs: Clear to Auscultation, Normal Respiratory Effort Cardiovascular: Regular Rate, Regular Rhythm GI/Abdominal Exam: Soft, Non-Tender Extremities: Non-Tender, No Pedal Edema Skin: Warm, Dry, Intact - Patient Data Lab Results Last 24 hrs: Laboratory Results - last 24 hr 11/27/21 11/27/21 11/27/21 Range/Units 08:25 08:25 09:45 WBC 10.92 (4.0-11.0) K/uL RBC 4.30 (4.30-5.90) M/uL Hgb 12.0 (12.0-16.0) g/dL Hct 36.4 (36.0-46.0) % MCV 84.7 (80.0-98.0) fL MCH 27.9 (27.0-32.0) pg MCHC 33.0 (31.0-37.0) g/dL RDW Std Deviation 43.6 (28.0-62.0) fl RDW Coeff of Conchita 14 (11.0-15.0) % Plt Count 333 (150-400) K/uL MPV 10.50 (7.40-12.00) fL Add Manual Diff YES Neutrophils % (Manual) 70 (48.0-80.0) % Lymphocytes % (Manual) 27 (16.0-40.0) % Monocytes % (Manual) 3 (0.0-15.0) % Nucleated RBC % 0.0 /100WBC Absolute Seg Neuts 7.6 H (1.4-5.7) Lymphocytes # (Manual) 2.9 H (0.6-2.4) Monocytes # (Manual) 0.3 (0.0-0.8) Nucleated RBCs # 0 K/uL Sodium (136-145) mmol/L Potassium (3.5-5.1) mmol/L Chloride (98-107) mmol/L Carbon Dioxide (21.0-32.0) mmol/L BUN (7.0-18.0) mg/dL Creatinine (0.6-1.0) mg/dL Est Cr Clr Drug Dosing mL/min Estimated GFR (MDRD) ml/min Glucose (74-106) mg/dL Calcium (8.5-10.1) mg/dL Total Bilirubin (0.2-1.0) mg/dL AST (15-37) IU/L ALT (14-63) IU/L Alkaline Phosphatase (46-116) U/L Total Protein (6.4-8.2) g/dL Albumin (3.4-5.0) g/dL Globulin (2.6-4.0) g/dL Albumin/Globulin Ratio (0.9-1.6) Lipase (73-393) U/L Urine Color YELLOW Urine Appearance CLEAR Urine pH 5.5 (5.0-8.0) Ur Specific [place] >= 1.030 (1.001-1.035) Urine Protein NEGATIVE (NEGATIVE) mg/dL Urine Glucose (UA) NEGATIVE (NEGATIVE) mg/dL Urine Ketones NEGATIVE (NEGATIVE) mg/dL Urine Occult Blood NEGATIVE (NEGATIVE) Urine Nitrite NEGATIVE (NEGATIVE) Urine Bilirubin NEGATIVE (NEGATIVE) Urine Urobilinogen 0.2 (<2.0) EU/dL Ur Leukocyte Esterase NEGATIVE (NEGATIVE) Urine RBC NONE SEEN (0-2/HPF) Urine WBC NONE SEEN (0-5/HPF) Ur Epithelial Cells RARE (NONE-FEW) Amorphous Sediment MODERATE (NEGATIVE) Urine Bacteria RARE (NEGATIVE) Urine HCG, Qual NEGATIVE (NEGATIVE) SARS-CoV-2 RNA (SUNSHINE) (NEGATIVE) Blood Type Antibody Screen 11/27/21 11/27/21 11/27/21 Range/Units 09:45 11:12 11:39 WBC (4.0-11.0) K/uL RBC (4.30-5.90) M/uL Hgb (12.0-16.0) g/dL Hct (36.0-46.0) % MCV (80.0-98.0) fL MCH (27.0-32.0) pg MCHC (31.0-37.0) g/dL RDW Std Deviation (28.0-62.0) fl RDW Coeff of [place]ita (11.0-15.0) % Plt Count (150-400) K/uL MPV (7.40-12.00) fL Add Manual Diff Neutrophils % (Manual) (48.0-80.0) % Lymphocytes % (Manual) (16.0-40.0) % Monocytes % (Manual) (0.0-15.0) % Nucleated RBC % /100WBC Absolute Seg Neuts (1.4-5.7) Lymphocytes # (Manual) (0.6-2.4) Monocytes # (Manual) (0.0-0.8) Nucleated RBCs # K/uL Sodium 135 L (136-145) mmol/L Potassium 4.0 (3.5-5.1) mmol/L Chloride 102 (98-107) mmol/L Carbon Dioxide 24.7 (21.0-32.0) mmol/L BUN 13 (7.0-18.0) mg/dL Creatinine 0.6 (0.6-1.0) mg/dL Est Cr Clr Drug Dosing 111.35 mL/min Estimated GFR (MDRD) > 60.0 ml/min Glucose 100 (74-106) mg/dL Calcium 9.1 (8.5-10.1) mg/dL Total Bilirubin 0.3 (0.2-1.0) mg/dL AST 18 (15-37) IU/L ALT 15 (14-63) IU/L Alkaline Phosphatase 69 (46-116) U/L Total Protein 7.7 (6.4-8.2) g/dL Albumin 3.9 (3.4-5.0) g/dL Globulin 3.8 (2.6-4.0) g/dL Albumin/Globulin Ratio 1.0 (0.9-1.6) Lipase 91 (73-393) U/L Urine Color Urine Appearance Urine pH (5.0-8.0) Ur Specific [place] (1.001-1.035) Urine Protein (NEGATIVE) mg/dL Urine Glucose (UA) (NEGATIVE) mg/dL Urine Ketones (NEGATIVE) mg/dL Urine Occult Blood (NEGATIVE) Urine Nitrite (NEGATIVE) Urine Bilirubin (NEGATIVE) Urine Urobilinogen (<2.0) EU/dL Ur Leukocyte Esterase (NEGATIVE) Urine RBC (0-2/HPF) Urine WBC (0-5/HPF) Ur Epithelial Cells (NONE-FEW) Amorphous Sediment (NEGATIVE) Urine Bacteria (NEGATIVE) Urine HCG, Qual (NEGATIVE) SARS-CoV-2 RNA (SUNSHINE) NEGATIVE (NEGATIVE) Blood Type A POSITIVE Antibody Screen NEGATIVE Result Diagrams: 11/27/21 09:45 11/27/21 09:45 Sepsis Event Note - Evaluation Sepsis Screening Result: No Definite Risk - Focused Exam Vital Signs: Vital Signs Temp Pulse Resp BP Pulse Ox 11/27/21 13:56 81 16 109/63 99 11/27/21 13:52 36.2 C 16 128/68 97 11/27/21 13:10 94 130/88 98 11/27/21 12:10 88 129/74 99 11/27/21 11:10 89 16 128/77 100 11/27/21 09:25 91 104/69 11/27/21 08:45 107 H 100/65 11/27/21 07:32 110 H 16 109/64 96 11/27/21 06:08 36.0 C L 120 H 17 119/86 98 Consult PN Assessment/Plan Procedures: Procedures ASSAY OF FREE THYROXINE (04/09/20) ASSAY OF NATRIURETIC PEPTIDE (07/07/21) ASSAY OF TROPONIN QUANT (01/29/21) ASSAY THYROID STIM HORMONE (04/09/20) BLOOD TYPING SEROLOGIC ABO (08/30/20) BLOOD TYPING SEROLOGIC RH(D) (08/30/20) C-REACTIVE PROTEIN (04/02/20) TESS DNA DIR PROBE (07/10/19) CHORIONIC GONADOTROPIN TEST (06/25/20) CHYLMD TRACH DNA AMP PROBE (07/09/20) COMPLETE CBC AUTOMATED (11/13/20) COMPLETE CBC W/AUTO DIFF WBC (09/01/21) COMPREHEN METABOLIC PANEL (01/29/21) CT ANGIOGRAPHY CHEST (11/24/21) CULTURE SCREEN ONLY (01/16/20) CYTOPATH C/V AUTO FLUID REDO (07/09/20) DRUG TEST PRSMV DIR OPT OBS (07/09/20) ELECTROCARDIOGRAM TRACING (01/29/21) EMERGENCY DEPT VISIT (01/29/21) EMERGENCY DEPT VISIT (04/02/20) EXTREMITY STUDY (04/10/20) BIOPHYS PROFIL W/O NST (01/08/21) BIOPHYS PROFILE W/NST (01/22/21) NON-STRESS TEST (01/22/21) FIBRIN DEGRADATION QUANT (04/02/20) CESPEDES VAG DNA DIR PROBE (07/10/19) GLUCOSE TEST (11/13/20) GLUCOSE TOLERANCE TEST (GTT) (11/15/20) GLYCOSYLATED HEMOGLOBIN TEST (01/29/21) HEPATITIS B SURFACE AG IA (08/30/20) HEPATITIS C AB TEST (08/30/20) HIV-1 AG W/HIV-1 & -2 AB AG IA (08/30/20) IRON BINDING TEST (01/29/21) METABOLIC PANEL TOTAL CA (07/17/21) N.GONORRHOEAE DNA AMP PROB (07/09/20) OB US >/= 14 WKS ADDL FETUS (12/13/20) OB US >/= 14 WKS SNGL FETUS (10/18/19) OB US FOLLOW-UP PER FETUS (01/09/21) OB US LIMITED FETUS(S) (12/13/20) PROTHROMBIN TIME (01/29/21) RBC ANTIBODY SCREEN (11/13/20) RBC SED RATE AUTOMATED (04/02/20) REVISION OF CERVIX (11/07/20) ROUTINE VENIPUNCTURE (09/01/21) RUBELLA ANTIBODY (08/30/20) SARS-COV-2 COVID-19 AMP PRB (01/29/21) STREP B DNA AMP PROBE (01/22/21) SYPHILIS TEST NON-TREP QUAL (08/30/20) THER/PROPH/DIAG INJ IV PUSH (01/29/21) THER/PROPH/DIAG INJ SC/IM (01/29/21) TRANSVAGINAL US OBSTETRIC (10/18/19) TRICHOMONAS VAGIN DIR PROBE (07/10/19) TTE W/DOPPLER COMPLETE (01/29/21) TX/PRO/DX INJ NEW DRUG ADDON (01/29/21) URINALYSIS AUTO W/O SCOPE (07/09/20) URINALYSIS AUTO W/SCOPE (01/29/21) URINE CULTURE/COLONY COUNT (01/29/21) URINE TEST (04/02/20) X-RAY EXAM CHEST 2 VIEWS (07/07/21) Problem List Initiated/Reviewed/Updated: Yes My Orders Last 24 Hours: My Active Orders 11/27/21 13:53 Telemetry Monitoring [Cardiac Monitoring] [RC] Q8H Plan: 31 yo female admitted for hemorrhagic ovarian cyst. Patient likely has chronic pulmonary emboli. We are holding Xarelto due to her acute bleed. When her bleeding risk has decreased would consider restarting anticoagulation.
[2021-11-27] MEDS: oxyCODONE 5 MG Tab PO PRN (18:53)
[2021-11-28] MEDS: oxyCODONE 5 MG Tab PO PRN (06:01)
--- NOTE | 2021-11-28 06:13 | PCM.PN ---
- General Info Date of Service: 11/28/21 Admission Dx/Problem (Free Text): Admission Diagnosis/Problem Admission Diagnosis/Problem Abdominal pain Subjective Update: Ambulating about room during rounds. Pain controlled overnight, able to rest. Received pain medication this morning which has resolved her pain. Ambulating and voiding without difficulty. Tolerating regular diet. Has not had a bowel movement since yesterday and c/o bloating. Desires trial of stool softener this morning. Denies fever/chills, shortness of air, chest pain, nausea or vomiting. - Patient Data Vitals - Most Recent: Last Vital Signs Temp 97.3 F 11/28/21 04:00 Pulse 87 11/28/21 04:00 Resp 16 11/28/21 04:00 BP 118/67 11/28/21 04:00 Pulse Ox 98 11/28/21 04:00 Weight - Most Recent: 160 lb 3.2 oz I&O - Last 24 Hours: Intake & Output 11/27/21 11/27/21 11/28/21 14:59 22:59 06:59 Intake Total 350 1000 Output Total 100 700 Balance 250 300 Lab Results Last 24 Hours: Laboratory Results - last 24 hr 11/27/21 11/27/21 11/27/21 Range/Units 08:25 08:25 09:45 WBC 10.92 (4.0-11.0) K/uL RBC 4.30 (4.30-5.90) M/uL Hgb 12.0 (12.0-16.0) g/dL Hct 36.4 (36.0-46.0) % MCV 84.7 (80.0-98.0) fL MCH 27.9 (27.0-32.0) pg MCHC 33.0 (31.0-37.0) g/dL RDW Std Deviation 43.6 (28.0-62.0) fl RDW Coeff of Conchita 14 (11.0-15.0) % Plt Count 333 (150-400) K/uL MPV 10.50 (7.40-12.00) fL Add Manual Diff YES Neutrophils % (Manual) 70 (48.0-80.0) % Lymphocytes % (Manual) 27 (16.0-40.0) % Monocytes % (Manual) 3 (0.0-15.0) % Nucleated RBC % 0.0 /100WBC Absolute Seg Neuts 7.6 H (1.4-5.7) Lymphocytes # (Manual) 2.9 H (0.6-2.4) Monocytes # (Manual) 0.3 (0.0-0.8) Nucleated RBCs # 0 K/uL Sodium (136-145) mmol/L Potassium (3.5-5.1) mmol/L Chloride (98-107) mmol/L Carbon Dioxide (21.0-32.0) mmol/L BUN (7.0-18.0) mg/dL Creatinine (0.6-1.0) mg/dL Est Cr Clr Drug Dosing mL/min Estimated GFR (MDRD) ml/min Glucose (74-106) mg/dL Calcium (8.5-10.1) mg/dL Total Bilirubin (0.2-1.0) mg/dL AST (15-37) IU/L ALT (14-63) IU/L Alkaline Phosphatase (46-116) U/L Total Protein (6.4-8.2) g/dL Albumin (3.4-5.0) g/dL Globulin (2.6-4.0) g/dL Albumin/Globulin Ratio (0.9-1.6) Lipase (73-393) U/L Urine Color YELLOW Urine Appearance CLEAR Urine pH 5.5 (5.0-8.0) Ur Specific [place] >= 1.030 (1.001-1.035) Urine Protein NEGATIVE (NEGATIVE) mg/dL Urine Glucose (UA) NEGATIVE (NEGATIVE) mg/dL Urine Ketones NEGATIVE (NEGATIVE) mg/dL Urine Occult Blood NEGATIVE (NEGATIVE) Urine Nitrite NEGATIVE (NEGATIVE) Urine Bilirubin NEGATIVE (NEGATIVE) Urine Urobilinogen 0.2 (<2.0) EU/dL Ur Leukocyte Esterase NEGATIVE (NEGATIVE) Urine RBC NONE SEEN (0-2/HPF) Urine WBC NONE SEEN (0-5/HPF) Ur Epithelial Cells RARE (NONE-FEW) Amorphous Sediment MODERATE (NEGATIVE) Urine Bacteria RARE (NEGATIVE) Urine HCG, Qual NEGATIVE (NEGATIVE) SARS-CoV-2 RNA (SUNSHINE) (NEGATIVE) Blood Type Antibody Screen 11/27/21 11/27/21 11/27/21 Range/Units 09:45 11:12 11:39 WBC (4.0-11.0) K/uL RBC (4.30-5.90) M/uL Hgb (12.0-16.0) g/dL Hct (36.0-46.0) % MCV (80.0-98.0) fL MCH (27.0-32.0) pg MCHC (31.0-37.0) g/dL RDW Std Deviation (28.0-62.0) fl RDW Coeff of Conchita (11.0-15.0) % Plt Count (150-400) K/uL MPV (7.40-12.00) fL Add Manual Diff Neutrophils % (Manual) (48.0-80.0) % Lymphocytes % (Manual) (16.0-40.0) % Monocytes % (Manual) (0.0-15.0) % Nucleated RBC % /100WBC Absolute Seg Neuts (1.4-5.7) Lymphocytes # (Manual) (0.6-2.4) Monocytes # (Manual) (0.0-0.8) Nucleated RBCs # K/uL Sodium 135 L (136-145) mmol/L Potassium 4.0 (3.5-5.1) mmol/L Chloride 102 (98-107) mmol/L Carbon Dioxide 24.7 (21.0-32.0) mmol/L BUN 13 (7.0-18.0) mg/dL Creatinine 0.6 (0.6-1.0) mg/dL Est Cr Clr Drug Dosing 111.35 mL/min Estimated GFR (MDRD) > 60.0 ml/min Glucose 100 (74-106) mg/dL Calcium 9.1 (8.5-10.1) mg/dL Total Bilirubin 0.3 (0.2-1.0) mg/dL AST 18 (15-37) IU/L ALT 15 (14-63) IU/L Alkaline Phosphatase 69 (46-116) U/L Total Protein 7.7 (6.4-8.2) g/dL Albumin 3.9 (3.4-5.0) g/dL Globulin 3.8 (2.6-4.0) g/dL Albumin/Globulin Ratio 1.0 (0.9-1.6) Lipase 91 (73-393) U/L Urine Color Urine Appearance Urine pH (5.0-8.0) Ur Specific [place] (1.001-1.035) Urine Protein (NEGATIVE) mg/dL Urine Glucose (UA) (NEGATIVE) mg/dL Urine Ketones (NEGATIVE) mg/dL Urine Occult Blood (NEGATIVE) Urine Nitrite (NEGATIVE) Urine Bilirubin (NEGATIVE) Urine Urobilinogen (<2.0) EU/dL Ur Leukocyte Esterase (NEGATIVE) Urine RBC (0-2/HPF) Urine WBC (0-5/HPF) Ur Epithelial Cells (NONE-FEW) Amorphous Sediment (NEGATIVE) Urine Bacteria (NEGATIVE) Urine HCG, Qual (NEGATIVE) SARS-CoV-2 RNA (SUNSHINE) NEGATIVE (NEGATIVE) Blood Type A POSITIVE Antibody Screen NEGATIVE Med Orders - Current: Current Medications Acetaminophen (Acetaminophen 500 Mg Tab) 1,000 mg PO Q6H PRN PRN Reason: Cramping Last Admin: 11/27/21 20:46 Dose: 1,000 mg Documented by: Oxycodone HCl (Oxycodone 5 Mg Tab) 5 mg PO Q4H PRN PRN Reason: Abdominal Pain Last Admin: 11/28/21 06:01 Dose: 5 mg Documented by: Sodium Chloride (Sodium Chloride 0.9% 10 Ml Syringe) 10 ml FLUSH ASDIRECTED PRN PRN Reason: Keep Vein Open Last Admin: 11/27/21 09:41 Dose: 10 ml Documented by: Sodium Chloride (Sodium Chloride 0.9% 2.5 Ml Syringe) 2.5 ml FLUSH ASDIRECTED PRN PRN Reason: Keep Vein Open Last Admin: 11/27/21 09:41 Dose: 2.5 ml Documented by: Discontinued Medications Fentanyl (Fentanyl 50 Mcg/Ml Sdv) 50 mcg IVPUSH ONETIME ONE Stop: 11/27/21 12:58 Last Admin: 11/27/21 13:06 Dose: 50 mcg Documented by: Sodium Chloride (Normal Saline) 1,000 mls @ 999 mls/hr IV .Bolus ONE Stop: 11/27/21 10:33 Last Admin: 11/27/21 09:41 Dose: 999 mls/hr Documented by: Iopamidol (Iopamidol 755 Mg/Ml 500 Ml Multipack Bottle) 100 ml IVPUSH ONETIME STA Stop: 11/27/21 10:19 Last Admin: 11/27/21 10:19 Dose: 100 ml Documented by: Ondansetron HCl (Ondansetron 4 Mg/2 Ml Sdv) 4 mg IVPUSH ONETIME ONE Stop: 11/27/21 12:58 Last Admin: 11/27/21 13:06 Dose: 4 mg Documented by: - Exam General: Alert Lungs: Clear to Auscultation, Normal Respiratory Effort Cardiovascular: Regular Rate, Regular Rhythm GI/Abdominal Exam: Soft, Non-Tender, Distended (mild) Back Exam: Normal Inspection, Full Range of Motion Extremities: Normal Range of Motion, Non-Tender, No Pedal Edema Skin: Warm, Dry, Intact Neurological: No New Focal Deficit Psy/Mental Status: Normal Mood - Patient Data Lab Results Last 24 hrs: Laboratory Results - last 24 hr 11/27/21 11/27/21 11/27/21 Range/Units 08:25 08:25 09:45 WBC 10.92 (4.0-11.0) K/uL RBC 4.30 (4.30-5.90) M/uL Hgb 12.0 (12.0-16.0) g/dL Hct 36.4 (36.0-46.0) % MCV 84.7 (80.0-98.0) fL MCH 27.9 (27.0-32.0) pg MCHC 33.0 (31.0-37.0) g/dL RDW Std Deviation 43.6 (28.0-62.0) fl RDW Coeff of Conchita 14 (11.0-15.0) % Plt Count 333 (150-400) K/uL MPV 10.50 (7.40-12.00) fL Add Manual Diff YES Neutrophils % (Manual) 70 (48.0-80.0) % Lymphocytes % (Manual) 27 (16.0-40.0) % Monocytes % (Manual) 3 (0.0-15.0) % Nucleated RBC % 0.0 /100WBC Absolute Seg Neuts 7.6 H (1.4-5.7) Lymphocytes # (Manual) 2.9 H (0.6-2.4) Monocytes # (Manual) 0.3 (0.0-0.8) Nucleated RBCs # 0 K/uL Sodium (136-145) mmol/L Potassium (3.5-5.1) mmol/L Chloride (98-107) mmol/L Carbon Dioxide (21.0-32.0) mmol/L BUN (7.0-18.0) mg/dL Creatinine (0.6-1.0) mg/dL Est Cr Clr Drug Dosing mL/min Estimated GFR (MDRD) ml/min Glucose (74-106) mg/dL Calcium (8.5-10.1) mg/dL Total Bilirubin (0.2-1.0) mg/dL AST (15-37) IU/L ALT (14-63) IU/L Alkaline Phosphatase (46-116) U/L Total Protein (6.4-8.2) g/dL Albumin (3.4-5.0) g/dL Globulin (2.6-4.0) g/dL Albumin/Globulin Ratio (0.9-1.6) Lipase (73-393) U/L Urine Color YELLOW Urine Appearance CLEAR Urine pH 5.5 (5.0-8.0) Ur Specific [place] >= 1.030 (1.001-1.035) Urine Protein NEGATIVE (NEGATIVE) mg/dL Urine Glucose (UA) NEGATIVE (NEGATIVE) mg/dL Urine Ketones NEGATIVE (NEGATIVE) mg/dL Urine Occult Blood NEGATIVE (NEGATIVE) Urine Nitrite NEGATIVE (NEGATIVE) Urine Bilirubin NEGATIVE (NEGATIVE) Urine Urobilinogen 0.2 (<2.0) EU/dL Ur Leukocyte Esterase NEGATIVE (NEGATIVE) Urine RBC NONE SEEN (0-2/HPF) Urine WBC NONE SEEN (0-5/HPF) Ur Epithelial Cells RARE (NONE-FEW) Amorphous Sediment MODERATE (NEGATIVE) Urine Bacteria RARE (NEGATIVE) Urine HCG, Qual NEGATIVE (NEGATIVE) SARS-CoV-2 RNA (SUNSHINE) (NEGATIVE) Blood Type Antibody Screen 11/27/21 11/27/21 11/27/21 Range/Units 09:45 11:12 11:39 WBC (4.0-11.0) K/uL RBC (4.30-5.90) M/uL Hgb (12.0-16.0) g/dL Hct (36.0-46.0) % MCV (80.0-98.0) fL MCH (27.0-32.0) pg MCHC (31.0-37.0) g/dL RDW Std Deviation (28.0-62.0) fl RDW Coeff of Conchita (11.0-15.0) % Plt Count (150-400) K/uL MPV (7.40-12.00) fL Add Manual Diff Neutrophils % (Manual) (48.0-80.0) % Lymphocytes % (Manual) (16.0-40.0) % Monocytes % (Manual) (0.0-15.0) % Nucleated RBC % /100WBC Absolute Seg Neuts (1.4-5.7) Lymphocytes # (Manual) (0.6-2.4) Monocytes # (Manual) (0.0-0.8) Nucleated RBCs # K/uL Sodium 135 L (136-145) mmol/L Potassium 4.0 (3.5-5.1) mmol/L Chloride 102 (98-107) mmol/L Carbon Dioxide 24.7 (21.0-32.0) mmol/L BUN 13 (7.0-18.0) mg/dL Creatinine 0.6 (0.6-1.0) mg/dL Est Cr Clr Drug Dosing 111.35 mL/min Estimated GFR (MDRD) > 60.0 ml/min Glucose 100 (74-106) mg/dL Calcium 9.1 (8.5-10.1) mg/dL Total Bilirubin 0.3 (0.2-1.0) mg/dL AST 18 (15-37) IU/L ALT 15 (14-63) IU/L Alkaline Phosphatase 69 (46-116) U/L Total Protein 7.7 (6.4-8.2) g/dL Albumin 3.9 (3.4-5.0) g/dL Globulin 3.8 (2.6-4.0) g/dL Albumin/Globulin Ratio 1.0 (0.9-1.6) Lipase 91 (73-393) U/L Urine Color Urine Appearance Urine pH (5.0-8.0) Ur Specific [place] (1.001-1.035) Urine Protein (NEGATIVE) mg/dL Urine Glucose (UA) (NEGATIVE) mg/dL Urine Ketones (NEGATIVE) mg/dL Urine Occult Blood (NEGATIVE) Urine Nitrite (NEGATIVE) Urine Bilirubin (NEGATIVE) Urine Urobilinogen (<2.0) EU/dL Ur Leukocyte Esterase (NEGATIVE) Urine RBC (0-2/HPF) Urine WBC (0-5/HPF) Ur Epithelial Cells (NONE-FEW) Amorphous Sediment (NEGATIVE) Urine Bacteria (NEGATIVE) Urine HCG, Qual (NEGATIVE) SARS-CoV-2 RNA (SUNSHINE) NEGATIVE (NEGATIVE) Blood Type A POSITIVE Antibody Screen NEGATIVE Result Diagrams: 11/28/21 06:04 11/27/21 09:45 Sepsis Event Note - Evaluation Sepsis Screening Result: No Definite Risk - Focused Exam Vital Signs: Vital Signs Temp Pulse Resp BP Pulse Ox 11/28/21 04:00 97.3 F 87 16 118/67 98 11/28/21 01:00 97.2 F 91 16 112/63 100 11/27/21 20:48 98.0 F 80 16 101/58 L 98 - Problem List Review Problem List Initiated/Reviewed/Updated: Yes - My Orders Last 24 Hours: My Active Orders 11/27/21 Dinner Regular Diet [DIET] 11/27/21 16:34 Antiembolic Devices [RC] PER UNIT ROUTINE SCD [Sequential Compression Device] [OM.PC] Routine 11/27/21 16:36 Consult to Physician [CONS] Routine 11/27/21 16:37 Notify Provider Consults [RC] ASDIRECTED Acetaminophen [Tylenol Extra Strength] 1,000 mg PO Q6H PRN oxyCODONE 5 mg PO Q4H PRN 11/28/21 05:21 CBC WITH AUTO DIFF [HEME] Routine - Plan Plan:: 31 year old female with ruptured left ovarian cyst * VSS, afebrile. * Hospitalist, Dr. Nicole, consulted due to history of PE and anticoagulation. Recommends holding anticoagulation at this time with close follow up with OBGYN and Dr. Westfall (PCP). * SCDs while in hospital, hold Xarelto * PO pain medications ordered PRN * Encourage ambulation and fluid intake * Type and screen ordered, Hgb 12. Repeat CBC ordered for this AM. * COVID-19 test negative * Colace ordered due to constipation. Dispo: stable. Continue to monitor closely overnight for decompensation due to bleeding from hemorrhagic cyst. Plan to discharge in AM if stable and have patient proceed with close follow up.
[2021-11-28 07:54] VITALS: BP 107/58; PULSE 75
[2021-11-28] MEDS ORDERED: Ferrous Sulfate 325 MG Tab PO SCH (08:00)
[2021-11-28] MEDS ORDERED: Docusate Sodium 100 MG Cap PO SCH (09:00)
== END 2021-11-28 13:47 | disposition home or self-care (01) ==
LOC: MW.ED 05:50 → MW.MS 12:55
PROVIDERS: ADMIT Obstetrics & Gynecology; ATTEND Obstetrics & Gynecology
DX: N83.202 Unspecified ovarian cyst, left side (principal); I10 Essential (primary) hypertension; Z20.822 Contact with and (suspected) exposure to COVID-19
CPT/HCPCS: 36415; 74177; 74177-26; 76857; 76857-26; 80053; 81001; 81025; 83690; 85025; 86850; 86900; 86901; 96374; 96375; 99285-25; A9270-GY; J2405; J3010; J7030; Q9967; U0002

== ENCOUNTER 2025-01-07 00:23 | Emergency (ER) | payer OTHER ==
[2025-01-07 00:29] VITALS: PULSE 74
[2025-01-07] MEDS: Diphtheria,Pertussis(Acell),Tetanus Vaccine 0.5 ML Syringe IM ONE (00:46)
[2025-01-07] MEDS: Lidocaine 1% 5 ML VIAL INJECT ONE (01:02)
[2025-01-07 02:20] VITALS: BP 126/87
== END 2025-01-07 02:19 | disposition home or self-care (01) ==
LOC: MW.ED 00:23
DX: S61.217A Laceration without foreign body of left little finger without damage to nail, initial encounter (principal); I10 Essential (primary) hypertension; Z75.8 Other problems related to medical facilities and other health care; Z23 Encounter for immunization; W26.8XXA Contact with other sharp object(s), not elsewhere classified, initial encounter; Y93.89 Activity, other specified
CPT/HCPCS: 12001; 73120-26-LT; 73120-LT; 90471; 90715; 99283-25; J3490